=== PATIENT | female | born 1935 | race Caucasian/White ===

== ENCOUNTER 2017-12-12 08:56 | Inpatient (IN) | payer MEDICARE, BC, SELFPAY ==
[2017-12-12] VITALS (14 sets, daily range): BP systolic 130–200; BP diastolic 82–92; PULSE 75–98; RESP 12–18; TEMP 36.5–37; O2SAT 91–98; BMI 27.3; BMI 26.6
--- NOTE | 2017-12-12 09:06 | NURSING ---
NO LW OR POA
--- NOTE | 2017-12-12 09:14 | CT_ITS ---
STUDY: CT BRAIN WITHOUT CONTRAST REASON FOR EXAM: Female, 82 years old. Left-sided numbness RADIATION DOSAGE (If Supplied By Facility): CTDIvol = ( 44.99 ) mGy, DLP = ( 728.62 ) mGycm TECHNIQUE: Transaxial CT imaging of the brain was performed without administration of intravenous contrast material. Individualized dose optimization techniques were used for this CT. COMPARISON: 10/02/2009 FINDINGS: Normal soft tissue structures. Normal calvarium. There is mild cerebral atrophy with widening of the extra-axial spaces and ventricular dilatation. There are areas of decreased attenuation within the white matter tracts of the supratentorial brain, consistent with microvascular disease changes. Normal basal ganglia and thalami. Normal brainstem. There is mild cerebellar atrophy. There is no intracranial hemorrhage. At the posterior aspect of the right frontal lobe, there is a subtle area of rosen/white matter differentiation loss which may represent an area of acute ischemia. Normal visualized paranasal sinuses. CT/Brain/Head without Contrast IMPRESSION: Possible subtle area of acute ischemia in the posterior right frontal lobe. Otherwise, chronic conclusions changes of the brain. If there is high clinical suspicion for acute stroke, recommend MRI of the brain Electronically Signed: Phil Eason DO at 10:41 EDT Tel , Service support ,
--- NOTE | 2017-12-12 09:14 | EKG12_ITS ---
Test Reason : Blood Pressure : / mmHG Vent. Rate : 079 BPM Atrial Rate : 079 BPM P-R Int : 198 ms QRS Dur : 080 ms QT Int : 390 ms P-R-T Axes : 048 -14 044 degrees QTc Int : 447 ms Normal sinus rhythm Poor R wave progression Confirmed by ANA CHRISTENSEN, DARLYN ([id number]), associate entertainment editor DEYVI LYNCH ([id number]) on 12/14/2017 1:06:10 PM Referred By: PRERNA Confirmed By:DARLYN PEREZ MD
[2017-12-12] MEDS: Labetalol 100 MG/20 ML Vial 10 MG IV (09:30)
[2017-12-12 09:41] LABS: Absolute Lymphocyte Count 3.09 X10^3/ul (0.83-4.51); Basophil# 0.02 X10^3/uL; Basophil% 0.3 % (0-1); Eosinophils% 1.5 % (0-5); Hemoglobin 13.8 g/dl (12.0-15.0); Lymphocyte # 3.09 X10^3/ul (4.0); Lymphocyte % 45.4 % (19-41); Mean Corp Hgb Conc 32.1 g/gl (32-36); Mean Corpuscular Hgb 27.9 pg (27.0-32.0); Mean Corpuscular Volume 86.9 fL (81-99); Mean Platelet Vol. 11.2 fl (6.2-12.0); Monocyte# 0.57 X10^3/uL; Monocyte% 8.4 % (0-10); Neutrophil # 3.01 X10^3/uL (2.7-7.7); Neutrophil % 44.3 % (47-70); POSITIVE COUNT NO; POSITIVE DIFFERENTIAL NO; POSITIVE MORPHOLOGY NO; Platelet Count 209 K/mm3 (150-450); RBC Distribution Width CV 14.4 % (11.6-14.6); RBC Distribution Width SD 45.1 fl (35.1-43.9); Red Blood Count 4.95 M/mm3 (4.2-5.4); White Blood Count 6.8 K/mm3 (4.4-11.0)
[2017-12-12 09:50] LABS: Partial Thromboplast Time 29.3 Seconds (24.1-36.2)
[2017-12-12 09:55] LABS: Anion Gap 10 (5-15); BUN 16 mg/dL (7-18); Calcium,Total 9.9 mg/dL (8.5-10.1); Chloride 107 mmol/L (98-107); Creatinine, Serum 1.07 mg/dL (0.55-1.02); EST Glomerular Filtration Rate 52 mL/min (>60); Est Glom Filt Rate - Afr Amer 63 mL/min (>60); Estimated Creatinine Clearance 32.06 ml/min; Glucose 116 mg/dL (74-106); Potassium 3.7 mmol/L (3.5-5.1); Sodium Level 144 mmol/L (136-145)
--- NOTE | 2017-12-12 10:21 | ED.VISSUMM ---
- ER Visit Summary Date of Service: 12/12/17 Chief Complaint: Paresthesia History of Present Illness: The patient is a 82 F who presents with paresthesia left side. Onset 0700. Patient reports symptoms are better. She believes she had problem getting words out. did not noted any problem with fluency or dysarthria. She does complain of bifrontal headache. She denied any double vision, blurred vision or loss of vision. She denied any ringing in ears. She does have history of hearing problems. There is no history of M?ni?re's disease. She denies any neck pain. She denies chest pain, orthopnea or PND. She denies dyspnea, cough or dyspnea on exertion. She denies abdominal pain, nausea, vomiting or diarrhea. She denies dysuria, frequency, urgency or hematuria. She denies any myalgias arthralgias or back pain. She denies any problems with bleeding diastases or bruising easily. She denies any allergic type symptoms. She has not a good informant. There is no history of TIA or CVA. There is a history hypertension, decreased hearing fibromyalgia. Physical Examination: Initial blood pressure is 185/110. NIH is 1 for altered sensation on the left. HEENT exam is remarkable for prior cataract surgery. Trachea midline. No carotid bruit. Heart is regular without murmur, gallop or rub. S1 and S2 are normal. Lungs are clear to auscultation with good movement of air bilaterally. Abdomen soft nontender with no palpable cell mass or abdominal bruit. Distal pulses upper and lower extremity and symmetric. Patient is alert and oriented ?3. Motor is 5 over 5. Sensory is remarkable for altered sensation left side. DTRs are symmetric with no clonus or Babinski sign. Cranial 2 through 12 are intact. Cerebellar testing is normal. Test Results: CBC is remarkable for lymphocytosis. Patient metabolic panel reveals slight elevation in creatinine 1.07 and glucose 117. Coags normal. CT of the head without contrast per my review reveals no intracranial bleed. There is no mass-effect or shift. There is mild atrophy. There is no obvious stroke. Awaiting official radiology read. Radiologist report was read and there is apparent subtle ischemic stroke posterior right frontal lobe. Emergency Department Course and Treatment: With complaint of headache, altered sensation left side elevated blood pressure this may represent hypertensive urgency emergency versus TIA. Stroke order set was initiated. She was treated with 10 mg of labetalol. A second dose of labetalol was ordered however that was informed by nursing staff prior to administration her most recent blood pressure is 153/84. The second dose of labetalol was canceled. Treatment Plan: Evaluation for stroke versus hypertensive urgency/emergency Disposition: Patient to be admitted PCU Impression: 1. Acute right frontal lobe ischemic stroke 2. Hypertensive urgency/emergency 3. History of mitral valve heart disease This note was generated with [employer] dictation software. It may contain incorrect words, spelling, and punctuation that were not noted in review of the chart prior to signing ED Disposition - Plan for ED Patient: Chief Complaint: Neuro S/Sx Referrals: Ana Palmer MD [Primary Care Provider] -
--- NOTE | 2017-12-12 10:24 | ED.RN ---
PER VERBAL ORDER OF DR. GRAFF, NIH SCALE RE-EVALUATED EVERY HOUR.
[2017-12-12 10:35] LABS: Bedside Glucose 118 mg/dL (70-110)
--- NOTE | 2017-12-12 10:52 | NURSING ---
HOSPITALIST FOR DR GRAFF
--- NOTE | 2017-12-12 10:57 | NURSING ---
DR MCLAUGHLIN IN ER
--- NOTE | 2017-12-12 11:18 | PCM.HP.STD ---
Problem List (1) Acute ischemic stroke Status: Acute (2) Fibromyalgia Status: Chronic (3) Hypothyroidism Status: Chronic (4) Hypertension Status: Chronic (5) Mitral valve prolapse Status: Chronic History of Present Illness Date of Admission: 12/12/17 Chief Complaint: Tingling, headache. The patient is a 82 year old F with past medical history as mentioned above presented to the emergency room because of tingling and headache. The patient was not able to provide a precise history but she stated that this morning around 7 AM, she did not feel right and started having numbness and tingling on the left side of her body and also on her face. She mentioned that the tingling was on the whole face not on the one side. She complains of frontal headache, throbbing headache, 6 out of 10 in severity, not radiating and without aggravating or relieving factors. She denied blurred vision or slurred speech. She denied focal arm or leg weakness. She denied chest pain, shortness of breath, palpitation, dizziness or lightheadedness. She mentioned that 2 days ago, she was pushing a heavy cart at [facility] and she hurt her left hip and she has been having left hip pain since then. 2 days ago, she had left lower quadrant abdominal pain and she went to urgent care and was started on antibiotics for presumed diverticulitis. She states that she is still having this left lower quadrant abdominal pain which is dull aching pain, mild, not radiating and no associated symptoms. She denied fever or chills. She denied nausea or vomiting. She denies constipation or diarrhea. She has history of hypertension and it has been usually under control with Norvasc and metoprolol. She had a history of hypothyroidism and she has been on replacement with levothyroxine. She has a history of fibromyalgia and she has been on Flexeril, Neurontin and Percocet as needed for pain. In the emergency department, her initial blood pressure was highly elevated and she received 1 dose of IV labetalol. Blood pressure came down to around 150 systolic. Her initial NIH score was 1. Her routine blood work was unremarkable. Pro time and INR were normal. EKG revealed normal sinus rhythm without evidence of acute ischemic changes or cardiac arrhythmias. CT scan brain revealed possible septal area of acute ischemia in the posterior right frontal lobe. She is being admitted for hypertensive emergency with acute right frontal stroke as well as left hip pain, left lower quadrant abdominal pain with presumed diagnosis of diverticulitis as outpatient. Past Medical History Past Medical History (Chronic Problems): Chronic Problems Fibromyalgia (Chronic) Hypothyroidism (Chronic) Hypertension (Chronic) Mitral valve prolapse (Chronic) Allergies pentazocine lactate [From Talwin] Adverse Reaction (Verified 12/12/17 09:05) FELT VERY DISCONNECTED Home Medications: Ambulatory Orders Medication Instructions Recorded Ca/D3/Mag/Zinc/Turner/Jhony/Mgbor 1 each PO DAILY 05/27/15 [Caltrate 600+D3+Min Chew Tab] Cyclobenzaprine [Flexeril] 5 mg PO TID PRN PRN 05/27/15 Diazepam [Valium] 5 mg PO PRN PRN 05/27/15 Ergocalciferol [Vitamin D] 50,000 unit PO Q7D 05/27/15 Famotidine [Pepcid] 40 mg PO DAILY 05/27/15 Gabapentin [Neurontin] 100 mg PO DAILY 05/27/15 Levothyroxine [Synthroid] 25 mcg PO DAILY 05/27/15 Magnesium 250 mg PO DAILY 05/27/15 Methylphenidate HCl [Ritalin] 10 mg PO DAILY 05/27/15 Metoprolol(XL)Succ [Toprol Xl 50 mg PO DAILY 05/27/15 (Beta Aidee)] Multivit/Iron/FA/K/Herb No.244 1 each PO DAILY 05/27/15 [Alive Women's Energy Mv Tablet] Oxycodone HCl/Acetaminophen 2 tablet PO Q6H PRN PRN 05/27/15 [Percocet 5/325] Plant Stanol Tita [Cholest Off 900 mg PO DAILY 05/27/15 Plus] Pnv95/Iron Fum/Folic Acid 1 each PO DAILY 05/27/15 [ Caplet] Vitamin E 400 unit PO DAILY 05/27/15 Amlodipine [Norvasc] 5 mg PO DAILY #30 tablet 04/18/16 Surgical History: cholecystectomy, - - Partial colectomy. 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 Dyspnea, Syncope Respiratory: Denies: Cough, Pleuritic Pain, Shortness of Breath, Sputum production, Wheezing Gastrointestinal: Reports: Abdominal Pain. Denies: Constipation, Diarrhea, Hematochezia, Nausea, Melena, Vomiting Genitourinary: Denies: Dysuria, Frequency, Hematuria Musculoskeletal: Reports: Joint Pain - Left hip pain.. Denies: Arm Pain, Back Pain, Foot Pain Skin: Denies: Dryness, Rash Neurological: Reports: Balance problems, Headaches, Numbness, Tingling. Denies: Double vision, Change in Speech, Slurred speech, Confusion, Incoordination Psychiatric: Denies: Anxiety, Depression Endocrine: Denies: Change in Body Habitus, Polydipsia VTE Information - Inpt Only VTE Present on Admission: No VTE Mechan Device Prophylaxis: None VTE Pharm Prophylaxis ordered?: Yes Patient Problems: Active and Suspected Problems Acute ischemic stroke (Acute) - Physical Exam General: Alert, Oriented x3, Cooperative, No apparent distress HEENT: Atraumatic, PERRLA, EOMI, Normocephalic Oral: Moist Mucosa, No Gingival or Mucosal Lesions/ Ulcerations Neck: Supple, No JVD, Negative Carotid Bruits, Trachea Midline, Thyroid Normal Size and Texture Lungs: Clear to auscultation, No rhonchi, No wheeze, No rales, Diminished Cardiovascular: Regular rate, Regular Rhythm, Normal S1, Normal S2, No murmurs, PMI Normal Abdomen: Bowel Sounds Present, Soft, Non Tender, Non-Distended, No Hepato-splenomegaly Extremities: No clubbing, No cyanosis, No edema Skin: No rashes, No breakdown Lymphatic: No Cervical, Supraclavicular, or Inguinal Adenopathy Neurological: Cranial nerves II-XII grossly intact, Motor Exam 5/5 strength throughout Psych/Mental Status: Normal Affect, Appropriate, Alert and oriented to time, place, person, mood and affect Vital Signs Temp Pulse Resp BP Pulse Ox 98.6 F 85 17 130/82 H 95 12/12/17 08:57 12/12/17 11:01 07/22/18 11:01 12/12/17 11:01 12/12/17 11:01 Oxygen Delivery Method Room Air Weight: 149 lb 14.629 oz Body Mass Index (BMI) 27.3 Finger Stick Blood Glucose 118 Laboratory Tests Past 24 Hrs 12/12/17 12/12/17 12/12/17 09:13 09:13 09:13 WBC 6.8 RBC 4.95 Hgb 13.8 Hct 43.0 MCV 86.9 MCH 27.9 MCHC 32.1 RDW 14.4 RDW Differential 45.1 H Plt Count 209 MPV 11.2 Immature Gran % (Auto) 0.100 Neut % (Auto) 44.3 L Lymph % (Auto) 45.4 H [place] % (Auto) 8.4 Eos % (Auto) 1.5 Baso % (Auto) 0.3 Absolute Neuts (auto) 3.0 Absolute Lymphs (auto) 3.09 Total Counted Not Reportable PT 13.0 INR 1.0 APTT 29.3 Sodium 144 Potassium 3.7 Chloride 107 Carbon Dioxide 27.0 Anion Gap 10 BUN 16 Creatinine 1.07 H Estim Creat Clear Calc 32.06 Est GFR (MDRD) Af Amer 63 Est GFR (MDRD) Non-Af 52 L BUN/Creatinine Ratio 15.0 Glucose 116 H Calcium 9.9 POC Glucose 12/12/17 10:30 POC Glucose 118 H Clinical Impression(s) from Imaging Studies Brain CT 12/12/17 09:14 IMPRESSION: Possible subtle area of acute ischemia in the posterior right frontal lobe. Otherwise, chronic conclusions changes of the brain. If there is high clinical suspicion for acute stroke, recommend MRI of the brain Electronically Signed: Phil Eason DO at 10:41 EDT Tel , Service support , Assessment/Plan All Active Problems Acute ischemic stroke (Acute) This is an 82 years old female patient presented to the emergency department because of paresthesias, headache and she was found to have possible acute ischemic infarct of the posterior right frontal lobe and she is being admitted for evaluation. #1 paresthesia/headache/possible acute ischemic stroke of the right frontal lobe: CT scan brain reviewed, revealed subtle area of acute ischemia in the posterior right frontal lobe. She has no focal deficit on physical exam. Blood pressure improved after IV labetalol. EKG revealed normal sinus rhythm, no acute ischemic changes or cardiac arrhythmias. Plan: Admit to PCU, cardiac monitoring, NIH stroke scale, start aspirin and Lipitor, MRI brain, MRA of the neck, 2D echocardiogram, neurology consult, PT OT evaluation and treatment. #2 hypertensive emergency: Initial blood pressure upon arrival to ER was 200/92. She does have end organ damage which is the acute stroke. She received 1 dose of IV labetalol and blood pressure came down to 150 systolic. Plan to continue home medications including Norvasc and metoprolol, and goal blood pressure is around 160/90. #3 left hip pain: Likely because of muscle strain. Patient mentioned that she was pushing a heavy cart when she started having this pain. Plan: X-ray left hip, Tylenol as needed for pain, OxyIR as needed for pain. #4 left lower quadrant abdominal pain/presumed diagnosis of diverticulitis: She went to urgent care a few days ago, was started on 2 antibiotics for presumed diverticulitis. She mentioned the pain is slightly getting better. Abdominal examination is benign. She denied any associated symptoms such as nausea, vomiting, constipation or diarrhea. Plan to hold off any more antibiotics and if she continued to have this abdominal pain, or bruit CT scan abdomen. #5 hypertension: Blood pressure is elevated, plan as above. Continue Norvasc and metoprolol. #6 hypothyroidism: Continue levothyroxine. #7 fibromyalgia: Continue Flexeril, Neurontin, OxyIR as needed for pain #8 mitral valve prolapse: will do an echocardiogram. #9 DVT prophylaxis: Subcu Lovenox. This note was generated with [employer] dictation software. It may contain incorrect words, spelling, and punctuation that were not noted in checking the note before signing. Code Visit Inpatient E&M: 64127 Init Hosp L3
--- NOTE | 2017-12-12 11:23 | NURSING ---
114 ACUTE STROKE, HYPERTENSIVE EMERGENCY, ABD PAIN, LEFT HIP PAIN ASHELFAH
--- NOTE | 2017-12-12 11:32 | HP.PCM_ITS ---
Problem List (1) Acute ischemic stroke Status: Acute (2) Fibromyalgia Status: Chronic (3) Hypothyroidism Status: Chronic (4) Hypertension Status: Chronic (5) Mitral valve prolapse Status: Chronic History of Present Illness Date of Admission: 12/12/17 Chief Complaint: Tingling, headache. The patient is a 82 year old F with past medical history as mentioned above presented to the emergency room because of tingling and headache. The patient was not able to provide a precise history but she stated that this morning around 7 AM, she did not feel right and started having numbness and tingling on the left side of her body and also on her face. She mentioned that the tingling was on the whole face not on the one side. She complains of frontal headache, throbbing headache, 6 out of 10 in severity, not radiating and without aggravating or relieving factors. She denied blurred vision or slurred speech. She denied focal arm or leg weakness. She denied chest pain, shortness of breath, palpitation, dizziness or lightheadedness. She mentioned that 2 days ago, she was pushing a heavy cart at [facility] and she hurt her left hip and she has been having left hip pain since then. 2 days ago, she had left lower quadrant abdominal pain and she went to urgent care and was started on antibiotics for presumed diverticulitis. She states that she is still having this left lower quadrant abdominal pain which is dull aching pain, mild, not radiating and no associated symptoms. She denied fever or chills. She denied nausea or vomiting. She denies constipation or diarrhea. She has history of hypertension and it has been usually under control with Norvasc and metoprolol. She had a history of hypothyroidism and she has been on replacement with levothyroxine. She has a history of fibromyalgia and she has been on Flexeril, Neurontin and Percocet as needed for pain. In the emergency department, her initial blood pressure was highly elevated and she received 1 dose of IV labetalol. Blood pressure came down to around 150 systolic. Her initial NIH score was 1. Her routine blood work was unremarkable. Pro time and INR were normal. EKG revealed normal sinus rhythm without evidence of acute ischemic changes or cardiac arrhythmias. CT scan brain revealed possible septal area of acute ischemia in the posterior right frontal lobe. She is being admitted for hypertensive emergency with acute right frontal stroke as well as left hip pain , left lower quadrant abdominal pain with presumed diagnosis of diverticulitis as outpatient. Past Medical History Past Medical History (Chronic Problems): Chronic Problems Fibromyalgia (Chronic) Hypothyroidism (Chronic) Hypertension (Chronic) Mitral valve prolapse (Chronic) Allergies pentazocine lactate [From Talwin] Adverse Reaction (Verified 12/12/17 09:05) FELT VERY DISCONNECTED Home Medications: Ambulatory Orders Medication Instructions Recorded Ca/D3/Mag/Zinc/Turner/Jhony/Mgbor 1 each PO DAILY 05/27/15 [Caltrate 600+D3+Min Chew Tab] Cyclobenzaprine [Flexeril] 5 mg PO TID PRN PRN 05/27/15 Diazepam [Valium] 5 mg PO PRN PRN 05/27/15 Ergocalciferol [Vitamin D] 50,000 unit PO Q7D 05/27/15 Famotidine [Pepcid] 40 mg PO DAILY 05/27/15 Gabapentin [Neurontin] 100 mg PO DAILY 05/27/15 Levothyroxine [Synthroid] 25 mcg PO DAILY 05/27/15 Magnesium 250 mg PO DAILY 05/27/15 Methylphenidate HCl [Ritalin] 10 mg PO DAILY 05/27/15 Metoprolol(XL)Succ [Toprol Xl 50 mg PO DAILY 05/27/15 (Beta Aidee)] Multivit/Iron/FA/K/Herb No.244 1 each PO DAILY 05/27/15 [Alive Women's Energy Mv Tablet] Oxycodone HCl/Acetaminophen 2 tablet PO Q6H PRN PRN 05/27/15 [Percocet 5/325] Plant Stanol Tita [Cholest Off 900 mg PO DAILY 05/27/15 Plus] Pnv95/Iron Fum/Folic Acid 1 each PO DAILY 05/27/15 [ Caplet] Vitamin E 400 unit PO DAILY 05/27/15 Amlodipine [Norvasc] 5 mg PO DAILY #30 tablet 04/18/16 Surgical History: cholecystectomy, - - Partial colectomy. 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 Dyspnea, Syncope Respiratory: Denies: Cough, Pleuritic Pain, Shortness of Breath, Sputum production, Wheezing Gastrointestinal: Reports: Abdominal Pain. Denies: Constipation, Diarrhea, Hematochezia, Nausea, Melena, Vomiting Genitourinary: Denies: Dysuria, Frequency, Hematuria Musculoskeletal: Reports: Joint Pain - Left hip pain.. Denies: Arm Pain, Back Pain, Foot Pain Skin: Denies: Dryness, Rash Neurological: Reports: Balance problems, Headaches, Numbness, Tingling. Denies : Double vision, Change in Speech, Slurred speech, Confusion, Incoordination Psychiatric: Denies: Anxiety, Depression Endocrine: Denies: Change in Body Habitus, Polydipsia VTE Information - Inpt Only VTE Present on Admission: No VTE Mechan Device Prophylaxis: None VTE Pharm Prophylaxis ordered?: Yes Patient Problems: Active and Suspected Problems Acute ischemic stroke (Acute) - Physical Exam General: Alert, Oriented x3, Cooperative, No apparent distress HEENT: Atraumatic, PERRLA, EOMI, Normocephalic Oral: Moist Mucosa, No Gingival or Mucosal Lesions/ Ulcerations Neck: Supple, No JVD, Negative Carotid Bruits, Trachea Midline, Thyroid Normal Size and Texture Lungs: Clear to auscultation, No rhonchi, No wheeze, No rales, Diminished Cardiovascular: Regular rate, Regular Rhythm, Normal S1, Normal S2, No murmurs, PMI Normal Abdomen: Bowel Sounds Present, Soft, Non Tender, Non-Distended, No Hepato- splenomegaly Extremities: No clubbing, No cyanosis, No edema Skin: No rashes, No breakdown Lymphatic: No Cervical, Supraclavicular, or Inguinal Adenopathy Neurological: Cranial nerves II-XII grossly intact, Motor Exam 5/5 strength throughout Psych/Mental Status: Normal Affect, Appropriate, Alert and oriented to time, place, person, mood and affect Vital Signs Temp Pulse Resp BP Pulse Ox 98.6 F 85 17 130/82 H 95 12/12/17 08:57 12/12/17 11:01 07/22/18 11:01 12/12/17 11:01 12/12/17 11:01 Oxygen Delivery Method Room Air Weight: 149 lb 14.629 oz Body Mass Index (BMI) 27.3 Finger Stick Blood Glucose 118 Laboratory Tests Past 24 Hrs 12/12/17 12/12/17 12/12/17 09:13 09:13 09:13 WBC 6.8 RBC 4.95 Hgb 13.8 Hct 43.0 MCV 86.9 MCH 27.9 MCHC 32.1 RDW 14.4 RDW Differential 45.1 H Plt Count 209 MPV 11.2 Immature Gran % (Auto) 0.100 Neut % (Auto) 44.3 L Lymph % (Auto) 45.4 H Hardin % (Auto) 8.4 Eos % (Auto) 1.5 Baso % (Auto) 0.3 Absolute Neuts (auto) 3.0 Absolute Lymphs (auto) 3.09 Total Counted Not Reportable PT 13.0 INR 1.0 APTT 29.3 Sodium 144 Potassium 3.7 Chloride 107 Carbon Dioxide 27.0 Anion Gap 10 BUN 16 Creatinine 1.07 H Estim Creat Clear Calc 32.06 Est GFR (MDRD) Af Amer 63 Est GFR (MDRD) Non-Af 52 L BUN/Creatinine Ratio 15.0 Glucose 116 H Calcium 9.9 POC Glucose 12/12/17 10:30 POC Glucose 118 H Clinical Impression(s) from Imaging Studies Brain CT 12/12/17 09:14 IMPRESSION: Possible subtle area of acute ischemia in the posterior right frontal lobe. Otherwise, chronic conclusions changes of the brain. If there is high clinical suspicion for acute stroke, recommend MRI of the brain Electronically Signed: Phil Eason DO at 10:41 EDT Tel , Service support , Assessment/Plan All Active Problems Acute ischemic stroke (Acute) This is an 82 years old female patient presented to the emergency department because of paresthesias, headache and she was found to have possible acute ischemic infarct of the posterior right frontal lobe and she is being admitted for evaluation. #1 paresthesia/headache/possible acute ischemic stroke of the right frontal lobe : CT scan brain reviewed, revealed subtle area of acute ischemia in the posterior right frontal lobe. She has no focal deficit on physical exam. Blood pressure improved after IV labetalol. EKG revealed normal sinus rhythm, no acute ischemic changes or cardiac arrhythmias. Plan: Admit to PCU, cardiac monitoring, NIH stroke scale, start aspirin and Lipitor, MRI brain, MRA of the neck, 2D echocardiogram, neurology consult, PT OT evaluation and treatment. #2 hypertensive emergency: Initial blood pressure upon arrival to ER was 200/ 92. She does have end organ damage which is the acute stroke. She received 1 dose of IV labetalol and blood pressure came down to 150 systolic. Plan to continue home medications including Norvasc and metoprolol, and goal blood pressure is around 160/90. #3 left hip pain: Likely because of muscle strain. Patient mentioned that she was pushing a heavy cart when she started having this pain. Plan: X-ray left hip, Tylenol as needed for pain, OxyIR as needed for pain. #4 left lower quadrant abdominal pain/presumed diagnosis of diverticulitis: She went to urgent care a few days ago, was started on 2 antibiotics for presumed diverticulitis. She mentioned the pain is slightly getting better. Abdominal examination is benign. She denied any associated symptoms such as nausea, vomiting, constipation or diarrhea. Plan to hold off any more antibiotics and if she continued to have this abdominal pain, or bruit CT scan abdomen. #5 hypertension: Blood pressure is elevated, plan as above. Continue Norvasc and metoprolol. #6 hypothyroidism: Continue levothyroxine. #7 fibromyalgia: Continue Flexeril, Neurontin, OxyIR as needed for pain #8 mitral valve prolapse: will do an echocardiogram. #9 DVT prophylaxis: Subcu Lovenox. This note was generated with [employer] dictation software. It may contain incorrect words, spelling, and punctuation that were not noted in checking the note before signing. Code Visit Inpatient E&M: 68858 Init Hosp L3
--- NOTE | 2017-12-12 11:49 | NURSING ---
Bonilla notified patient may transfer to PCU.
--- NOTE | 2017-12-12 12:30 | ECHOD_ITS ---
Reason For Study: TIA/CVA Procedure This was a 2D Doppler, Color Flow transthoracic echocardiogram. The exam was of fair technical quality due to diminished acoustic windows. The study was technically difficult. Exam performed portable in patient room. Left Ventricle Normal LV size. Left ventricular systolic function is normal. The estimated ejection fraction is 65 %. Diastolic function: considered indeterminate. No regional wall motion abnormalities noted. Right Ventricle Normal RV size. Normal systolic function. Atria Normal left atrium. Normal right atrium. No doppler evidence for ASD. Bubble contrast study negative for right to left interatrial shunt. Mitral Valve There is mild mitral annular calcification. Mild diffuse mitral valve thickening. Mild mitral valve prolapse. Trivial mitral valve insufficiency. Tricuspid Valve Normal tricuspid valve. Trivial tricuspid valve insufficiency. Right ventricular systolic pressure estimated to be 24 mmHg. Aortic Valve Trisinus/trileaflet aortic valve. Mild diffuse aortic valve thickening. Mild (1+) aortic valve insufficiency. Pulmonic Valve The pulmonic valve is not well visualized. Mild (1+) pulmonic valve insufficiency. Great Vessels Normal sized aortic root. Pericardium/Pleural No pericardial effusion. Medication Performed a rapid injection of agitated mix of 9 cc saline and 1cc air to assess for atrial septal defect. MMode/2D Measurements & Calculations LVIDd: 4.2 cm IVSd: 1.1 cm Ao root diam: 3.5 cm LVIDs: 2.8 cm LVPWd: 1.1 cm LA dimension: 2.7 cm RVDd: 2.6 cm FS: 32.3 % LAV(MOD-bp): 45.0 ml LA A4 area: 14.4 cm2 RA A4 area: 10.6 cm2 LAV(MOD-bp) Indexed: 26.8 ml/m2 LAV(MOD-sp2): 49.9 ml LAV(MOD-sp4): 36.6 ml Doppler Measurements & Calculations MV E max steve: 63.5 cm/sec Lat Peak E' Steve: 5.9 cm/sec Med Peak E' Steve: 4.6 cm/sec MV A max steve: 108.5 cm/sec E/E' lat: 10.8 E/E' med: 13.7 MV E/A: 0.58 Ao V2 max: 120.6 cm/sec AI max steve: 506.2 cm/sec LV V1 max: 96.7 cm/sec Ao max P.8 mmHg AI max P.5 mmHg LV V1 max P.8 mmHg AI dec slope: 324.0 cm/sec2 AI P1/2t: 457.6 msec PA V2 max: 73.4 cm/sec TR max steve: 229.9 cm/sec TR max P.3 mmHg Interpretation Summary The study was technically difficult. Left ventricular systolic function is normal. The estimated ejection fraction is 65 %. There is mild mitral annular calcification. Mild diffuse mitral valve thickening. Mild mitral valve prolapse. Trivial mitral valve insufficiency. Trivial tricuspid valve insufficiency. Mild diffuse aortic valve thickening. Mild (1+) aortic valve insufficiency. Mild (1+) pulmonic valve insufficiency. Right ventricular systolic pressure estimated to be 24 mmHg. Diastolic function: considered indeterminate. Ordering Physician: Chandrakant Akhtar Referring Physician: Ana Palmer Performed By: Anita Malhotra RDCS, RVT
--- NOTE | 2017-12-12 12:30 | RAD_ITS ---
STUDY: X-RAY - LEFT HIP REASON FOR EXAM: Female, 82 years old. Pain from pushing a cart TECHNIQUE: Radiological exam, hip, unilateral, with pelvis when performed; 2 or 3 views. COMPARISON: None. FINDINGS: The bones appear somewhat osteopenic. Normal acetabulum. Normal hip joint. RAD/Hip Min 2 Views (Portable) IMPRESSION: Osteopenia, otherwise, Normal x-ray examination left hip. Electronically Signed: Shannen Perez MD at 17:08 EDT Tel , Service support ,
[2017-12-12] MEDS: Acetaminophen 325 MG Tablet 650 MG PO ×2 (13:18→22:25)
[2017-12-12] MEDS: oxyCODONE 5 MG Tablet PO (13:18)
[2017-12-12] MEDS: 0.9% Normal Saline 1,000 ML 75 ML IV (13:22)
[2017-12-12] MEDS: HYDROcodone Bitartrate/Apap 5/325 Tablet PO (16:59)
[2017-12-12] MEDS: diazePAM 5 MG Tablet 10 MG PO (22:25)
[2017-12-12] MEDS: Ciprofloxacin 500 MG Tablet PO (22:25)
[2017-12-12] MEDS: metroNIDAZOLE 500 MG Tablet PO (22:25)
[2017-12-13] VITALS (16 sets, daily range): BP systolic 133–175; BP diastolic 78–95; PULSE 73–94; RESP 16–18; TEMP 36.7–37.4; O2SAT 93–95; BMI 26.6
[2017-12-13] MEDS: Oxymetazoline 0.05% 1 SPRAY SPRAY.BTL 2 SPRAY NASAL (00:20)
[2017-12-13] MEDS: HYDROcodone Bitartrate/Apap 5/325 Tablet PO ×2 (00:27→15:55)
[2017-12-13 00:51] LABS: Bacteria 0 SEEN /hpf (None Seen); Mucous, Urine 0 SEEN /hpf (<or=2+); Red Blood Cells-Urine 0 SEEN /hpf (0-5); Squamous Epithelial Cells - UA 0 SEEN /hpf (5-10); White Blood Cells 0 SEEN /hpf (0-5)
[2017-12-13 01:27] LABS: Color, Urine Yellow (Yellow); Glucose, Dipstick Normal (Normal); Ketone-Dipstick Negative (Negative); Leukocyte Esterase-Dipstick Negative /ul (Negative); Nitrite-Dipstick Negative (Negative); Occult Blood-Urine Negative /ul (Negative); Protein-Dipstick Negative (Negative); Urine Bilirubin Dipstick Negative (Negative); Urine Clarity Clear (Clear); Urine Urobilinogen Normal (Normal)
[2017-12-13] MEDS: Ondansetron 4 MG/2 ML Vial IV ×2 (04:04→23:40)
[2017-12-13] MEDS: 0.9% NaCl Peripheral Flush Adult/Peds IV ×4 (04:04→21:49)
--- NOTE | 2017-12-13 04:11 | EKG12_ITS ---
Test Reason : AM EKG Blood Pressure : / mmHG Vent. Rate : 086 BPM Atrial Rate : 086 BPM P-R Int : 222 ms QRS Dur : 078 ms QT Int : 376 ms P-R-T Axes : 055 -11 031 degrees QTc Int : 449 ms Sinus rhythm with 1st degree A-V block with occasional Premature ventricular complexes Confirmed by ANA CHRISTENSEN, DARLYN ([id number]), magazine editor DEYVI LYNCH ([id number]) on 12/14/2017 2:19:23 PM Referred By: ARNOLDO Confirmed By:DARLYN PEREZ MD
[2017-12-13] MEDS: Levothyroxine 25 MCG TABLET PO (05:00)
[2017-12-13] MEDS: metroNIDAZOLE 500 MG Tablet PO (05:00)
[2017-12-13 05:37] LABS: Cholesterol 214 mg/dL (200); High Density Lipoprotein 46 mg/dL; Triglycerides 211 mg/dL; Very Low Density Lipoprotein 42 mg/dL (5-40)
[2017-12-13] MEDS: Morphine 2 MG/ML Syringe IV ×3 (07:58→21:49)
[2017-12-13] MEDS: Aspirin 81 MG TAB.CHEW PO (07:59)
[2017-12-13] MEDS: Magnesium Oxide 400 MG Tablet PO (07:59)
[2017-12-13] MEDS: Gabapentin 100 MG Capsule PO (08:00)
--- NOTE | 2017-12-13 08:01 | CT_ITS ---
STUDY: CT ABDOMEN AND PELVIS WITHOUT CONTRAST REASON FOR EXAM: Female, 82 years old. LLQ PAIN-HYPERTENSIVE URGENCY. RADIATION DOSAGE (If Supplied By Facility): CTDIvol = ( 8.7 ) mGy, DLP = ( 434.7 ) mGycm TECHNIQUE: Transaxial images were obtained from the dome of the diaphragm to the symphysis pubis without oral contrast, and without intravenous contrast. Sagittal and coronal images were reconstructed. Individualized dose optimization techniques were used for this CT. COMPARISON: None. FINDINGS: The visualized lung bases are unremarkable. The visualized portions of the heart are within normal limits. Normal liver. There are surgical clips in the gallbladder fossa consistent with a prior cholecystectomy. Normal spleen. Normal pancreas. There is a 2 cm left adrenal nodule. Normal right kidney. Normal left kidney. Normal visualized stomach. Normal small intestine. There are surgical sutures at the sigmoid There is non-visualization of the appendix. There is diffuse atherosclerotic calcification of the abdominal aorta, without a demonstrated aneurysm. Normal inferior vena cava. Normal retroperitoneum. Normal urinary bladder. There is a calcified leiomyoma. Normal abdominal wall. There are diffuse degenerative changes of the visualized lumbar spine. CT/Abdomen/Pelvis without Cont IMPRESSION: No evidence of acute intra-abdominal or intrapelvic abnormality. Sigmoid surgical changes. Uterine Leiomyoma. Electronically Signed: Akanksha Anderson MD at 8:59 EDT Tel , Service support ,
--- NOTE | 2017-12-13 08:10 | PN_ITS ---
Patient Problems: Active and Suspected Problems Acute ischemic stroke (Acute) Subjective: Chief complaint: Follow-up after admission for acute ischemic stroke, hypertensive emergency and left lower quadrant abdominal pain. Patient seen and examined. No acute events overnight. This morning, she complained of persistent abdominal pain, it is on the left lower quadrant, goes across the lower part of her abdomen, sharp pain, 7 out of 10 in severity, associated with nausea and she started having some loose stool. Denies fever chills. Today, she denied numbness or tingling, denied blurred vision or slurred speech. Denied focal arm or leg weakness. Her vital signs are stable. - Physical Exam General: Alert, Oriented x3, Cooperative, - - She is in moderate pain. HEENT: Atraumatic, PERRLA, EOMI, Normocephalic Oral: Moist Mucosa, No Gingival or Mucosal Lesions/ Ulcerations Neck: Supple, No JVD, Negative Carotid Bruits, Trachea Midline, Thyroid Normal Size and Texture Lungs: Clear to auscultation, Normal air movement, No rhonchi, No wheeze, No rales Cardiovascular: Regular rate, Regular Rhythm, Normal S1, Normal S2, No murmurs, PMI Normal Abdomen: Bowel Sounds Present, Soft, Non-Distended, No Hepato-splenomegaly, Obese, Tender - Lower abdominal tenderness, no guarding or rigidity. Extremities: No clubbing, No cyanosis, No edema Skin: No rashes, No breakdown Lymphatic: No Cervical, Supraclavicular, or Inguinal Adenopathy Neurological: Cranial nerves II-XII grossly intact, Motor Exam 5/5 strength throughout Psych/Mental Status: Normal Affect, Appropriate, Alert and oriented to time, place, person, mood and affect Vital Signs Temp Pulse Resp BP Pulse Ox 98.0 F 87 18 162/93 H 93 12/13/17 07:52 12/13/17 07:52 12/13/17 07:52 12/13/17 07:52 12/13/17 07:52 Oxygen Delivery Method Room Air Weight: 147 lb 11.355 oz Body Mass Index (BMI) 26.6 Intake and Output for Last 24 Hours 12/11/17 12/12/17 12/13/17 23:59 23:59 23:59 Intake Total 936 / 936 1752 / 1752 Balance 936 / 936 1752 / 1752 Laboratory Tests Past 24 Hrs 12/12/17 12/13/17 12/13/17 20:40 04:32 04:32 Troponin I < 0.015 Triglycerides 211 H Cholesterol 214 H LDL Cholesterol 126 VLDL Cholesterol 42 H HDL Cholesterol 46 Urine Color Yellow Urine Clarity Clear Urine pH 7.0 Ur Specific [place] 1.010 Urine Protein Negative Urine Glucose (UA) Normal Urine Ketones Negative Urine Occult Blood Negative Urine Nitrite Negative Urine Bilirubin Negative Urine Urobilinogen Normal Ur Leukocyte Esterase Negative Urine RBC 0 SEEN Urine WBC 0 SEEN Ur Squamous Epith Cells 0 SEEN Urine Bacteria 0 SEEN Urine Mucus 0 SEEN Medical Necessity - Tobacco Use Smoking Status: Former smoker Assessment/Plan All Active Problems Acute ischemic stroke (Acute) This is an 82 years old female patient presented to the emergency department because of paresthesias, headache and she was found to have possible acute ischemic infarct of the posterior right frontal lobe and she is being admitted for evaluation. #1 paresthesia/headache/possible acute ischemic stroke of the right frontal lobe : Today, patient she has normal symptoms and no focal deficit on physical exam. Her vital signs are stable. She is on aspirin, statins. Lipid profile reviewed. EKG revealed normal sinus rhythm, no acute ischemic changes or cardiac arrhythmias. Plan for MRI brain, MRA of the neck today as well as 2D echocardiogram, neurology consulted. #2 hypertensive emergency: Blood pressure under better control. She is on metoprolol only. #3 left hip pain: Likely because of muscle strain. X-ray of the left hip showed no acute fractures. Plan for pain control with Tylenol and OxyIR. #4 left lower quadrant abdominal pain/presumed diagnosis of diverticulitis: Patient continued to complain of left lower quadrant abdominal pain and today, it went across her lower abdomen, started having nausea and loose stool. Plan: IV fluids, CT scan abdomen and pelvis without contrast, IV morphine as needed for pain. #5 hypertension: Blood pressure under better control, continue metoprolol. #6 hypothyroidism: Continue levothyroxine. #7 fibromyalgia: Continue Flexeril, Neurontin, OxyIR as needed for pain #8 mitral valve prolapse: will do an echocardiogram. #9 DVT prophylaxis: Subcu Lovenox. This note was generated with [employer] dictation software. It may contain incorrect words, spelling, and punctuation that were not noted in checking the note before signing. Code Visit Inpatient E&M: 64900 Subs Hosp L3
--- NOTE | 2017-12-13 08:37 | MRI_ITS ---
STUDY: MRA OF THE HEAD WITHOUT CONTRAST REASON FOR EXAM: Female, 82 years old. cva -- tingling left side, dickerson. TECHNIQUE: 3-D [id number] (TOF) imaging was performed with MIPs. The study was performed unenhanced. COMPARISON: None. FINDINGS: Normal bilateral petrous carotid arteries. Normal right cavernous carotid artery with a normal supraclinoid bifurcation. Normal left cavernous carotid artery with a normal supraclinoid bifurcation. Normal right A1 segments of the anterior cerebral artery. Normal left A1 segments of the anterior cerebral artery. Normal intact anterior communicating artery (ACOM). Normal bilateral A2 segments of the anterior cerebral arteries. Normal right M1 and M2 segments of the middle cerebral arteries, with a normal M1 bifurcation. Normal left M1 and M2 segments of the middle cerebral arteries, with a normal M1 bifurcation. There is a persistent origin of the right posterior cerebral artery with absence of the P1 segment of the right posterior cerebral artery. There is non-visualization of the left posterior communicating artery (PCOM). There is a small atretic left vertebral artery with a dominant right vertebral artery. Normal basilar artery with a normal basilar bifurcation. The visualized bilateral superior cerebellar (SCA) arteries are normal. Normal bilateral P1, P2 and visualized P3 segments of the posterior cerebral arteries. There is no demonstrated aneurysm of the [place]. There is no major vessel occlusion or hemodynamically significant stenosis. There is no demonstrated abnormality of the visualized brain. MRI/MRA Head ONLY without Contrast IMPRESSION: Unremarkable MRA of the head Electronically Signed: Akanksha Anderson MD at 11:35 EDT Tel , Service support ,
--- NOTE | 2017-12-13 08:37 | MRI_ITS ---
STUDY: MRI BRAIN WITHOUT CONTRAST REASON FOR EXAM: Female, 82 years old. cva -- left side tingling, dickerson x several days. TECHNIQUE: Standardized multiplanar fat and water weighted pulse sequences were obtained. COMPARISON: None. FINDINGS: There is mild cerebral atrophy with widening of the extra-axial spaces and ventricular dilatation. There are multiple white matter hyperintensities, distributed throughout the deep white matter tracts of the cerebral hemispheres, consistent with moderate chronic white matter ischemic changes. Normal bilateral basal ganglia. Normal thalami. There is no extra-axial fluid accumulation. Normal flow voids within the major intracranial circulation suggesting patency by spin echo criteria. Normal sella turcica, pituitary gland, infundibular stalk, optic chiasm and hypothalamus. Normal tectal plate and pineal gland. There are chronic white matter ischemic changes of the josefa. The midbrain and medulla are otherwise normal. Normal cerebellum. Normal basal cisterns. Right mastoid fluid is noted. MRI/Brain without Contrast IMPRESSION: No acute intracranial abnormality. No acute intracranial abnormality Electronically Signed: Akanksha Anderson MD at 10:52 EDT Tel , Service support ,
--- NOTE | 2017-12-13 09:09 | MRI_ITS ---
STUDY: MRA NECK WITH AND WITHOUT CONTRAST REASON FOR EXAM: Female, 82 years old. cva left side tingling, dickerson x several days TECHNIQUE: 3-D [id number] (TOF) imaging was performed in an 1.5 T MRI scanner. 7 ml of Gadavist was administered for the contrast enhanced images. COMPARISON: None. FINDINGS: RIGHT CAROTID ARTERIES: Normal right common carotid artery (CCA). Normal right common carotid bulb. Normal origin of the right internal carotid (ICA) artery without a hemodynamically significant stenosis. Normal visualized cervical portion of the right internal carotid artery. Normal origin of the right external carotid artery (ECA). LEFT CAROTID ARTERIES: Normal left common carotid artery (CCA). Normal left common carotid bulb. Normal origin of the left internal carotid (ICA) artery without a hemodynamically significant stenosis. Normal visualized cervical portion of the left internal carotid artery. Normal origin of the left external carotid artery (ECA). VERTEBRAL ARTERIES: There is antegrade flow within the bilateral vertebral arteries with a small left vertebral artery, and a dominant right vertebral artery. MRI/MRA Neck WITH and W/O Contrast IMPRESSION: Normal bilateral cervical carotid and vertebral arteries. Electronically Signed: Akanksha Anderson MD at 12:43 EDT Tel , Service support ,
[2017-12-13] MEDS: 0.9% Normal Saline 1,000 ML 100 ML IV ×2 (10:46→20:35)
[2017-12-13] MEDS: Enoxaparin 30 MG/0.3 ML Syringe SC (10:50)
[2017-12-13] MEDS: Metoprolol(XL)Succ 50 MG Tablet PO (10:50)
[2017-12-13] MEDS: Atorvastatin Calcium 80 MG Tablet PO (10:51)
[2017-12-13] MEDS: Famotidine 20 MG Tablet 40 MG PO (10:51)
--- NOTE | 2017-12-13 14:40 | CASEMGMT ---
Face to Face with patient for initial transition planning/care coordination assessment. JENNA JENNINGS introduced self and role at [facility], pt voices understanding and consents to assessment at this time. Pt is lying in bed in no distress at this time. Pt is A/O x4 at this time and answers all questions appropriately at this time. Care providers, pharmacy, and demographics verified. See attached link. Pt states no further concerns/needs at this time. Advised pt to ask for CM if any further questions/concerns/needs arise, voices understanding. CM to follow for any further discharge planning/needs. PLAN: [place] JENNA JENNINGS
--- NOTE | 2017-12-13 16:03 | NURSING ---
PT CALLED OUT AND SAID SHE HAS BEEN WATCHING THE CLOCK FOR HER PAIN MEDICATION. THIS RN EXPLAINED TO PT AND FAMILY THE IMPORTANCE OF TRYING TO GET BACK TO HER HOME REGIMEN OF HER NORCO. THIS RN EXPLAINED THAT SHE WILL NOT BE ABLE TO GO HOME ON THE IV MORPHINE SO SHE WILL NEED TO TRY TO USE THE MORPHINE TO SEE THAT IT IS WORKING. RN STATED THAT SHE COULD STILL USE THE MORPHINE IF NEEDED FOR BREAK THROUGH PAIN BUT THAT SHE SHOULD SEE HOW THE NORCO TREATS THE PAIN TOO. PT WAS AGREEABLE WITH THIS PLAN.
[2017-12-13] MEDS: diazePAM 5 MG Tablet 10 MG PO (21:49)
[2017-12-13] MEDS: Fluticasone 0.05% 1 SPRAY NASAL.SRY NASAL (21:50)
[2017-12-14] VITALS (12 sets, daily range): BP systolic 138–172; BP diastolic 85–93; PULSE 76–91; RESP 12–18; TEMP 36.8–37.2; O2SAT 91–96; BMI 26.6
[2017-12-14] MEDS: 0.9% Normal Saline 1,000 ML 100 ML IV (05:43)
[2017-12-14] MEDS: proMETHazine 25 MG/ML Syringe 12.5 MG IV (05:43)
[2017-12-14 06:18] LABS: Absolute Lymphocyte Count 2.04 X10^3/ul (0.83-4.51); Absolute Neutrophil Count 4.2 X10^3/uL (2.0-7.7); Basophil# 0.03 X10^3/uL; Basophil% 0.4 % (0-1); Eosinophil# 0.03 X10^3/uL; Eosinophils% 0.4 % (0-5); Hematocrit 39.4 % (37-47); Lymphocyte # 2.04 X10^3/ul (4.0); Mean Corpuscular Hgb 28.3 pg (27.0-32.0); Mean Corpuscular Volume 85.8 fL (81-99); Mean Platelet Vol. 11.4 fl (6.2-12.0); Monocyte# 0.51 X10^3/uL; Monocyte% 7.5 % (0-10); Neutrophil # 4.17 X10^3/uL (2.7-7.7); Neutrophil % 61.6 % (47-70); Platelet Count 200 K/mm3 (150-450); RBC Distribution Width SD 43.3 fl (35.1-43.9); Red Blood Count 4.59 M/mm3 (4.2-5.4); White Blood Count 6.8 K/mm3 (4.4-11.0)
[2017-12-14 06:22] LABS: POSITIVE COUNT NO; POSITIVE DIFFERENTIAL NO; POSITIVE MORPHOLOGY NO
[2017-12-14 06:37] LABS: Anion Gap 5 (5-15); BUN 7 mg/dL (7-18); BUN/Creat Ratio 9.2 RATIO (10-20); Chloride 108 mmol/L (98-107); Creatinine, Serum 0.76 mg/dL (0.55-1.02); EST Glomerular Filtration Rate 77 mL/min (>60); Est Glom Filt Rate - Afr Amer 93 mL/min (>60); Glucose 118 mg/dL (74-106); Potassium 3.6 mmol/L (3.5-5.1); Sodium Level 139 mmol/L (136-145)
--- NOTE | 2017-12-14 08:01 | PCM.PROGNOTE ---
Patient Problems: Active and Suspected Problems Acute ischemic stroke (Acute) Subjective: Chief complaint: Follow-up after admission for probable acute stroke, hypertensive emergency and abdominal pain. MRI brain revealed no evidence of acute stroke. Patient seen and examined. No acute events overnight. This morning, she complained of vague lower abdominal pain and persistent nausea. She has no more numbness or tingling. Denied focal arm or leg weakness. Her vital signs are stable. - Physical Exam General: Alert, Oriented x3, Cooperative, - HEENT: Atraumatic, PERRLA, EOMI, Normocephalic Oral: Moist Mucosa, No Gingival or Mucosal Lesions/ Ulcerations Neck: Supple, No JVD, Negative Carotid Bruits, Trachea Midline, Thyroid Normal Size and Texture Lungs: Clear to auscultation, No rhonchi, No wheeze, No rales, Diminished Cardiovascular: Regular rate, Regular Rhythm, Normal S1, Normal S2, PMI Normal Abdomen: Bowel Sounds Present, Soft, Non Tender, Non-Distended, No Hepato-splenomegaly Extremities: No clubbing, No cyanosis, No edema Skin: No rashes, No breakdown Lymphatic: No Cervical, Supraclavicular, or Inguinal Adenopathy Neurological: Cranial nerves II-XII grossly intact, Motor Exam 5/5 strength throughout Psych/Mental Status: Normal Affect, Appropriate, Alert and oriented to time, place, person, mood and affect Vital Signs Temp Pulse Resp BP Pulse Ox 98.3 F 76 18 162/93 H 91 12/14/17 03:45 12/14/17 06:57 12/14/17 03:45 12/14/17 03:45 12/14/17 07:59 Oxygen Delivery Method Room Air Weight: 147 lb 11.355 oz Body Mass Index (BMI) 26.6 Intake and Output for Last 24 Hours 12/12/17 12/13/17 12/14/17 23:59 23:59 23:59 Intake Total 936 / 936 4147 / 4147 746 / 746 Balance 936 / 936 4147 / 4147 746 / 746 Laboratory Tests Past 24 Hrs 12/14/17 12/14/17 05:30 05:30 WBC 6.8 RBC 4.59 Hgb 13.0 Hct 39.4 MCV 85.8 MCH 28.3 MCHC 33.0 RDW 14.0 RDW Differential 43.3 Plt Count 200 MPV 11.4 Immature Gran % (Auto) 0.100 Neut % (Auto) 61.6 Lymph % (Auto) 30.0 [place] % (Auto) 7.5 Eos % (Auto) 0.4 Baso % (Auto) 0.4 Absolute Neuts (auto) 4.2 Absolute Lymphs (auto) 2.04 Total Counted Not Reportable Sodium 139 Potassium 3.6 Chloride 108 H Carbon Dioxide 26.0 Anion Gap 5 BUN 7 Creatinine 0.76 Estim Creat Clear Calc 34.30 Est GFR (MDRD) Af Amer 93 Est GFR (MDRD) Non-Af 77 BUN/Creatinine Ratio 9.2 L Glucose 118 H Calcium 9.0 Clinical Impression(s) from Imaging Studies Brain CT 12/12/17 09:14 IMPRESSION: Possible subtle area of acute ischemia in the posterior right frontal lobe. Otherwise, chronic conclusions changes of the brain. If there is high clinical suspicion for acute stroke, recommend MRI of the brain Electronically Signed: Phil Eason DO at 10:41 EDT Tel , Service support , Hip X-Ray 12/12/17 12:30 IMPRESSION: Osteopenia, otherwise, Normal x-ray examination left hip. Electronically Signed: Shannen Perez MD at 17:08 EDT Tel , Service support , Abdomen/Pelvis CT 12/13/17 08:01 IMPRESSION: No evidence of acute intra-abdominal or intrapelvic abnormality. Sigmoid surgical changes. Uterine Leiomyoma. Electronically Signed: Akanksha Anderson MD at 8:59 EDT Tel , Service support , Brain MRI 12/13/17 08:37 IMPRESSION: No acute intracranial abnormality. No acute intracranial abnormality Electronically Signed: Akanksha Anderson MD at 10:52 EDT Tel , Service support , Head MRA 12/13/17 08:37 IMPRESSION: Unremarkable MRA of the head Electronically Signed: Akanksha Anderson MD at 11:35 EDT Tel , Service support , Neck MRA 12/13/17 09:09 IMPRESSION: Normal bilateral cervical carotid and vertebral arteries. Electronically Signed: Akanksha Anderson MD at 12:43 EDT Tel , Service support , Medical Necessity - Tobacco Use Smoking Status: Former smoker Assessment/Plan All Active Problems Acute ischemic stroke (Acute) This is an 82 years old female patient presented to the emergency department because of paresthesias, headache and she was found to have possible acute ischemic infarct of the posterior right frontal lobe and she is being admitted for evaluation. #1 paresthesia/headache/possible acute ischemic stroke of the right frontal lobe: MRI performed and revealed no evidence of acute stroke. MRA of the head and neck showed no evidence of hemodynamic significant vascular disease or stenosis. 2D echocardiogram revealed ejection fraction 65%, other minor findings reviewed. She is on aspirin and statins. Blood pressure slightly elevated likely because of the abdominal pain and nausea, other vital signs are stable. Repeat CBC and BMP today were unremarkable. #2 hypertensive emergency: Blood pressure under better control. She is on metoprolol only. #3 left hip pain: Likely because of muscle strain. X-ray of the left hip showed no acute fractures. Plan for pain control with Tylenol and OxyIR. #4 left lower quadrant abdominal pain/persistent nausea: CT scan abdomen and pelvis without contrast revealed no evidence of acute intra-abdominal pathology, no diverticulitis. She still symptomatic with abdominal pain and nausea but slightly improved. Plan: We will check her LFT and lipase. #5 hypertension: Blood pressure under better control, continue metoprolol. #6 hypothyroidism: Continue levothyroxine. #7 fibromyalgia: Continue Flexeril, Neurontin, OxyIR as needed for pain #8 mitral valve prolapse: Echocardiogram reviewed as above, revealed mitral valve prolapse which is stable.. #9 DVT prophylaxis: Subcu Lovenox. This note was generated with [employer] software. It may contain incorrect words, spelling, and punctuation that were not noted in checking the note before signing.
--- NOTE | 2017-12-14 08:06 | PN_ITS ---
Patient Problems: Active and Suspected Problems Acute ischemic stroke (Acute) Subjective: Chief complaint: Follow-up after admission for probable acute stroke, hypertensive emergency and abdominal pain. MRI brain revealed no evidence of acute stroke. Patient seen and examined. No acute events overnight. This morning, she complained of vague lower abdominal pain and persistent nausea. She has no more numbness or tingling. Denied focal arm or leg weakness. Her vital signs are stable. - Physical Exam General: Alert, Oriented x3, Cooperative, - HEENT: Atraumatic, PERRLA, EOMI, Normocephalic Oral: Moist Mucosa, No Gingival or Mucosal Lesions/ Ulcerations Neck: Supple, No JVD, Negative Carotid Bruits, Trachea Midline, Thyroid Normal Size and Texture Lungs: Clear to auscultation, No rhonchi, No wheeze, No rales, Diminished Cardiovascular: Regular rate, Regular Rhythm, Normal S1, Normal S2, PMI Normal Abdomen: Bowel Sounds Present, Soft, Non Tender, Non-Distended, No Hepato- splenomegaly Extremities: No clubbing, No cyanosis, No edema Skin: No rashes, No breakdown Lymphatic: No Cervical, Supraclavicular, or Inguinal Adenopathy Neurological: Cranial nerves II-XII grossly intact, Motor Exam 5/5 strength throughout Psych/Mental Status: Normal Affect, Appropriate, Alert and oriented to time, place, person, mood and affect Vital Signs Temp Pulse Resp BP Pulse Ox 98.3 F 76 18 162/93 H 91 12/14/17 03:45 12/14/17 06:57 12/14/17 03:45 12/14/17 03:45 12/14/17 07:59 Oxygen Delivery Method Room Air Weight: 147 lb 11.355 oz Body Mass Index (BMI) 26.6 Intake and Output for Last 24 Hours 12/12/17 12/13/17 12/14/17 23:59 23:59 23:59 Intake Total 936 / 936 4147 / 4147 746 / 746 Balance 936 / 936 4147 / 4147 746 / 746 Laboratory Tests Past 24 Hrs 12/14/17 12/14/17 05:30 05:30 WBC 6.8 RBC 4.59 Hgb 13.0 Hct 39.4 MCV 85.8 MCH 28.3 MCHC 33.0 RDW 14.0 RDW Differential 43.3 Plt Count 200 MPV 11.4 Immature Gran % (Auto) 0.100 Neut % (Auto) 61.6 Lymph % (Auto) 30.0 [place] % (Auto) 7.5 Eos % (Auto) 0.4 Baso % (Auto) 0.4 Absolute Neuts (auto) 4.2 Absolute Lymphs (auto) 2.04 Total Counted Not Reportable Sodium 139 Potassium 3.6 Chloride 108 H Carbon Dioxide 26.0 Anion Gap 5 BUN 7 Creatinine 0.76 Estim Creat Clear Calc 34.30 Est GFR (MDRD) Af Amer 93 Est GFR (MDRD) Non-Af 77 BUN/Creatinine Ratio 9.2 L Glucose 118 H Calcium 9.0 Clinical Impression(s) from Imaging Studies Brain CT 12/12/17 09:14 IMPRESSION: Possible subtle area of acute ischemia in the posterior right frontal lobe. Otherwise, chronic conclusions changes of the brain. If there is high clinical suspicion for acute stroke, recommend MRI of the brain Electronically Signed: Phil Eason DO at 10:41 EDT Tel , Service support , Hip X-Ray 12/12/17 12:30 IMPRESSION: Osteopenia, otherwise, Normal x-ray examination left hip. Electronically Signed: Shannen Perez MD at 17:08 EDT Tel , Service support , Abdomen/Pelvis CT 12/13/17 08:01 IMPRESSION: No evidence of acute intra-abdominal or intrapelvic abnormality. Sigmoid surgical changes. Uterine Leiomyoma. Electronically Signed: Akanksha Anderson MD at 8:59 EDT Tel , Service support , Brain MRI 12/13/17 08:37 IMPRESSION: No acute intracranial abnormality. No acute intracranial abnormality Electronically Signed: Akanksha Anderson MD at 10:52 EDT Tel , Service support , Head MRA 12/13/17 08:37 IMPRESSION: Unremarkable MRA of the head Electronically Signed: Akanksha Anderson MD at 11:35 EDT Tel , Service support , Neck MRA 12/13/17 09:09 IMPRESSION: Normal bilateral cervical carotid and vertebral arteries. Electronically Signed: Akanksha Anderson MD at 12:43 EDT Tel , Service support , Medical Necessity - Tobacco Use Smoking Status: Former smoker Assessment/Plan All Active Problems Acute ischemic stroke (Acute) This is an 82 years old female patient presented to the emergency department because of paresthesias, headache and she was found to have possible acute ischemic infarct of the posterior right frontal lobe and she is being admitted for evaluation. #1 paresthesia/headache/possible acute ischemic stroke of the right frontal lobe : MRI performed and revealed no evidence of acute stroke. MRA of the head and neck showed no evidence of hemodynamic significant vascular disease or stenosis. 2D echocardiogram revealed ejection fraction 65%, other minor findings reviewed. She is on aspirin and statins. Blood pressure slightly elevated likely because of the abdominal pain and nausea, other vital signs are stable. Repeat CBC and BMP today were unremarkable. #2 hypertensive emergency: Blood pressure under better control. She is on metoprolol only. #3 left hip pain: Likely because of muscle strain. X-ray of the left hip showed no acute fractures. Plan for pain control with Tylenol and OxyIR. #4 left lower quadrant abdominal pain/persistent nausea: CT scan abdomen and pelvis without contrast revealed no evidence of acute intra-abdominal pathology , no diverticulitis. She still symptomatic with abdominal pain and nausea but slightly improved. Plan: We will check her LFT and lipase. #5 hypertension: Blood pressure under better control, continue metoprolol. #6 hypothyroidism: Continue levothyroxine. #7 fibromyalgia: Continue Flexeril, Neurontin, OxyIR as needed for pain #8 mitral valve prolapse: Echocardiogram reviewed as above, revealed mitral valve prolapse which is stable.. #9 DVT prophylaxis: Subcu Lovenox. This note was generated with [employer] software. It may contain incorrect words, spelling, and punctuation that were not noted in checking the note before signing.
[2017-12-14 08:25] LABS: AST(SGOT) 22 U/L (15-37); Alanine Aminotransfer ALT/SGPT 22 U/L (13-56); Albumin, Serum 3.7 g/dL (3.2-5.0); Alkaline Phosphatase 73 U/L (45-117); Bilirubin, Direct 0.12 mg/dL (0.00-0.30); Globulin 3.6 g/dL (2.2-4.2); Lipase 122 U/L (73-393); Protein, Total 7.3 g/dL (6.4-8.2)
[2017-12-14] MEDS: Enoxaparin 30 MG/0.3 ML Syringe SC (10:03)
[2017-12-14] MEDS: Famotidine 20 MG Tablet 40 MG PO (10:04)
[2017-12-14] MEDS: Magnesium Oxide 400 MG Tablet PO (10:04)
[2017-12-14] MEDS: Atorvastatin Calcium 80 MG Tablet PO (10:04)
[2017-12-14] MEDS: Aspirin 81 MG TAB.CHEW PO (10:04)
[2017-12-14] MEDS: Metoprolol(XL)Succ 50 MG Tablet PO (10:04)
[2017-12-14] MEDS: Gabapentin 100 MG Capsule PO (10:04)
[2017-12-14] MEDS: HYDROcodone Bitartrate/Apap 5/325 Tablet PO ×2 (15:44→22:03)
[2017-12-14] MEDS: Fluticasone 0.05% 1 SPRAY NASAL.SRY NASAL (21:59)
[2017-12-14] MEDS: diazePAM 5 MG Tablet 10 MG PO (23:35)
[2017-12-15 03:01] VITALS: PULSE 81
[2017-12-15 03:45] VITALS: BP 156/89; PULSE 82; RESP 16; TEMP 37.2; O2SAT 94
[2017-12-15] MEDS: HYDROcodone Bitartrate/Apap 5/325 Tablet PO (04:04)
[2017-12-15] MEDS: Acetaminophen 325 MG Tablet 650 MG PO (06:09)
[2017-12-15] MEDS: Levothyroxine 25 MCG TABLET PO (06:10)
[2017-12-15 06:44] VITALS: PULSE 76
[2017-12-15 07:30] VITALS: O2SAT 93
--- NOTE | 2017-12-15 08:03 | DCINST_ITS ---
- Discharge Diagnoses Current Active Problems: Current Active and Chronic Problems Acute ischemic stroke (Acute) Fibromyalgia (Chronic) Hypothyroidism (Chronic) Hypertension (Chronic) Mitral valve prolapse (Chronic) You will use the following diet at home:: Cardiac Your food should be the consistency of: Regular Discharge Activity: Return to Normal Activity, May not drive while taking narcotic pain medications. Weight Bearing Status: Weight bearing as tolerated Call your doctor if you observe: Fever of 101 or Higher, Shortness of breath, Dizziness, Fainting spells, Chest pain, Increased palpitations (irregular heartbeat), Uncontrolled pain Allergies/Adverse Reactions: Allergies pentazocine lactate [From [employer]] Adverse Reaction (Verified 12/12/17 09:05) FELT VERY DISCONNECTED Medications to take at Discharge Cyclobenzaprine [Flexeril] 10 mg PO QHS PRN PRN 05/27/15 Diazepam [Valium] 10 mg PO QHS PRN 05/27/15 Ergocalciferol [Vitamin D] 50,000 unit PO Q7D 05/27/15 Levothyroxine [Synthroid] 25 mcg PO DAILY 05/27/15 Magnesium 250 mg PO DAILY 05/27/15 Methylphenidate HCl [Ritalin] 10 mg PO DAILY 05/27/15 Metoprolol(XL)Succ [Toprol Xl (Beta Aidee)] 50 mg PO DAILY 05/27/15 Oxycodone HCl/Acetaminophen [Percocet 5-325] 1 tablet PO 5X/DAY 05/27/15 Plant Stanol Tita [Cholest Off Plus] 900 mg PO DAILY 05/27/15 Pnv95/Iron Fum/Folic Acid [ Caplet] 1 each PO DAILY 05/27/15 Fluticasone 0.05% [Flonase Nasal [place]] 1 spray NASAL DAILY 12/12/17 Tretinoin/Emollient Base [Tretinoin 0.05% Emollient Crm] 40 gm TP QHS 12/12/17 Ondansetron HCl [Zofran] 8 mg PO Q8H PRN PRN #20 tab 12/15/17 The following prescriptions were given: Ondansetron HCl [Zofran] 8 mg PO Q8H PRN PRN #20 tab PRN Reason: Nausea/Vomiting Primary Care Physician: Ana Palmer MD [Primary Care Provider] - Please follow up with your Primary Care Physician in: 2 weeks. Test Results: Test results from this visit will be discussed in further detail at your follow- up appointment, if applicable.
[2017-12-15 08:09] VITALS: PULSE 70
[2017-12-15] MEDS: Famotidine 20 MG Tablet 40 MG PO (08:09)
[2017-12-15] MEDS: Aspirin 81 MG TAB.CHEW PO (08:09)
[2017-12-15] MEDS: Magnesium Oxide 400 MG Tablet PO (08:09)
[2017-12-15] MEDS: Metoprolol(XL)Succ 50 MG Tablet PO (08:09)
[2017-12-15] MEDS: Atorvastatin Calcium 80 MG Tablet PO (08:09)
[2017-12-15] MEDS: Enoxaparin 30 MG/0.3 ML Syringe SC (08:11)
[2017-12-15] MEDS: Gabapentin 100 MG Capsule PO (08:11)
[2017-12-15 09:30] VITALS: BP 154/84; PULSE 84; RESP 18; TEMP 37.3; O2SAT 93
--- NOTE | 2017-12-15 13:11 | PCM.DC.SUM ---
Discharge Date and Diagnosis Date of Admission: 12/12/17 Date of Discharge: 12/15/17 - Primary Discharge Diagnosis #1 paresthesias/headache, acute stroke ruled out. #2 hypertensive urgency. #3 left hip pain/strain. #4 left lower quadrant abdominal pain/probable muscle strain or spasm. - Secondary Discharge Diagnosis Chronic Problems Fibromyalgia (Chronic) Hypothyroidism (Chronic) Hypertension (Chronic) Mitral valve prolapse (Chronic) Hospital Course and Treatment Imaging Results: Clinical Impression(s) from Imaging Studies Brain CT 12/12/17 09:14 IMPRESSION: Possible subtle area of acute ischemia in the posterior right frontal lobe. Otherwise, chronic conclusions changes of the brain. If there is high clinical suspicion for acute stroke, recommend MRI of the brain Electronically Signed: Phil Eason DO at 10:41 EDT Tel , Service support , Hip X-Ray 12/12/17 12:30 IMPRESSION: Osteopenia, otherwise, Normal x-ray examination left hip. Electronically Signed: Shannen Perez MD at 17:08 EDT Tel , Service support , Abdomen/Pelvis CT 12/13/17 08:01 IMPRESSION: No evidence of acute intra-abdominal or intrapelvic abnormality. Sigmoid surgical changes. Uterine Leiomyoma. Electronically Signed: Akanksha Anderson MD at 8:59 EDT Tel , Service support , Brain MRI 12/13/17 08:37 IMPRESSION: No acute intracranial abnormality. No acute intracranial abnormality Electronically Signed: Akanksha Anderson MD at 10:52 EDT Tel , Service support , Head MRA 12/13/17 08:37 IMPRESSION: Unremarkable MRA of the head Electronically Signed: Akanksha Anderson MD at 11:35 EDT Tel , Service support , Neck MRA 12/13/17 09:09 IMPRESSION: Normal bilateral cervical carotid and vertebral arteries. Electronically Signed: Akanksha Anderson MD at 12:43 EDT Tel , Service support , Dr. Corrales, neurology. Procedures: 2-D Echocardiogram, EKG Summary of Care Provided: Patient seen and examined on the day of discharge and appeared to be stable to be discharged home. She feels better but still complaining of mild left hip pain as well as left lower quadrant pain. She has no more headache or paresthesia. Her vital signs are stable. - Physical Exam General: Alert, Oriented x3, Cooperative, No apparent distress. HEENT: Atraumatic, PERRLA, EOMI. Neck: Supple, No JVD, Negative Carotid Bruits, Trachea Midline, Thyroid Normal. Lungs: Clear to auscultation, Normal air movement, No rhonchi, No wheeze, No rales. Cardiovascular: Regular rate, Regular Rhythm, Normal S1, Normal S2, PMI Normal. Abdomen: Bowel Sounds Present, Soft, Non Tender, Non-Distended, No Hepato-splenomegaly. Extremities: No clubbing, No cyanosis, No edema Skin: No rashes, No breakdown Neurological: Neuro grossly intact Vital Signs are stable. Hospital course: The patient is a 82 year old F initially admitted for anesthesia and headache with concern of acute stroke. Initial CT scan brain without contrast revealed possible septal area of acute ischemia in the right frontal lobe. Upon arrival to ER, her blood pressure was 200/92 which is consistent with hypertensive emergency based on elevated blood pressure more than 180 systolic and evidence of endorgan damage which is the possible acute stroke on the CAT scan. Secondary postadmission, MRI brain done and revealed no evidence of acute infarction or hemorrhage. MRA of the head and neck showed no evidence of hemodynamically significant vascular disease or stenosis. 2D echocardiogram showed ejection fraction of 65%. She was treated with aspirin and statins. Neurology consulted and stated that no evidence of acute stroke. Acute stroke ruled out. Her diagnosis of hypertensive emergency changed to hypertensive urgency because no evidence of end organ damage. Patient complains also of left hip pain and left lower quadrant pain after she was pushing a heavy cart at [facility]. X-ray of the left hip revealed no acute fractures or dislocations. Few days before this admission, patient was started on ciprofloxacin and Flagyl for presumed diverticulitis. Patient continued to complain of left lower quadrant abdominal pain with nausea for which CT scan abdomen and pelvis without contrast performed and revealed no evidence of acute intra-abdominal pathology, no diverticulitis. Her left lower quadrant abdominal pain attributed to possible muscle strain or spasm. His blood pressure improved. She remained afebrile throughout admission. Routine blood work was unremarkable. Patient has been taking Percocet for long time for chronic pain and fibromyalgia. Some of her symptoms could be due to Percocet withdrawal because she did not receive any Pepcid this admission as it is not available in our pharmacy. Patient discharged home in a stable medical condition, discharged on Zofran as needed for nausea and vomiting, continued on her chronic home medication without any changes including Percocet, recommended to keep close monitoring of her blood pressure and follow-up with PCP in 2 week. Discharge Activity: Return to Normal Activity, May not drive while taking narcotic pain medications. Weight Bearing Status: Weight bearing as tolerated Call your doctor if you observe: Fever of 101 or Higher, Shortness of breath, Dizziness, Fainting spells, Chest pain, Increased palpitations (irregular heartbeat), Uncontrolled pain Home Medications: Medications to take at Discharge Cyclobenzaprine [Flexeril] 10 mg PO QHS PRN PRN 05/27/15 Diazepam [Valium] 10 mg PO QHS PRN 05/27/15 Ergocalciferol [Vitamin D] 50,000 unit PO Q7D 05/27/15 Levothyroxine [Synthroid] 25 mcg PO DAILY 05/27/15 Magnesium 250 mg PO DAILY 05/27/15 Methylphenidate HCl [Ritalin] 10 mg PO DAILY 05/27/15 Metoprolol(XL)Succ [Toprol Xl (Beta Aidee)] 50 mg PO DAILY 05/27/15 Oxycodone HCl/Acetaminophen [Percocet 5-325] 1 tablet PO 5X/DAY 05/27/15 Plant Stanol Tita [Cholest Off Plus] 900 mg PO DAILY 05/27/15 Pnv95/Iron Fum/Folic Acid [ Caplet] 1 each PO DAILY 05/27/15 Fluticasone 0.05% [Flonase Nasal [place]] 1 spray NASAL DAILY 12/12/17 Tretinoin/Emollient Base [Tretinoin 0.05% Emollient Crm] 40 gm TP QHS 12/12/17 Ondansetron HCl [Zofran] 8 mg PO Q8H PRN PRN #20 tab 12/15/17 Following Prescrptions Were Given to Patient: Ondansetron HCl [Zofran] 8 mg PO Q8H PRN PRN #20 tab PRN Reason: Nausea/Vomiting Primary Care Physician: Ana Palmer MD [Primary Care Provider] - Please follow up with your Primary Care Physician in: 2 weeks. Disposition: Home Minutes spent on discharge:: 32 Patient Condition:: Stable Medical Necessity - Tobacco Use Smoking Status: Former smoker Meaningful Use Info Meaningful Use Diagnoses (Choose all that apply): None applicable Code Visit Inpatient E&M: 55313 Disch Hosp
--- NOTE | 2017-12-15 13:18 | DS.PCM_ITS ---
Discharge Date and Diagnosis Date of Admission: 12/12/17 Date of Discharge: 12/15/17 - Primary Discharge Diagnosis #1 paresthesias/headache, acute stroke ruled out. #2 hypertensive urgency. #3 left hip pain/strain. #4 left lower quadrant abdominal pain/probable muscle strain or spasm. - Secondary Discharge Diagnosis Chronic Problems Fibromyalgia (Chronic) Hypothyroidism (Chronic) Hypertension (Chronic) Mitral valve prolapse (Chronic) Hospital Course and Treatment Imaging Results: Clinical Impression(s) from Imaging Studies Brain CT 12/12/17 09:14 IMPRESSION: Possible subtle area of acute ischemia in the posterior right frontal lobe. Otherwise, chronic conclusions changes of the brain. If there is high clinical suspicion for acute stroke, recommend MRI of the brain Electronically Signed: Phil Eason DO at 10:41 EDT Tel , Service support , Hip X-Ray 12/12/17 12:30 IMPRESSION: Osteopenia, otherwise, Normal x-ray examination left hip. Electronically Signed: Shannen Perez MD at 17:08 EDT Tel , Service support , Abdomen/Pelvis CT 12/13/17 08:01 IMPRESSION: No evidence of acute intra-abdominal or intrapelvic abnormality. Sigmoid surgical changes. Uterine Leiomyoma. Electronically Signed: Akanksha Anderson MD at 8:59 EDT Tel , Service support , Brain MRI 12/13/17 08:37 IMPRESSION: No acute intracranial abnormality. No acute intracranial abnormality Electronically Signed: Akanksha Anderson MD at 10:52 EDT Tel , Service support , Head MRA 12/13/17 08:37 IMPRESSION: Unremarkable MRA of the head Electronically Signed: Akanksha Anderson MD at 11:35 EDT Tel , Service support , Neck MRA 12/13/17 09:09 IMPRESSION: Normal bilateral cervical carotid and vertebral arteries. Electronically Signed: Akanksha Anderson MD at 12:43 EDT Tel , Service support , Dr. Corrales, neurology. Procedures: 2-D Echocardiogram, EKG Summary of Care Provided: Patient seen and examined on the day of discharge and appeared to be stable to be discharged home. She feels better but still complaining of mild left hip pain as well as left lower quadrant pain. She has no more headache or paresthesia. Her vital signs are stable. - Physical Exam General: Alert, Oriented x3, Cooperative, No apparent distress. HEENT: Atraumatic, PERRLA, EOMI. Neck: Supple, No JVD, Negative Carotid Bruits, Trachea Midline, Thyroid Normal. Lungs: Clear to auscultation, Normal air movement, No rhonchi, No wheeze, No rales. Cardiovascular: Regular rate, Regular Rhythm, Normal S1, Normal S2, PMI Normal. Abdomen: Bowel Sounds Present, Soft, Non Tender, Non-Distended, No Hepato- splenomegaly. Extremities: No clubbing, No cyanosis, No edema Skin: No rashes, No breakdown Neurological: Neuro grossly intact Vital Signs are stable. Hospital course: The patient is a 82 year old F initially admitted for anesthesia and headache with concern of acute stroke. Initial CT scan brain without contrast revealed possible septal area of acute ischemia in the right frontal lobe. Upon arrival to ER, her blood pressure was 200/92 which is consistent with hypertensive emergency based on elevated blood pressure more than 180 systolic and evidence of endorgan damage which is the possible acute stroke on the CAT scan. Secondary postadmission, MRI brain done and revealed no evidence of acute infarction or hemorrhage. MRA of the head and neck showed no evidence of hemodynamically significant vascular disease or stenosis. 2D echocardiogram showed ejection fraction of 65%. She was treated with aspirin and statins. Neurology consulted and stated that no evidence of acute stroke. Acute stroke ruled out. Her diagnosis of hypertensive emergency changed to hypertensive urgency because no evidence of end organ damage. Patient complains also of left hip pain and left lower quadrant pain after she was pushing a heavy cart at [facility]. X-ray of the left hip revealed no acute fractures or dislocations. Few days before this admission, patient was started on ciprofloxacin and Flagyl for presumed diverticulitis. Patient continued to complain of left lower quadrant abdominal pain with nausea for which CT scan abdomen and pelvis without contrast performed and revealed no evidence of acute intra-abdominal pathology, no diverticulitis. Her left lower quadrant abdominal pain attributed to possible muscle strain or spasm. His blood pressure improved. She remained afebrile throughout admission. Routine blood work was unremarkable. Patient has been taking Percocet for long time for chronic pain and fibromyalgia. Some of her symptoms could be due to Percocet withdrawal because she did not receive any Pepcid this admission as it is not available in our pharmacy. Patient discharged home in a stable medical condition, discharged on Zofran as needed for nausea and vomiting, continued on her chronic home medication without any changes including Percocet, recommended to keep close monitoring of her blood pressure and follow-up with PCP in 2 week. Discharge Activity: Return to Normal Activity, May not drive while taking narcotic pain medications. Weight Bearing Status: Weight bearing as tolerated Call your doctor if you observe: Fever of 101 or Higher, Shortness of breath, Dizziness, Fainting spells, Chest pain, Increased palpitations (irregular heartbeat), Uncontrolled pain Home Medications: Medications to take at Discharge Cyclobenzaprine [Flexeril] 10 mg PO QHS PRN PRN 05/27/15 Diazepam [Valium] 10 mg PO QHS PRN 05/27/15 Ergocalciferol [Vitamin D] 50,000 unit PO Q7D 05/27/15 Levothyroxine [Synthroid] 25 mcg PO DAILY 05/27/15 Magnesium 250 mg PO DAILY 05/27/15 Methylphenidate HCl [Ritalin] 10 mg PO DAILY 05/27/15 Metoprolol(XL)Succ [Toprol Xl (Beta Aidee)] 50 mg PO DAILY 05/27/15 Oxycodone HCl/Acetaminophen [Percocet 5-325] 1 tablet PO 5X/DAY 05/27/15 Plant Stanol Tita [Cholest Off Plus] 900 mg PO DAILY 05/27/15 Pnv95/Iron Fum/Folic Acid [ Caplet] 1 each PO DAILY 05/27/15 Fluticasone 0.05% [Flonase Nasal [place]] 1 spray NASAL DAILY 12/12/17 Tretinoin/Emollient Base [Tretinoin 0.05% Emollient Crm] 40 gm TP QHS 12/12/17 Ondansetron HCl [Zofran] 8 mg PO Q8H PRN PRN #20 tab 12/15/17 Following Prescrptions Were Given to Patient: Ondansetron HCl [Zofran] 8 mg PO Q8H PRN PRN #20 tab PRN Reason: Nausea/Vomiting Primary Care Physician: Ana Palmer MD [Primary Care Provider] - Please follow up with your Primary Care Physician in: 2 weeks. Disposition: Home Minutes spent on discharge:: 32 Patient Condition:: Stable Medical Necessity - Tobacco Use Smoking Status: Former smoker Meaningful Use Info Meaningful Use Diagnoses (Choose all that apply): None applicable Code Visit Inpatient E&M: 59390 Disch Hosp
== END 2017-12-15 10:09 | disposition home health service (06) | DRG 305 ==
LOC: ED 10:49 → PCU 11:34
PROVIDERS: Internal Medicine; Admitting Provider Hospitalist; Emergency Provider Emergency Medicine; Family Provider Internal Medicine; PCP Internal Medicine; Visit Provider Hospitalist
DX: I16.0 Hypertensive urgency (principal); R20.2 Paresthesia of skin; R51 Headache; S76.012A Strain of muscle, fascia and tendon of left hip, initial encounter; S39.011A Strain of muscle, fascia and tendon of abdomen, initial encounter; X50.0XXA Overexertion from strenuous movement or load, initial encounter; Y93.89 Activity, other specified; Y92.512 Supermarket, store or market as the place of occurrence of the external cause; M62.838 Other muscle spasm; I10 Essential (primary) hypertension; I34.1 Nonrheumatic mitral (valve) prolapse; E03.9 Hypothyroidism, unspecified; M79.7 Fibromyalgia; Z79.891 Long term (current) use of opiate analgesic; Z79.899 Other long term (current) drug therapy; Z87.891 Personal history of nicotine dependence
CPT/HCPCS: 36415; 70450; 70544; 70549; 70551; 73502; 74176; 80048; 80061; 80076; 81001; 82962; 83690; 84484; 85025; 85610; 85730; 93005; 93306; 97116; 97162; 97166; 97530; 97802; 99283; A9585; J7030; A4216; J2405

== ENCOUNTER 2017-12-20 06:45 | Emergency (ER) | payer MEDICARE, BC, SELFPAY ==
[2017-12-20 06:46] VITALS: BP 194/99; PULSE 82; RESP 18; TEMP 36.7; O2SAT 96; BMI 27.5
--- NOTE | 2017-12-20 07:01 | NURSING ---
NO LW OR POA
--- NOTE | 2017-12-20 07:08 | CT_ITS ---
STUDY: CT ABDOMEN AND PELVIS WITH CONTRAST REASON FOR EXAM: Female, 82 years old. Abdominal pain. Melena. RADIATION DOSAGE (If Supplied By Facility): CTDIvol = ( 16.13 ) mGy, DLP = ( 873.79 ) mGycm TECHNIQUE: Transaxial images were obtained from the dome of the diaphragm to the symphysis pubis with oral contrast. 100mL ml of Isovue 300 contrast was administered. Sagittal and coronal images were reconstructed. Individualized dose optimization techniques were used for this CT. COMPARISON: Comparison is made with prior examination dated December 13, 2017. FINDINGS: Stable mild degree of increased markings at the lung bases suggestive of atelectasis and/or scarring. Coronary artery calcification. There is a 1.8 cm x 1.3 cm slightly ill-defined hypodense nodule in the inferior medial portion of the right lobe of the liver. Correlation with ultrasound is recommended to assess if the mass is solid or cystic. There are surgical clips in the gallbladder fossa consistent with a prior cholecystectomy. Stable mild degree of intrahepatic biliary ductal dilatation most likely secondary to prior cholecystectomy. Normal spleen. Normal pancreas. There is a small, circumscribed, smooth, low attenuation left adrenal mass, consistent with an adrenal adenoma. This measures 1.8 cm. Normal right adrenal gland. 1 cm cyst in the mid posterior aspect of the right kidney. 1.7 cm cyst in the lower pole of the right kidney. Normal left kidney. There is a small hiatal hernia. Normal small intestine. There are multiple colonic diverticula consistent with diverticulosis. The appendix is visualized and appears normal. There is scattered atherosclerotic calcification of the abdominal aorta, without a demonstrated aneurysm. Normal inferior vena cava. Normal retroperitoneum. Normal urinary bladder. Enlarged calcified fibroid uterus. Normal abdominal wall. There are diffuse degenerative changes of the visualized lumbar spine. CT/Abdomen/Pelvis WITH Contrast IMPRESSION: 1.8 cm x 1.3 cm hypoechoic dense nodule in the inferior aspect of the right lobe of the liver as described. Correlation with ultrasound is recommended. Status post cholecystectomy with mild dilatation of the intrahepatic biliary ducts. 1.8 cm hypodense nodule in the left adrenal gland suggestive of adenoma. Electronically Signed: Jared Mercedes MD at 9:27 EDT Tel [phone], Service support ,
[2017-12-20 07:36] LABS: Absolute Lymphocyte Count 1.87 X10^3/ul (0.83-4.51); Absolute Neutrophil Count 3.9 X10^3/uL (2.0-7.7); Basophil# 0.02 X10^3/uL; Basophil% 0.3 % (0-1); Eosinophil# 0.07 X10^3/uL; Eosinophils% 1.1 % (0-5); Hematocrit 40.2 % (37-47); Lymphocyte # 1.87 X10^3/ul (4.0); Lymphocyte % 29.2 % (19-41); Mean Corp Hgb Conc 32.3 g/gl (32-36); Mean Corpuscular Hgb 27.7 pg (27.0-32.0); Mean Corpuscular Volume 85.7 fL (81-99); Mean Platelet Vol. 11.2 fl (6.2-12.0); Monocyte# 0.53 X10^3/uL; Monocyte% 8.3 % (0-10); Neutrophil # 3.91 X10^3/uL (2.7-7.7); Neutrophil % 61.1 % (47-70); Platelet Count 197 K/mm3 (150-450); RBC Distribution Width SD 43.5 fl (35.1-43.9); Red Blood Count 4.69 M/mm3 (4.2-5.4); White Blood Count 6.4 K/mm3 (4.4-11.0)
[2017-12-20 07:38] LABS: POSITIVE COUNT NO; POSITIVE DIFFERENTIAL NO; POSITIVE MORPHOLOGY NO
[2017-12-20 07:44] LABS: Anion Gap 9 (5-15); BUN 13 mg/dL (7-18); BUN/Creat Ratio 17.1 RATIO (10-20); Calcium,Total 9.6 mg/dL (8.5-10.1); Chloride 107 mmol/L (98-107); Creatinine, Serum 0.76 mg/dL (0.55-1.02); EST Glomerular Filtration Rate 77 mL/min (>60); Est Glom Filt Rate - Afr Amer 93 mL/min (>60); Glucose 111 mg/dL (74-106); Potassium 3.6 mmol/L (3.5-5.1); Sodium Level 145 mmol/L (136-145)
[2017-12-20 07:46] LABS: Bacteria 0 SEEN /hpf (None Seen); Mucous, Urine 0 SEEN /hpf (<or=2+); Red Blood Cells-Urine 0 SEEN /hpf (0-5); Squamous Epithelial Cells - UA 0 SEEN /hpf (5-10); White Blood Cells 0 SEEN /hpf (0-5)
[2017-12-20] MEDS: 0.9% Normal Saline 1,000 ML 125 ML IV (07:53)
[2017-12-20 07:57] LABS: Lactic Acid 1.2 mmol/L (0.4-2.0)
[2017-12-20 08:02] LABS: Color, Urine Straw (Yellow); Glucose, Dipstick Normal (Normal); Ketone-Dipstick Negative (Negative); Leukocyte Esterase-Dipstick Negative /ul (Negative); Nitrite-Dipstick Negative (Negative); Occult Blood-Urine Negative /ul (Negative); Protein-Dipstick Negative (Negative); Specific Gravity, Urine 1.005 (1.002-1.030); Urine Bilirubin Dipstick Negative (Negative); Urine Clarity Clear (Clear); Urine Urobilinogen Normal (Normal)
--- NOTE | 2017-12-20 09:50 | ED.VISSUMM ---
- ER Visit Summary Date of Service: 12/20/17 Chief Complaint: [Abdominal pain] History of Present Illness: The patient is a 82 F [presents the emergency department complaint of abdominal pain for over a week now. Patient describes some nausea but no vomiting. Patient also states she has not had a good bowel movement in over 5 days. Patient denies any fevers at home. Patient denies urinary symptoms. Patient describes a fullness to the left side of the abdomen and the discomfort being in the left lower quadrant. Patient does have history of prior polyp of the colon that had to be resected.] Physical Examination: [HEENT-PERRLA, EOMI. Cranial nerves II through XII grossly intact. TMs clear. Mucous membranes moist. No adenopathy. Cardiovascular-regular rate and rhythm without murmur or ectopy Lungs-clear to auscultation, chest wall stable without crepitus or subcu emphysema Abdomen-normoactive bowel sounds, soft. Patient does have tenderness over the left lower quadrant with some mild guarding. There is no rebound, rigidity, or perineal signs. No masses palpated. Extremities-intact ?4, normal range of motion, normal pulses, atraumatic] Test Results: [CBC with differential obtained showed a white blood cell count of 6.4, hemoglobin 13, hematocrit 40, platelets 197. Chemistries unremarkable. Urinalysis was normal. Lactate was 1.2. CT scan of the abdomen pelvis showed a right lobe of liver hypoechoic dense nodule measuring 1.8 cm x 1.3 cm for which it was recommended that patient have a ultrasound to evaluate further. Patient also noted to have a left adrenal adenoma. Nothing else significant on CT.] Emergency Department Course and Treatment: [Patient did not want anything for pain or nausea in the emergency department. Patient was made aware of the nodule on the liver and recommended outpatient follow-up of this with ultrasound. Patient has seen Dr. Dandre Perez in the past and she is advised to follow-up with him as she may require further testing such as possibly colonoscopy to evaluate further etiology of her pain.] Treatment Plan: [Patient given a bottle of magnesium citrate for home and advised to follow-up with Dr. Perez] Disposition: [] Discharge to home in stable condition. Patient advised to return if fever, vomiting, worsening pain, or condition should worsen in any way. Impression: [Abdominal pain Constipation] This note was generated with Dragon dictation software. It may contain incorrect words, spelling, and punctuation that were not noted in review of the chart prior to signing ED Disposition - Plan for ED Patient: Chief Complaint: Abd Pain Referrals: Ana Palmer MD [Primary Care Provider] -
--- NOTE | 2017-12-20 09:53 | ED.DEP ---
ED Disposition - Plan for ED Patient: Chief Complaint: Abd Pain Instructions: ED Abdominal Pain Unkn Cause, ED Constipation Referrals: Ana Palmer MD [Primary Care Provider] - Dandre Perez MD [STAFF PHYSICIAN] - 3-5 Days
[2017-12-20] MEDS: Magnesium Citrate 300 ML PO (10:15)
[2017-12-20 10:17] VITALS: BP 162/104; PULSE 80; RESP 17; O2SAT 94
== END 2017-12-20 10:23 | disposition home or self-care (01) ==
PROVIDERS: Emergency Provider Emergency Medicine; Family Provider Internal Medicine; PCP Internal Medicine
DX: K59.00 Constipation, unspecified (principal); K76.89 Other specified diseases of liver; R10.32 Left lower quadrant pain; I10 Essential (primary) hypertension; E78.00 Pure hypercholesterolemia, unspecified; Z90.49 Acquired absence of other specified parts of digestive tract; Z79.899 Other long term (current) drug therapy
CPT/HCPCS: 74177; 80048; 81001; 83605; 85025; 96360; 96361; 99283; J7030; Q9967; A4216

== ENCOUNTER 2017-12-25 13:55 | Emergency (ER) | payer MEDICARE, BC, SELFPAY ==
[2017-12-25 13:56] VITALS: BP 156/86; PULSE 71; RESP 16; TEMP 37; O2SAT 95; BMI 26.6
--- NOTE | 2017-12-25 13:56 | CT_ITS ---
STUDY: CT ABDOMEN AND PELVIS WITH CONTRAST REASON FOR EXAM: Female, 82 years old. LLQ PAIN. Polyp removed from colon and cholecystectomy previously RADIATION DOSAGE (If Supplied By Facility): CTDIvol = ( 19.50 ) mGy, DLP = ( 817.35 ) mGycm TECHNIQUE: Transaxial images were obtained from the dome of the diaphragm to the symphysis pubis with oral contrast. 100ml ml of Isovue 300 contrast was administered. Sagittal and coronal images were reconstructed. Individualized dose optimization techniques were used for this CT. COMPARISON: None December 20, 2017. FINDINGS: There are atherosclerotic calcifications of visualized coronary arteries. The visualized portions of the heart are within normal limits. There is intrahepatic ductal dilation. There is non-visualization of the gallbladder, which may be secondary to either contraction or a prior cholecystectomy. Normal spleen. Normal pancreas. 18 mm stable poorly defined nodule of the inferior right lobe of the liver. Stable left adrenal gland nodule. Stable hypodensity of the right kidney. Normal left kidney. Focal wall thickening of the antrum of stomach. This can suggest a gastritis. Normal small intestine. Normal colon. There is non-visualization of the appendix. There are calcifications of the abdominal aorta and vascular structures. This is consistent for atherosclerotic disease. There is no abdominal aortic aneurysm. Normal inferior vena cava. Subcentimeter mesenteric lymph nodes. Normal urinary bladder. The uterus is lobulated in contour. There are multiple partially calcified masses in the uterus. This is consistent for a fibroid/ myomatous uterus. Degenerative findings of the hips. Loss of intervertebral disc height at L5-S1. Vacuum disc phenomenon at L5-S1. Normal abdominal wall. There are degenerative changes of the osseous structures. CT/Abdomen/Pelvis WITH Contrast IMPRESSION: 18 mm stable poorly defined nodule of the inferior right lobe of the liver. The etiology is indeterminate.. Gastritis. Stable left adrenal gland nodule. Stable right renal cyst Other findings as above. Electronically Signed: Guy Campbell MD at 19:07 EDT , Service support ,
--- NOTE | 2017-12-25 14:12 | ED.DCSUM_ITS ---
- ER Visit Summary Date of Service: 12/25/17 Chief Complaint: [] Left side abdominal pain for over a week worse after she drank MiraLAX this afternoon History of Present Illness: The patient is a 82 F [] has had left-sided abdominal pain on and off for a week she was seen in the emergency department recently had negative workup negative CT, she followed up today with her surgeon , after she left the office she drank MiraLAX as instructed and she had intensification of left side abdominal pain and she was sent to the hospital by Dr. Perez for evaluation she has had no vomiting no fever no cough normal urinary habits, she does report having hard stools on Wednesday or she is passing gas History of having part of her left colon resected because it was folded over the wrong way by Dr. Perez she is not really had issues other than occasional abdominal cramps, prior colonoscopy was unremarkable Physical Examination: [] She is resting comforting the bed she started to feel better now she has indication of pain to the left lower quadrant that is improved her vital signs are within normal range head neck chest unremarkable the abdomen is soft there is a vague pain to the left lower abdomen no rebound guarding organomegaly, rectal exam shows brown stool thin no fecal impaction, no areas of obvious discomfort no bleeding, upper lower extremities neurologic exam unremarkable Test Results: [] Emergency Department Course and Treatment: [] dr Perez did call and he has asked for comprehensive labs CT with IV or oral contrast with her to wait for the IV contrast to make it distally : IV fluids screening labs, pain management and will discuss the case with Dr. Perez once the studies are available The lab studies that are available currently are unremarkable including a white count, the patient's CT abdomen is pending as we are delaying the normal timing to make sure the contrast gets to the left lower quadrant per Dr. Perez's instructions, at this time her care is transferred to the afternoon physicians who will contact Dr. Perez when all of her test results and CAT scan reports are back to review and determine appropriate plan and disposition Treatment Plan: [] Disposition: [] Pending discussion with Dr. Perez when results are available Impression: [] This note was generated with Formabilioation software. It may contain incorrect words, spelling, and punctuation that were not noted in review of the chart prior to signing ED Disposition - Plan for ED Patient: Chief Complaint: Abd Pain Referrals: Ana Palmer MD [Primary Care Provider] -
[2017-12-25] MEDS: 0.9% Normal Saline 1,000 ML 125 ML IV (14:32)
[2017-12-25] MEDS: morphine 8 MG/ML Syringe IV (14:33)
[2017-12-25] MEDS: Ondansetron 4 MG/2 ML Vial IV ×2 (14:33→19:19)
[2017-12-25 14:53] LABS: Absolute Lymphocyte Count 2.27 X10^3/ul (0.83-4.51); Absolute Neutrophil Count 3.2 X10^3/uL (2.0-7.7); Basophil# 0.04 X10^3/uL; Basophil% 0.6 % (0-1); Eosinophil# 0.09 X10^3/uL; Eosinophils% 1.5 % (0-5); Hematocrit 39.1 % (37-47); Hemoglobin 13.2 g/dl (12.0-15.0); Lymphocyte # 2.27 X10^3/ul (4.0); Lymphocyte % 36.8 % (19-41); Mean Corp Hgb Conc 33.8 g/gl (32-36); Mean Corpuscular Hgb 28.6 pg (27.0-32.0); Mean Corpuscular Volume 84.8 fL (81-99); Mean Platelet Vol. 11.4 fl (6.2-12.0); Monocyte% 9.7 % (0-10); Neutrophil # 3.16 X10^3/uL (2.7-7.7); Neutrophil % 51.2 % (47-70); Platelet Count 217 K/mm3 (150-450); RBC Distribution Width CV 13.6 % (11.6-14.6); RBC Distribution Width SD 41.7 fl (35.1-43.9); Red Blood Count 4.61 M/mm3 (4.2-5.4); White Blood Count 6.2 K/mm3 (4.4-11.0)
[2017-12-25 14:55] LABS: POSITIVE COUNT NO; POSITIVE DIFFERENTIAL NO; POSITIVE MORPHOLOGY NO
[2017-12-25 15:12] LABS: AST(SGOT) 17 U/L (15-37); Alanine Aminotransfer ALT/SGPT 18 U/L (13-56); Albumin, Serum 3.9 g/dL (3.2-5.0); Alkaline Phosphatase 72 U/L (45-117); Anion Gap 6 (5-15); BUN 14 mg/dL (7-18); BUN/Creat Ratio 17.5 RATIO (10-20); Bilirubin, Direct 0.19 mg/dL (0.00-0.30); Calcium,Total 9.3 mg/dL (8.5-10.1); Chloride 107 mmol/L (98-107); EST Glomerular Filtration Rate 73 mL/min (>60); Est Glom Filt Rate - Afr Amer 88 mL/min (>60); Estimated Creatinine Clearance 42.88 ml/min; Glucose 100 mg/dL (74-106); Lipase 139 U/L (73-393); Potassium 3.8 mmol/L (3.5-5.1); Protein, Total 7.9 g/dL (6.4-8.2); Sodium Level 140 mmol/L (136-145)
[2017-12-25 15:45] LABS: Bacteria 0 SEEN /hpf (None Seen); Mucous, Urine 0 SEEN /hpf (<or=2+); Red Blood Cells-Urine 0 SEEN /hpf (0-5); Squamous Epithelial Cells - UA 0 SEEN /hpf (5-10); White Blood Cells 0 SEEN /hpf (0-5)
[2017-12-25 16:07] VITALS: PULSE 76; RESP 18; O2SAT 97
[2017-12-25 16:13] LABS: Color, Urine Yellow (Yellow); Glucose, Dipstick Normal (Normal); Ketone-Dipstick Negative (Negative); Leukocyte Esterase-Dipstick Negative /ul (Negative); Nitrite-Dipstick Negative (Negative); Occult Blood-Urine Negative /ul (Negative); Protein-Dipstick Negative (Negative); Urine Bilirubin Dipstick Negative (Negative); Urine Clarity Clear (Clear); Urine Urobilinogen Normal (Normal)
[2017-12-25 18:28] VITALS: PULSE 77; RESP 18; O2SAT 94
[2017-12-25] MEDS: Morphine 4 MG/ML Syringe IV (19:19)
[2017-12-25 19:20] VITALS: BP 153/79; PULSE 69; RESP 14; O2SAT 95
--- NOTE | 2017-12-25 19:23 | ED.DEP ---
ED Disposition - Plan for ED Patient: Disposition: Home or Assisted Living Chief Complaint: Abd Pain Instructions: ED Abdominal Pain Unkn Cause Referrals: Dandre Perez MD [STAFF PHYSICIAN] - 1-2 Days if not improving
[2017-12-25 20:06] VITALS: BP 150/79; PULSE 71; RESP 15; O2SAT 93
--- NOTE | 2017-12-25 20:06 | ED.RN ---
this rn educated pt and pt on discharge instructions. pt to take her already prescribed medication, as prescribed, at home. pt to return to ed for any new or worsening sx. pt to call jg on wednesday and set up follow up appt. pt and verbalize understanding and deny any further questions. pt dresses self and is assisted by wheelchair t o family vehicle. iv d/c and covered with 2x2 gauze dressing and paper tape, minimal bleeding noted.
== END 2017-12-25 20:11 | disposition home or self-care (01) ==
PROVIDERS: Emergency Provider Emergency Medicine; Family Provider Internal Medicine; PCP Internal Medicine
DX: R10.32 Left lower quadrant pain (principal)
CPT/HCPCS: 74177; 80053; 81001; 82248; 83690; 85025; 96361; 96374; 96375; 96376; 99284; J7040; J2405

== ENCOUNTER → 2017-12-27 13:43 | Outpatient (CLI) | payer MEDICARE, BC, SELFPAY ==
--- NOTE | 2017-12-27 13:47 | RAD_ITS ---
STUDY: X-RAY - THORACIC SPINE REASON FOR EXAM: Female, 82 years old. RLQ RADIATING AROUND BACK INTO HIP PAIN X 2 WKS, NKI TECHNIQUE: 2 view(s) of the thoracic spine were obtained. COMPARISON: None. FINDINGS: Normal kyphosis of the thoracic spine. There is multi-level endplate spondylosis. There is multi-level degenerative disc disease with multilevel disc space narrowing. The soft tissue structures are unremarkable. RAD/Thoracic Spine 3 Views IMPRESSION: No demonstrated fractures. Multilevel degenerative changes. Electronically Signed: Akanksha Anderson MD at 9:30 EDT Tel , Service support ,
--- NOTE | 2017-12-27 13:47 | RAD_ITS ---
STUDY: X-RAY - LUMBAR SPINE REASON FOR EXAM: Female, 82 years old. RLQ RADIATING AROUND BACK INTO HIP PAIN X 2 WKS, NKI TECHNIQUE: 3 view(s) of the lumbar spine were obtained. COMPARISON: None FINDINGS: Normal lumbar lordosis. There is multilevel endplate spondylosis of the lumbar vertebrae. There is multi-level degenerative disc disease with multi-level disc space narrowing. The soft tissue structures are unremarkable. RAD/Lumbar Spine 2 or 3 Views IMPRESSION: Degenerative changes of the spine. Electronically Signed: Akanksha Anderson MD at 10:19 EDT Tel , Service support ,
== END ==
PROVIDERS: Family Provider Internal Medicine; PCP Internal Medicine; Visit Provider Surgery
DX: M47.895 Other spondylosis, thoracolumbar region (principal); M51.35 Other intervertebral disc degeneration, thoracolumbar region; M48.05 Spinal stenosis, thoracolumbar region; R10.9 Unspecified abdominal pain
CPT/HCPCS: 72072; 72100

== ENCOUNTER 2017-12-30 05:50 | Day surgery (SDC) | payer MEDICARE, BC, SELFPAY ==
[2017-12-30] VITALS (7 sets, daily range): BP systolic 107–156; BP diastolic 67–86; PULSE 75–96; RESP 16–18; TEMP 36.6–36.8; O2SAT 93–98; BMI 25.7
--- NOTE | 2017-12-30 07:00 | COLBX_PTH ---
PATIENT: MOSES CRAIN LOC: EN U#:[id number] AGE/SX: 82/F ROOM: RE12/30/[address]: Dr. Dandre Perez MD : [id number] BED: DIS: 12/30/2017 SPEC #: [id number] RECD: 12/30/17 14:51 STATUS: PRADEEP PATO #: [id number] DON: 12/30/17 07:[address]: Dandre Perez DEPT: SURGICAL PATHOLOGY RECD BY: Rick Slade ENTERED: 12/31/17 11:44 SP TYPE: COLON BX OTHR DR: Dr. Ana Palmer MD Tissues: A - Cecum, NOS B - COLON BIOPSY Procedures: Surgery Specimen Level IV HEADER OPERATION: Colonoscopy (MAC) PRE-OP DIAGNOSIS: Abdominal pain TISSUE SUBMITTED: A ? Biopsy polyp cecum, B ? Random colon biopsy MICROSCOPIC DIAGNOSIS A. Polyp cecum, biopsy: Tubular adenoma. B. Colon, random biopsy: Fragments of colonic mucosa, no pathologic diagnosis. LUTHER:saskia 01/03/18 MICROSCOPIC DESCRIPTION Slides are reviewed. GROSS DESCRIPTION A - Received in fixative is one container labeled with the patient's name and designated polyp cecum. The specimen consists of one irregular fragment of light pope soft tissue that measures 0.3 x 0.3 x 0.1 cm. The specimen is totally submitted in one cassette. B - Received in fixative is one container labeled with the patient's name and designated random colon biopsy. The specimen consists of multiple irregular fragments of light pope soft tissue that in aggregate measure 1.5 x 0.5 x 0.1 cm. The specimen is totally submitted in one cassette. / LUTHER:saskia 12/31/17 TC:1 CPT: 37552 x2
--- NOTE | 2017-12-30 07:30 | PCM.OPRPT ---
Problem List (1) Left lower quadrant abdominal pain of unknown etiology Status: Acute Report of Operation Date of Procedure: 12/30/17 Pre-Operative Diagnosis: R10.3 to left lower quadrant abdominal pain Post-Operative Diagnosis: Same Surgery/Procedure Performed:: 12345 colonoscopy with biopsy of cecal polyp and random colon biopsies Type of Anesthesia:: MAC Anesthesiologist: Gordo Menard Description of Procedure: Patient was brought into the endoscopy suite placed in the left lateral decubitus position. She was given graded anesthesia. The scope was inserted into the rectum and directed through the anastomosis, descending colon, transverse colon, ascending colon, to the cecum without difficulty. She was given 1 amp of glucagon. Operative findings: 1. Cecum: Small polyp was identified and was ablated with biopsy forceps completely she was noted to have a normal ileocecal valve. 2. Ascending colon: Normal appearance no mass lesions. 3. Transverse colon: Normal appearance no mass lesions. 4. Descending colon: Normal appearance no mass lesions. 5. Anastomosis normal appearance widely patent no signs of lesions. #6 rectum: Normal appearance no mass lesions retroflexion did show a few internal hemorrhoids the scope was withdrawn and digital rectal exam was performed showing no masses within the anus. I cannot palpate any abnormalities within the pelvis through the rectal exam either. I did do random colon biopsies throughout the colon the mucosa all look normal here there is no signs of any inflammation or abnormalities. Her etiology of her discomfort in her abdomen still remains a mystery. I am going to start her on some Bentyl to see if this is helpful. - Admit VTE Documentation VTE Present on Admission: No VTE Mechan Device Prophylaxis: None VTE Pharm Prophylaxis ordered?: No Reason prophylaxis not ordered:: Treatment Not Indicated
== END 2017-12-30 08:46 | disposition home or self-care (01) ==
LOC: EN 05:50 → AC 05:51
PROVIDERS: Family Provider Internal Medicine; PCP Internal Medicine; Visit Provider Surgery
PROC: 0DJD8ZZ Inspection of Lower Intestinal Tract, Via Natural or Artificial Opening Endoscopic (ICD-10-PCS; CPT 45378; principal; 2017-12-30 06:55)
DX: D12.0 Benign neoplasm of cecum (principal); K64.8 Other hemorrhoids; K58.1 Irritable bowel syndrome with constipation; R10.32 Left lower quadrant pain; R20.0 Anesthesia of skin; R20.2 Paresthesia of skin; I34.1 Nonrheumatic mitral (valve) prolapse; I10 Essential (primary) hypertension; E78.00 Pure hypercholesterolemia, unspecified; F41.9 Anxiety disorder, unspecified; M79.7 Fibromyalgia; M19.90 Unspecified osteoarthritis, unspecified site; E03.9 Hypothyroidism, unspecified; Z90.49 Acquired absence of other specified parts of digestive tract; Z86.73 Personal history of transient ischemic attack (TIA), and cerebral infarction without residual deficits; Z79.899 Other long term (current) drug therapy
CPT/HCPCS: 45380; 88305; J7120; J1610

== ENCOUNTER → 2018-01-19 12:43 | Outpatient (CLI) | payer MEDICARE, BC, SELFPAY ==
--- NOTE | 2018-01-19 12:45 | US_ITS ---
STUDY: ULTRASOUND OF THE FEMALE PELVIS - COMPLETE REASON FOR EXAM: Female, 82 years old. Left pelvic pain. LMP: Postmenopausal. TECHNIQUE: Transabdominal and Transvaginal TECHNICAL QUALITY: Adequate. COMPARISON: CT abdomen and pelvis December 25, 2017. FINDINGS: The uterus is anteverted and is in a midline position. The uterus measures 6.9 x 4.6 x 3.0 cm. The endometrium measures 2.3 mm in thickness, and is hyperechoic. There is no demonstrated endometrial mass. There are heterogeneous, partially calcified myometrial masses consistent with fibroids, one of the largest measuring 2.4 x 2.3 x 2.3 cm along the left margin of the posterior body of the uterus. A moderately defined hyperechoic 6 x 4 x 6 mm structure that may also be a fibroid seen in the subendometrial posterior left body of the uterus. I.U.D. - The patient does not have an I.U.D. The right ovary is non-visualized. is no visualized right adnexal mass or complex lesion. There is normal arterial and normal venous vascularity. The left ovary is visualized. The left ovary measures 1.4 x 1.2 x 0.8 cm. There is no left ovarian cyst or ovarian mass. There is no visualized left adnexal mass or complex lesion. There is normal arterial and normal venous vascularity. There is no fluid in the cul-de-sac. The pre void volume of the bladder was 314 ml. Polycystic ovary disease: No. US/Transvaginal Non- IMPRESSION: 1. Fibroid uterus, as described. 2. Endometrial thickness is normal. 3. Age-appropriate left ovarian atrophy. The right ovary is not identified. Electronically Signed: Brian Justin MD at 19:11 EDT , Service support ,
--- NOTE | 2018-01-19 12:45 | US_ITS ---
STUDY: ULTRASOUND OF THE FEMALE PELVIS - COMPLETE REASON FOR EXAM: Female, 82 years old. Left pelvic pain. LMP: Postmenopausal. TECHNIQUE: Transabdominal and Transvaginal TECHNICAL QUALITY: Adequate. COMPARISON: CT abdomen and pelvis December 25, 2017. FINDINGS: The uterus is anteverted and is in a midline position. The uterus measures 6.9 x 4.6 x 3.0 cm. The endometrium measures 2.3 mm in thickness, and is hyperechoic. There is no demonstrated endometrial mass. There are heterogeneous, partially calcified myometrial masses consistent with fibroids, one of the largest measuring 2.4 x 2.3 x 2.3 cm along the left margin of the posterior body of the uterus. A moderately defined hyperechoic 6 x 4 x 6 mm structure that may also be a fibroid seen in the subendometrial posterior left body of the uterus. I.U.D. - The patient does not have an I.U.D. The right ovary is non-visualized. is no visualized right adnexal mass or complex lesion. There is normal arterial and normal venous vascularity. The left ovary is visualized. The left ovary measures 1.4 x 1.2 x 0.8 cm. There is no left ovarian cyst or ovarian mass. There is no visualized left adnexal mass or complex lesion. There is normal arterial and normal venous vascularity. There is no fluid in the cul-de-sac. The pre void volume of the bladder was 314 ml. Polycystic ovary disease: No. US/Pelvic (Non ) IMPRESSION: 1. Fibroid uterus, as described. 2. Endometrial thickness is normal. 3. Age-appropriate left ovarian atrophy. The right ovary is not identified. Electronically Signed: Brian Justin MD at 19:11 EDT , Service support ,
== END ==
PROVIDERS: Family Provider Internal Medicine; PCP Internal Medicine; Visit Provider Nurse Practitioner Women's Health
DX: D25.9 Leiomyoma of uterus, unspecified (principal); R10.2 Pelvic and perineal pain
CPT/HCPCS: 76830; 76856

== ENCOUNTER 2022-04-09 12:00 | Emergency (ER) | payer MEDICARE, BC, SELFPAY ==
[2022-04-09 12:01] VITALS: BP 140/75; PULSE 80; RESP 18; TEMP 36.7; O2SAT 96; BMI 26.2
--- NOTE | 2022-04-09 12:34 | EDS_ITS ---
HPI HPI - GI History of Present Illness Chief Complaint: Nausea/Vomiting/Diarrhea Narrative Narrative: 86-year-old female presenting with nausea, vomiting, diarrhea. This started last evening. Last evening she started Macrobid for a UTI. This was prescribed by her primary care physician. They did not test her urine. She states that she told him that she had had symptoms of UTI and was started on this. Patient states after taking the medication about 8:00 she has had nausea, vomiting, diarrhea over the course of the evening. No fever or chills. Nobody else is sick in the household. He does describe diffuse abdominal pain. No black or bloody stools. [facility] Medical History Abdominal pain Acute ischemic stroke Anxiety Arthritis Constipation Deafness in left ear Fatigue Fibromyalgia Hemorrhoids Hypertension Hypothyroidism Mitral valve prolapse Nausea Sleep apnea Home Medications cyclobenzaprine 10 mg tablet 10 mg PO QHS PRN PRN Spasms 05/27/15 [History Last Taken Unknown] diazepam 5 mg tablet 10 mg PO QHS PRN Anxiety 05/27/15 [History Last Taken Unknown] ergocalciferol (vitamin D2) 1,250 mcg (50,000 unit) capsule 50,000 unit PO Q7D 05/27/15 [History Last Taken Unknown] levothyroxine 25 mcg tablet 25 mcg PO DAILY thyroid 05/27/15 [History Last Taken 12/30/17 0530] magnesium 250 mg tablet 250 mg PO DAILY supplement 05/27/15 [History Last Taken Unknown] methylphenidate HCl 10 mg tablet 10 mg PO DAILY PRN Anxiety 05/27/15 [History Last Taken Unknown] metoprolol succinate 50 mg tablet,extended release 24 hr 50 mg PO DAILY BP 05/27/15 [History Last Taken 12/30/17 0530] oxycodone-acetaminophen 5 mg-325 mg tablet 1 tab PO 5X/DAY pain 05/27/15 [Histor y Last Taken 06/03/15 06:00] plant stanol mary 450 mg capsule 900 mg PO DAILY cholesterol 05/27/15 [History Last Taken Unknown] fluticasone propionate 50 mcg/actuation nasal spray,suspension 1 spray NASAL DAILY PRN Nasal Congestion 12/12/17 [History Last Taken Unknown] wptkhfhbmgen-nqmdmcfm-dzby fumarate 7.5 mg-folic acid 400 mcg tablet 1 ea PO DAILY 12/28/17 [History Last Taken Unknown] dicyclomine 10 mg capsule 10 mg PO TIDAC #40 caps 12/30/17 [Rx Last Taken Unknown] cephalexin 500 mg capsule 500 mg PO Q12 #14 caps 04/09/22 [Rx Last Taken Unknown] ondansetron 4 mg disintegrating tablet 4 mg PO Q8H PRN nausea and vomiting #14 tabs 04/09/22 [Rx Last Taken Unknown] Allergy/AdvReac Type Severity Reaction Status Date / Time pregabalin [From Lyrica] Allergy Unknown Unknown Verified 04/09/22 12:01 neomycin Allergy HEARING Verified 04/09/22 12:01 LOSS pentazocine lactate AdvReac FELT VERY Verified 04/09/22 12:01 [From Diane] DISCONNECTED Family History Mother No problems noted. Surgical History Cataract extraction status of right eye H/O colonoscopy History of lumpectomy of both breasts History of partial colectomy Hx of cholecystectomy Hx of vein stripping left toe surgery S/P tympanoplasty Social History Smoking Status: Never smoker second hand exposure: No alcohol intake: never substance use type: does not use caffeine: No what type of physical activity do you participate in: none frequency: does not exercise seatbelt use: always do you feel safe at home: Yes additional social history: - Moi ROS ROS ED Constitutional Constitutional ED: Denies chills or fever(s) ENT ENT ED: Denies sore throat Cardiovascular Cardiovascular: Denies chest pain or palpitations Respiratory/Chest Respiratory/Chest: Denies cough or dyspnea Gastrointestinal Gastrointestinal: Reports abdominal pain, nausea and vomiting Genitourinary Genitourinary ED: Reports dysuria and urinary frequency Musculoskeletal Musculoskeletal: Denies arthralgias or back pain Integumentary Denies abscess Neurologic Neurologic: Denies headache(s) or paresthesias Psychiatric Psychiatric: Denies anxiety or depression EXAM Physical Exam Const Vital Signs: 04/09/22 12:01 04/09/22 15:16 Temperature 98.1 F Temperature Source Temporal Pulse Rate 80 85 Respiratory Rate 18 16 Blood Pressure 140/75 H 127/70 H Blood Pressure Mean 96 89 Pulse Ox 96 94 Oxygen Delivery Method Room Air Room Air Positive well nourished General Appearance ED: NAD HEENT Reports moist mucous membranes normocephalic and atraumatic Eyes PERRL and EOMs intact bilaterally Neck no lymphadenopathy Resp normal respiratory effort and clear to auscultation bilaterally Auscultation: Negative for rales, rhonchi or wheezes Cardio regular rate and regular rhythm GI GI Narrative: Diffuse Palpation: soft and tender other Back/Spine no CVA tenderness Neuro CN's II-XII intact bilaterally Sensorium / Orientation: alert, oriented to person, oriented to place and oriented to time Motor Exam: strength 5/5 throughout Psych mental status grossly normal Skin no wounds MDM MDM MDM Narrative Medical decision making narrative: Patient presented with nausea, vomiting, diarrhea. She is also had urinary symptoms. Patient given IV fluids, Zofran, morphine. On reevaluation she is feeling very much improved. Her CBC and CMP are unremarkable. CT of the abdomen pelvis does not show any acute abdominal process. Urinalysis consistent with infection. She will be treated with Keflex with first dose in the ER. She is given a prescription for Zofran as well. 1. Nausea/vomiting 2. Diarrhea 3. UTI Lab Data Labs: Laboratory Results - last 24 hr 04/09/22 04/09/22 04/09/22 12:45 12:45 13:00 WBC 10.7 RBC 4.98 Hgb 14.1 Hct 43.1 MCV 86.5 MCH 28.3 MCHC 32.7 RDW Std Deviation 42.6 RDW Coeff of Milagros 13.5 Plt Count 207 MPV 11.0 Immature Gran % (Auto) 0.400 Neut % (Auto) 82.0 H Lymph % (Auto) 9.9 L [place] % (Auto) 7.2 Eos % (Auto) 0.4 Baso % (Auto) 0.1 Absolute Neuts (auto) 8.7 H Absolute Lymphs (auto) 1.05 Nucleated RBC % 0 Sodium 139 Potassium 3.3 L Chloride 108 H Carbon Dioxide 24.0 Anion Gap 7 BUN 24 H Creatinine 0.82 Estim Creat Clear Calc 38.95 Est GFR (MDRD) Af Amer 85 Est GFR (MDRD) Non-Af 71 BUN/Creatinine Ratio 29.4 H Glucose 140 H Calcium 10.2 H Total Bilirubin 1.30 H AST 19 ALT 28 Alkaline Phosphatase 95 Total Protein 8.0 Albumin 4.2 Globulin 3.8 Albumin/Globulin Ratio 1.1 Lipase 84 Urine Color Yellow Urine Clarity Sl. Cloudy Urine pH 7.0 Ur Specific [place] 1.015 Urine Protein 30 H Urine Glucose (UA) Normal Urine Ketones 50 H Urine Occult Blood 10 H Urine Nitrite Positive H Urine Bilirubin 3 H Urine Urobilinogen Normal Ur Leukocyte Esterase 500 H Urine RBC 5-10 SEEN Urine WBC 25-50 SEEN Ur Squamous Epith Cells 0-5 SEEN Urine Bacteria 3+ Urine Mucus 0 SEEN Radiography Diagnostic Testing: Clinical Impression(s) from Imaging Studies Abdomen/Pelvis CT 04/09/22 13:55 IMPRESSION: Status post cholecystectomy. Stable intrahepatic ductal dilatation. Fluid is seen within the left hemicolon. Electronically Signed: Jared Mercedes MD at 14:32 EST Reading Location ID and State: [facility] / [place] , Service support , Discharge Plan Triage Chief Complaint: Nausea/Vomiting/Diarrhea ED Provider: Leo Younger Dx/Rx/DC Orders Instructions: ED Cystitis Female Adult, ED Vomiting and Diarrhea ... Prescriptions: New cephalexin 500 mg capsule 500 mg PO Q12 Qty: 14 0RF ondansetron 4 mg tablet,disintegrating 4 mg PO Q8H PRN (Reason: nausea and vomiting) Qty: 14 0RF No Action cyclobenzaprine 10 MG tablet 10 mg PO QHS PRN PRN (Reason: Spasms) methylphenidate HCl 10 MG tablet 10 mg PO DAILY PRN (Reason: Anxiety) levothyroxine 25 MCG tablet 25 mcg PO DAILY oxycodone-acetaminophen 1 TABLET tablet 1 tab PO 5X/DAY diazepam 5 MG tablet 10 mg PO QHS PRN (Reason: Anxiety) metoprolol succinate 50 MG tablet 50 mg PO DAILY magnesium 250 MG tablet 250 mg PO DAILY ergocalciferol (vitamin D2) 50,000 UNIT capsule 50,000 unit PO Q7D Label Comments: TAKES EVERY WEDNESDAY plant stanol mary 450 MG capsule 900 mg PO DAILY fluticasone propionate 1 SPRAY spray,suspension 1 spray NASAL DAILY PRN (Reason: Nasal Congestion) idrqvfbo-atk-abiw fum-folic ac 1 EACH tablet 1 ea PO DAILY dicyclomine 10 MG capsule 10 mg PO TIDAC Qty: 40 2RF Primary Care Provider: Ana Palmer Referrals: Ana Palmer MD [Primary Care Provider] - Disposition Disposition: Home, Self Care
[2022-04-09 12:50] LABS: Absolute Lymphocyte Count 1.05 X10^3/uL (0.83-4.51); Absolute Neutrophil Count 8.7 X10^3/uL (2.0-7.7); Basophil# 0.01 X10^3/uL; Basophil% 0.1 % (0-1); Eosinophil# 0.04 X10^3/uL; Eosinophils% 0.4 % (0-5); Hematocrit 43.1 % (37-47); Hemoglobin 14.1 g/dL (12.0-15.0); Lymphocyte # 1.05 X10^3/ul (0.83-4.51); Lymphocyte % 9.9 % (19-41); Mean Corp Hgb Conc 32.7 g/dL (32-36); Mean Corpuscular Hgb 28.3 pg (27.0-32.0); Mean Corpuscular Volume 86.5 fL (81-99); Monocyte# 0.77 X10^3/uL; Monocyte% 7.2 % (0-10); NRBC Flagged by Analyzer 0 % (0-5); Neutrophil # 8.74 X10^3/uL (2.7-7.7); Platelet Count 207 K/mm3 (150-450); RBC Distribution Width CV 13.5 % (11.6-14.6); RBC Distribution Width SD 42.6 fl (35.1-43.9); Red Blood Count 4.98 M/mm3 (4.2-5.4); White Blood Count 10.7 K/mm3 (4.4-11.0)
[2022-04-09] MEDS: Ondansetron 4 MG/2 ML Vial IV (12:52)
[2022-04-09] MEDS: 0.9% Normal Saline 1,000 ML 1000 ML IV (12:52)
[2022-04-09] MEDS: Morphine 4 MG/ML Syringe IV (12:52)
[2022-04-09 13:05] LABS: Mucous, Urine 0 SEEN /hpf (<or=2+)
[2022-04-09 13:08] LABS: ALB/GLOB Ratio 1.1 RATIO (0.9-2.4); AST(SGOT) 19 U/L (15-37); Alanine Aminotransfer ALT/SGPT 28 U/L (13-56); Albumin, Serum 4.2 g/dL (3.2-5.0); Alkaline Phosphatase 95 U/L (45-117); Anion Gap 7 (5-15); BUN 24 mg/dL (7-18); BUN/Creat Ratio 29.4 RATIO (10-20); Calcium,Total 10.2 mg/dL (8.5-10.1); Chloride 108 mmol/L (98-107); Creatinine, Serum 0.82 mg/dL (0.55-1.02); EST Glomerular Filtration Rate 71 mL/min (>60); Est Glom Filt Rate - Afr Amer 85 mL/min (>60); Estimated Creatinine Clearance 38.95 ml/min; Globulin 3.8 g/dL (2.2-4.2); Glucose 140 mg/dL (74-106); Lipase 84 U/L (73-393); Potassium 3.3 mmol/L (3.5-5.1); Sodium Level 139 mmol/L (136-145)
[2022-04-09 13:16] LABS: Color, Urine Yellow (Yellow); Glucose, Dipstick Normal (Normal); Ketone-Dipstick 50 mg/dl (Negative); Leukocyte Esterase-Dipstick 500 /ul (Negative); Nitrite-Dipstick Positive (Negative); Occult Blood-Urine 10 /ul (Negative); Protein-Dipstick 30 mg/dl (Negative); Specific Gravity, Urine 1.015 (1.002-1.030); Urine Bilirubin Dipstick 3 mg/dL (Negative); Urine Clarity Sl. Cloudy (Clear); Urine Urobilinogen Normal (Normal)
[2022-04-09 13:22] LABS: Bacteria 3+ /hpf (None Seen); Red Blood Cells-Urine 5-10 SEEN /hpf (0-5); Squamous Epithelial Cells - UA 0-5 SEEN /hpf (5-10); White Blood Cells 25-50 SEEN /hpf (0-5)
--- NOTE | 2022-04-09 13:55 | CT_ITS ---
STUDY: CT ABDOMEN AND PELVIS WITH CONTRAST REASON FOR EXAM: Female, 86 years old. Abdominal pain RADIATION DOSAGE (If Supplied By Facility): CTDIvol = ( 9.68 ) mGy, DLP = ( 398.28 ) mGycm TECHNIQUE: Transaxial images were obtained from the dome of the diaphragm to the symphysis pubis without oral contrast. IV 100mL Isovue-300 was administered. Sagittal and coronal images were reconstructed. Individualized dose optimization techniques were used for this CT. COMPARISON: Comparison is made with prior study 12/25/2017. FINDINGS: Stable increased markings at the lung bases suggestive of scarring. Coronary artery calcification. There is decreased attenuation of the liver consistent with steatosis. Stable mild degree of intrahepatic biliary ductal dilatation. There are surgical clips in the gallbladder fossa consistent with a prior cholecystectomy. Normal spleen. Normal pancreas. Normal bilateral adrenal glands. Stable 2.3 cm cyst in the lower pole of the right kidney. Normal left kidney. Normal visualized stomach. Normal small intestine. Surgical anastomosis seen in the rectum. Fluid-filled left hemicolon. There is non-visualization of the appendix. There is scattered atherosclerotic calcification of the abdominal aorta, without a demonstrated aneurysm. Normal inferior vena cava. Normal retroperitoneum. Normal urinary bladder. Calcified uterine fibroids. Normal abdominal wall. There are mild degenerative changes of the visualized lumbar spine. CT/Abdomen/Pelvis W IV Cont ONLY IMPRESSION: Status post cholecystectomy. Stable intrahepatic ductal dilatation. Fluid is seen within the left hemicolon. Electronically Signed: Jared Mercedes MD at 14:32 EST ,
[2022-04-09 15:16] VITALS: BP 127/70; PULSE 85; RESP 16; O2SAT 94
[2022-04-09] MEDS: Cephalexin 250 MG Capsule 500 MG PO (15:26)
== END 2022-04-09 16:05 | disposition home or self-care (01) ==
PROVIDERS: Emergency Provider Student in an Organized Health Care Education/Training Program; PCP Internal Medicine; Visit Provider Student in an Organized Health Care Education/Training Program
DX: R11.2 Nausea with vomiting, unspecified (principal); R19.7 Diarrhea, unspecified; N39.0 Urinary tract infection, site not specified; G47.30 Sleep apnea, unspecified
CPT/HCPCS: 74177; 80053; 81001; 83690; 85025; 87086; 96361; 96374; 96375; 99284; J7030; Q9967; A4216; J2405

== ENCOUNTER 2022-05-23 21:54 | Emergency (ER) | payer MEDICARE, BC, SELFPAY ==
[2022-05-23 21:54] VITALS: BP 143/87; PULSE 91; RESP 16; TEMP 36.6; O2SAT 92; BMI 25.2
--- NOTE | 2022-05-23 22:24 | EX.ED.DYSGE1 ---
HPI History of Present Illness Chief Complaint: General Illness Informant: patient and spouse/S.O. Onset/Context/Timing Onset: Days (2-3) Context: Gradual Onset Timing: Continuous Quality: malaise, myalgias Location: all over Current Severity: Severe Maximum Severity: Severe Worsened by: nothing Relieved by: nothing Narrative Narrative: Patient started feeling poorly day before yesterday, states that due to doctors offices being closed she went to urgent care but does not know which 1, she states she tested positive for influenza. She states she has been having some urinary frequency as well and so they did a urinalysis but they were not pleased with the results. They prescribed her oseltamivir but no other prescription such as an antibiotic. She states that the urgent care provider told her that if she feels worse she should go directly to the emergency department. She states today she felt nauseated and her myalgias were worse which is why she presents here tonight. She has not vomited. Her p.o. intake of fluids has been less than normal but she has been drinking and urinating. She has had several soft but otherwise normal bowel movements without blood or melena or diarrhea. She denies any cough, shortness of breath, chest discomfort, syncope, lightheadedness, confusion. [facility] Medical History Abdominal pain Acute ischemic stroke Anxiety Arthritis Constipation Deafness in left ear Fatigue Fibromyalgia Hemorrhoids Hypertension Hypothyroidism Mitral valve prolapse Nausea Sleep apnea Home Medications cyclobenzaprine 10 mg tablet 10 mg PO QHS PRN PRN Spasms 05/27/15 [History Last Taken Unknown] diazepam 5 mg tablet 10 mg PO QHS PRN Anxiety 05/27/15 [History Last Taken Unknown] ergocalciferol (vitamin D2) 1,250 mcg (50,000 unit) capsule 50,000 unit PO Q7D 05/27/15 [History Last Taken Unknown] levothyroxine 25 mcg tablet 25 mcg PO DAILY thyroid 05/27/15 [History Last Taken 12/30/17 0530] magnesium 250 mg tablet 250 mg PO DAILY supplement 05/27/15 [History Last Taken Unknown] methylphenidate HCl 10 mg tablet 10 mg PO DAILY PRN Anxiety 05/27/15 [History Last Taken Unknown] metoprolol succinate 50 mg tablet,extended release 24 hr 50 mg PO DAILY BP 05/27/15 [History Last Taken 12/30/17 0530] oxycodone-acetaminophen 5 mg-325 mg tablet 1 tab PO 5X/DAY pain 05/27/15 [History Last Taken 06/03/15 06:00] plant stanol mary 450 mg capsule 900 mg PO DAILY cholesterol 05/27/15 [History Last Taken Unknown] fluticasone propionate 50 mcg/actuation nasal spray,suspension 1 spray NASAL DAILY PRN Nasal Congestion 12/12/17 [History Last Taken Unknown] fdkljqysfksk-khehognc-bbpy fumarate 7.5 mg-folic acid 400 mcg tablet 1 ea PO DAILY 12/28/17 [History Last Taken Unknown] dicyclomine 10 mg capsule 10 mg PO TIDAC #40 caps 12/30/17 [Rx Last Taken Unknown] cephalexin 500 mg capsule 500 mg PO Q12 #14 caps 04/09/22 [Rx Last Taken Unknown] ondansetron 4 mg disintegrating tablet 4 mg PO Q8H PRN nausea and vomiting #14 tabs 04/09/22 [Rx Last Taken Unknown] ondansetron 4 mg disintegrating tablet 8 mg PO Q8H PRN PRN Nausea #20 tabs 05/24/22 [Rx Last Taken Unknown] Allergy/AdvReac Type Severity Reaction Status Date / Time pregabalin [From Lyrica] Allergy Unknown Unknown Verified 05/23/22 22:06 neomycin Allergy HEARING Verified 05/23/22 22:06 LOSS pentazocine lactate AdvReac FELT VERY Verified 05/23/22 22:06 [From Diane] DISCONNECTED Family History Mother No problems noted. Surgical History Cataract extraction status of right eye H/O colonoscopy History of lumpectomy of both breasts History of partial colectomy Hx of cholecystectomy Hx of vein stripping left toe surgery S/P tympanoplasty Social History Smoking Status: Never smoker second hand exposure: No alcohol intake: never substance use type: does not use caffeine: No what type of physical activity do you participate in: none frequency: does not exercise seatbelt use: always do you feel safe at home: Yes additional social history: - Moi ROS ROS ED Constitutional Constitutional ED: Reports anorexia, body ache(s), fatigue, fever(s), headache(s) and malaise; Denies chills Eyes Eyes: Denies change in vision or diplopia ENT ENT ED: Reports other Details: sneezing ; Denies rhinorrhea or sore throat Cardiovascular Cardiovascular: Denies chest pain or palpitations Respiratory/Chest Respiratory/Chest: Denies cough or dyspnea Gastrointestinal Gastrointestinal: Reports nausea; Denies abdominal pain, diarrhea or vomiting Genitourinary Genitourinary ED: Reports urinary frequency; Denies dysuria or hematuria Musculoskeletal Musculoskeletal: Reports myalgias; Denies back pain or neck pain Integumentary Denies abscess or rash Neurologic Neurologic: Reports headache(s); Denies paresthesias or weakness Psychiatric Psychiatric: Denies depression or suicidal thoughts Endocrine Endocrinology: Denies polydipsia or polyphagia EXAM Physical Exam Const Vital Signs: 05/23/22 21:54 05/23/22 22:07 05/24/22 00:02 Temperature 97.9 F Temperature Source Temporal Pulse Rate 91 79 Respiratory Rate 16 18 Respiratory Effort Normal Non-Labored Respiratory Pattern Normal Blood Pressure 143/87 H Blood Pressure Mean 105 Pulse Ox 92 94 Oxygen Delivery Method Room Air Room Air 05/24/22 02:05 Temperature Temperature Source Pulse Rate 81 Respiratory Rate Respiratory Effort Respiratory Pattern Blood Pressure Blood Pressure Mean Pulse Ox 95 Oxygen Delivery Method Room Air Positive well nourished and well developed General Appearance ED: well developed and NAD HEENT Reports moist mucous membranes normocephalic and atraumatic Eyes PERRL and EOMs intact bilaterally Neck full ROM and supple Chest Wall inspection of chest normal and palpation of chest normal Resp normal respiratory effort and clear to auscultation bilaterally Cardio regular rate, regular rhythm and no murmurs Rate: Negative for tachycardic GI non-tender and non-distended Auscultation: normoactive bowel sounds Palpation: soft Back/Spine no CVA tenderness General Back: other FROM Extremity normal to inspection General Extremety ED: Negative for edema, pulses abnormal or tenderness General Extremity: Negative for edema or pulses abnormal Neuro oriented x3, CN's II-XII intact bilaterally and no sensory deficits noted Sensorium / Orientation: awake and alert Motor Exam: strength 5/5 throughout Skin no rashes or lesions noted and no wounds MDM MDM MDM Narrative Medical decision making narrative: Work-up shows mild hypokalemia, replace this orally and parenterally, however the patient had burning from the IV dose and refused to continue it so was discontinued. Her urinalysis from urgent care is not visible to me in our EMR at 1 AM when the patient is here. I had her urinate and give our own urinalysis, shows no signs of infection. I reassured her. She was able to get up to the bedside with little help from nursing although she was feeling very malaised. She states she had a bout of diarrhea here and feels poorly although she is conversive in full sentences and her vital signs are normal and she has not hypoxic. I offered admission, she states she does not feel better therefore she wants to stay. I discussed with she and that the natural course of admitting her for observation would be reevaluation, supportive care, possibly OT and PT evaluations, and if she was still too weak to go home safely, short-term rehab disposition would be an option, although she could also be discharged home. Sometimes insurance does not cover inpatient observations, which I discussed with them. seems to understand all this, and states he prefers to take her home, and states he feels he will be able to adequately care for her at home. They are on oseltamivir, no other prescriptions given from urgent care, I gave her some Zofran here which helped and she was able to drink some fluids and I am giving her prescription, she was very upset and thought that I just wanted money, I took some time to try to explain to her that that is not what we are after here, the understands and states that he will take her home. Lab Data Attestation: I reviewed the patient's lab results. Labs: Laboratory Results - last 24 hr 05/23/22 05/23/22 05/24/22 22:22 22:22 00:01 WBC 5.1 RBC 4.90 Hgb 13.7 Hct 42.1 MCV 85.9 MCH 28.0 MCHC 32.5 RDW Std Deviation 42.5 RDW Coeff of Milagros 13.6 Plt Count 175 MPV 11.1 Immature Gran % (Auto) 0.400 Neut % (Auto) 58.0 Lymph % (Auto) 27.1 [place] % (Auto) 14.1 H Eos % (Auto) 0.0 Baso % (Auto) 0.4 Absolute Neuts (auto) 2.9 Absolute Lymphs (auto) 1.37 Nucleated RBC % 0 Sodium 139 Potassium 3.2 L Chloride 110 H Carbon Dioxide 22.0 Anion Gap 7 BUN 12 Creatinine 0.66 Estim Creat Clear Calc 31.35 Est GFR (MDRD) Af Amer 109 Est GFR (MDRD) Non-Af 90 BUN/Creatinine Ratio 18.2 Glucose 127 H Calcium 9.3 Urine Color Yellow Urine Clarity Clear Urine pH 6.5 Ur Specific [place] 1.010 Urine Protein Negative Urine Glucose (UA) Normal Urine Ketones 50 H Urine Occult Blood Negative Urine Nitrite Negative Urine Bilirubin Negative Urine Urobilinogen Normal Ur Leukocyte Esterase Negative Urine RBC 0 SEEN Urine WBC 0 SEEN Ur Squamous Epith Cells 0 SEEN Urine Bacteria 0 SEEN Urine Mucus 0 SEEN Discharge Plan Triage Chief Complaint: General Illness ED Provider: Arturo Estrada Dx/Rx/DC Orders Clinical Impression: Influenza, Hypokalemia Instructions: ED Influenza (Adult) Prescriptions: New ondansetron [ondansetron] 4 MG tablet 8 mg PO Q8H PRN PRN (Reason: Nausea) Qty: 20 0RF No Action cyclobenzaprine 10 MG tablet 10 mg PO QHS PRN PRN (Reason: Spasms) methylphenidate HCl 10 MG tablet 10 mg PO DAILY PRN (Reason: Anxiety) levothyroxine 25 MCG tablet 25 mcg PO DAILY oxycodone-acetaminophen 1 TABLET tablet 1 tab PO 5X/DAY diazepam 5 MG tablet 10 mg PO QHS PRN (Reason: Anxiety) metoprolol succinate 50 MG tablet 50 mg PO DAILY magnesium 250 MG tablet 250 mg PO DAILY ergocalciferol (vitamin D2) 50,000 UNIT capsule 50,000 unit PO Q7D Label Comments: TAKES EVERY WEDNESDAY plant stanol mary 450 MG capsule 900 mg PO DAILY fluticasone propionate 1 SPRAY spray,suspension 1 spray NASAL DAILY PRN (Reason: Nasal Congestion) tqzqhwdr-uur-omev fum-folic ac 1 EACH tablet 1 ea PO DAILY dicyclomine 10 MG capsule 10 mg PO TIDAC Qty: 40 2RF cephalexin 500 mg capsule 500 mg PO Q12 Qty: 14 0RF ondansetron 4 mg tablet,disintegrating 4 mg PO Q8H PRN (Reason: nausea and vomiting) Qty: 14 0RF Primary Care Provider: Ana Palmer Referrals: Ana Palmer MD [Primary Care Provider] - 3-5 Days Activity Restrictions/Additional Instructions: Fevers with Tylenol. Encourage fluids to keep hydrated. Encourage walking even if just around the house. Return if new symptoms such as shortness of breath, chest pain, unable to keep anything down due to lots of vomiting. Use the included prescription for nausea medicine if needed. Disposition Disposition: Home, Self Care
[2022-05-23] MEDS: HYDROcodone Bitartrate/Apap 5/325 Tablet PO (22:56)
[2022-05-23] MEDS: Ondansetron 4 MG/2 ML Vial IV (22:57)
[2022-05-23 22:59] LABS: Absolute Lymphocyte Count 1.37 X10^3/uL (0.83-4.51); Absolute Neutrophil Count 2.9 X10^3/uL (2.0-7.7); Basophil# 0.02 X10^3/uL; Basophil% 0.4 % (0-1); Hematocrit 42.1 % (37-47); Hemoglobin 13.7 g/dL (12.0-15.0); Lymphocyte # 1.37 X10^3/ul (0.83-4.51); Lymphocyte % 27.1 % (19-41); Mean Corp Hgb Conc 32.5 g/dL (32-36); Mean Corpuscular Volume 85.9 fL (81-99); Mean Platelet Vol. 11.1 fl (6.2-12.0); Monocyte# 0.71 X10^3/uL; Monocyte% 14.1 % (0-10); NRBC Flagged by Analyzer 0 % (0-5); Neutrophil # 2.93 X10^3/uL (2.7-7.7); Platelet Count 175 K/mm3 (150-450); RBC Distribution Width CV 13.6 % (11.6-14.6); RBC Distribution Width SD 42.5 fl (35.1-43.9); White Blood Count 5.1 K/mm3 (4.4-11.0)
[2022-05-23 23:33] LABS: Anion Gap 7 (5-15); BUN 12 mg/dL (7-18); BUN/Creat Ratio 18.2 RATIO (10-20); Calcium,Total 9.3 mg/dL (8.5-10.1); Chloride 110 mmol/L (98-107); Creatinine, Serum 0.66 mg/dL (0.55-1.02); EST Glomerular Filtration Rate 90 mL/min (>60); Est Glom Filt Rate - Afr Amer 109 mL/min (>60); Estimated Creatinine Clearance 31.35 ml/min; Glucose 127 mg/dL (74-106); Potassium 3.2 mmol/L (3.5-5.1); Sodium Level 139 mmol/L (136-145)
[2022-05-24 00:02] VITALS: PULSE 79; RESP 18; O2SAT 94
[2022-05-24 00:11] LABS: Bacteria 0 SEEN /hpf (None Seen); Mucous, Urine 0 SEEN /hpf (<or=2+); Red Blood Cells-Urine 0 SEEN /hpf (0-5); Squamous Epithelial Cells - UA 0 SEEN /hpf (5-10); White Blood Cells 0 SEEN /hpf (0-5)
[2022-05-24 00:19] LABS: Color, Urine Yellow (Yellow); Glucose, Dipstick Normal (Normal); Ketone-Dipstick 50 mg/dl (Negative); Leukocyte Esterase-Dipstick Negative /ul (Negative); Nitrite-Dipstick Negative (Negative); Occult Blood-Urine Negative /ul (Negative); Protein-Dipstick Negative (Negative); Urine Bilirubin Dipstick Negative (Negative); Urine Clarity Clear (Clear); Urine Urobilinogen Normal (Normal); Urine pH 6.5 (5.0 - 8.0)
[2022-05-24] MEDS: Potassium Chloride 10mEq/100mL 10 MEQ/100 ML IV.SOLN. 100 MEQ IV BOLUS (00:57)
[2022-05-24] MEDS: Potassium Chloride Oral Tablet 20 MEQ PO (01:04)
[2022-05-24 01:39] VITALS: O2SAT 92
[2022-05-24 02:05] VITALS: PULSE 81; O2SAT 95
[2022-05-24 02:49] VITALS: PULSE 81; RESP 16; O2SAT 96
== END 2022-05-24 02:52 | disposition home or self-care (01) ==
PROVIDERS: Emergency Provider Emergency Medicine; PCP Internal Medicine; Visit Provider Emergency Medicine
DX: J11.1 Influenza due to unidentified influenza virus with other respiratory manifestations (principal); E87.6 Hypokalemia; G47.30 Sleep apnea, unspecified; Z86.73 Personal history of transient ischemic attack (TIA), and cerebral infarction without residual deficits
CPT/HCPCS: 80048; 81001; 85025; 96374; 99284; J7040; A4216; J2405

== ENCOUNTER 2023-01-01 11:16 | Emergency (ER) | payer MEDICARE, BC, SELFPAY ==
[2023-01-01 11:16] VITALS: BP 153/78; PULSE 70; RESP 16; TEMP 36.7; O2SAT 97; BMI 24.9
[2023-01-01 12:00] VITALS: BP 125/86; PULSE 73; RESP 21; O2SAT 93
--- NOTE | 2023-01-01 12:25 | EX.ED.DYSGE1 ---
HPI History of Present Illness Chief Complaint: Chest Pain Informant: patient and spouse/S.O. Narrative Narrative: Patient presents with chief complaint of, I just do not feel good. Patient states that she woke up several times last night. She was tired this morning. When she did wake up she went to urinate. She has had frequent urination over the last week or so. But no dysuria. No change in odor. She does not recall having a fever but she feels much better now that she has blankets on and does not feel cold or chilled anymore. She states when she woke up this morning she just did not feel well. She felt generally lightheaded and it did not matter if she was laying down or standing. No vertigo. No focal weakness. She did have some chest discomfort and some palpitations. She has had a history of this with mitral valve prolapse and PACs. Patient states that she has aching all over but that is chronic. She has fibromyalgia. She no she takes a medicine for blood pressure and oxycodone for pains. She states she is on other medicines but neither her nor her can name the medication or the indication or illness for which they are prescribed. I have reviewed the list that we have on our computer. Patient denies knowingly being around anyone who was ill recently. Her is feeling well. [facility] Medical History Abdominal pain Acute ischemic stroke Anxiety Arthritis Constipation Deafness in left ear Fatigue Fibromyalgia Hemorrhoids Hypertension Hypothyroidism Mitral valve prolapse Nausea Sleep apnea Home Medications cyclobenzaprine 10 mg tablet 10 mg PO QHS PRN PRN Spasms 05/27/15 [History Last Taken Unknown] diazepam 5 mg tablet 10 mg PO QHS PRN Anxiety 05/27/15 [History Last Taken Unknown] ergocalciferol (vitamin D2) 1,250 mcg (50,000 unit) capsule 50,000 unit PO Q7D 05/27/15 [History Last Taken Unknown] levothyroxine 25 mcg tablet 25 mcg PO DAILY thyroid 05/27/15 [History Last Taken 12/30/17 0530] magnesium 250 mg tablet 250 mg PO DAILY supplement 05/27/15 [History Last Taken Unknown] methylphenidate HCl 10 mg tablet 10 mg PO DAILY PRN Anxiety 05/27/15 [History Last Taken Unknown] metoprolol succinate 50 mg tablet,extended release 24 hr 50 mg PO DAILY BP 05/27/15 [History Last Taken 12/30/17 0530] oxycodone-acetaminophen 5 mg-325 mg tablet 1 tab PO 5X/DAY pain 05/27/15 [History Last Taken 06/03/15 06:00] plant stanol mary 450 mg capsule 900 mg PO DAILY cholesterol 05/27/15 [History Last Taken Unknown] fluticasone propionate 50 mcg/actuation nasal spray,suspension 1 spray NASAL DAILY PRN Nasal Congestion 12/12/17 [History Last Taken Unknown] nhwyyfstzkkl-xppgjuub-pfyd fumarate 7.5 mg-folic acid 400 mcg tablet 1 ea PO DAILY 12/28/17 [History Last Taken Unknown] dicyclomine 10 mg capsule 10 mg PO TIDAC #40 caps 12/30/17 [Rx Last Taken Unknown] cephalexin 500 mg capsule 500 mg PO Q12 #14 caps 04/09/22 [Rx Last Taken Unknown] ondansetron 4 mg disintegrating tablet 4 mg PO Q8H PRN nausea and vomiting #14 tabs 04/09/22 [Rx Last Taken Unknown] ondansetron 4 mg disintegrating tablet 8 mg (2 x 4 mg) PO Q8H PRN PRN Nausea #20 tabs 05/24/22 [Rx Last Taken Unknown] Allergy/AdvReac Type Severity Reaction Status Date / Time pregabalin [From Lyrica] Allergy Unknown Unknown Verified 01/01/23 11:20 neomycin Allergy HEARING Verified 01/01/23 11:20 LOSS bupropion [From Wellbutrin] AdvReac PT UNSURE Verified 01/01/23 11:20 OF REACTION ezetimibe [From Zetia] AdvReac Other Verified 01/01/23 11:20 nitrofurantoin AdvReac Diarrhea Verified 01/01/23 11:20 [From Macrobid] pentazocine lactate AdvReac FELT VERY Verified 01/01/23 11:20 [From Talwin] DISCONNECTED Family History Mother No problems noted. Surgical History Cataract extraction status of right eye H/O colonoscopy History of lumpectomy of both breasts History of partial colectomy Hx of cholecystectomy Hx of vein stripping left toe surgery S/P tympanoplasty Social History Smoking Status: Never smoker second hand exposure: No alcohol intake: never substance use type: does not use caffeine: No what type of physical activity do you participate in: none frequency: does not exercise seatbelt use: always do you feel safe at home: Yes additional social history: - Moi ROS ROS ED ROS Narrative A complete review of systems was performed and is negative except as documented in the history of present illness. Some specific details below. Constitutional: No recent fevers but she did feel chilled this morning and feels much better now on blankets. EYE: No discharge, visual complaints, or pain. She states she had some blurring of the vision last week but none since. This was not lateralizing. She had no other symptoms with it. ENT: No difficulty swallowing. No swelling. No pain. No reflux symptoms. CV: She had some palpitations and mild chest tightness. She has had this before. She has no history of coronary artery disease or stents. She has none of this now. Respiratory: No cough or trouble breathing. GI: No abdominal pain. No nausea vomiting diarrhea. No blood in stool. : She has had some frequency over the last week or so which is new. But she denies dysuria hematuria odor or change in color. Musculoskeletal: No recent trauma. No new pains but she has chronic aches all over from fibromyalgia. These are unchanged.. No swelling. Skin: No rash. Nondiaphoretic. Neuro: No focal weakness or numbness. She states she felt all over a week but this did not lateralize at all. Endocrine: She has had polyuria but no polydipsia. EXAM Physical Exam Narrative Exam Narrative: CONSTITUTIONAL: Patient is nontoxic in appearance. The patient looks comfortable. Work of breathing looks normal. HEENT: No notable trauma. Mucous membranes do still look moist. No sinus tenderness. No indication of pain with swallowing. No pallor. EYES: No conjunctival injection. No proptosis. Normal range of motion. No gross visual loss by confrontation. No injection. No discharge. NECK:No JVD. No stridor. CARDIOVASCULAR: Regular rate. Regular rhythm. No notable murmur. No JVD. On the monitor, she has a heart rate of about 75 and appears to be in a normal sinus rhythm. I do not see ectopy on the monitor although she has a history of PACs. RESPIRATORY: No respiratory distress. Breathing is unlabored. No wheezes. No rhonchi. No rales. No pain with a deep breath. No chest wall tenderness. GASTROINTESTINAL: Not distended. Bowel sounds are normal. No tenderness. No guarding. No rebound. No palpable mass. No bruit is heard. GENITOURINARY: No tenderness over the bladder. No CVA tenderness. MUSCULOSKELETAL: Atraumatic. No peripheral edema. No cord. No tenderness along the deep venous system. No asymmetry. No distended veins. NEUROLOGICAL: Patient is alert and appropriate. No focal deficit noted. SKIN: No noted rashes. No diaphoresis. PSYCHIATRIC: Patient is calm. Mood is appropriate. Const Vital Signs: 01/01/23 11:16 01/01/23 12:00 01/01/23 12:01 Temperature 98.1 F Temperature Source Temporal Pulse Rate 70 73 Respiratory Rate 16 21 H Respiratory Effort Normal Non-Labored Blood Pressure 153/78 H 125/86 H Blood Pressure Mean 103 99 Pulse Ox 97 93 Oxygen Delivery Method Room Air Room Air 01/01/23 13:07 01/01/23 14:15 01/01/23 15:01 Temperature Temperature Source Pulse Rate 74 74 73 Respiratory Rate 16 15 17 Respiratory Effort Blood Pressure 114/87 H 118/72 120/74 Blood Pressure Mean 96 87 89 Pulse Ox 95 94 93 Oxygen Delivery Method Room Air Room Air Room Air MDM MDM MDM Narrative Medical decision making narrative: Nursing staff went in to draw blood. Every time they started to draw blood the patient jumped and jerked. It is very difficult to get this. Patient did not want blood work or an IV done at this point. She was able to be convinced to at least attempt blood work. She does not want an IV. We will go with her plans. She still states she feels fine now. Patient CBC shows acute abnormalities. Patient's electrolytes look overall normal. No sign of acute kidney injury. Minimal elevation of glucose. Patient is alert performed and test are normal. No Patient's urinalysis shows no sign of infection. Patient's troponin is negative at 6. My independent interpretation the patient's chest x-ray shows a single AP view. Mild eventration of the right diaphragm but no sign of acute infiltrate or other abnormality. Final reading shows hyperinflation but lungs are clear. Patient is still feeling well. She states she wants to go home. She has PACs all the time. She does not feel as though she needs to stay in the hospital. Lab Data Labs: Laboratory Results - last 24 hr 01/01/23 01/01/23 13:45 14:11 WBC 6.2 RBC 4.95 Hgb 13.9 Hct 43.9 MCV 88.7 MCH 28.1 MCHC 31.7 L RDW Std Deviation 44.8 H RDW Coeff of Milagros 13.9 Plt Count MPV 12.1 H Immature Gran % (Auto) 0.300 Neut % (Auto) 62.9 Lymph % (Auto) 28.5 Atkinson % (Auto) 6.2 Eos % (Auto) 1.3 Baso % (Auto) 0.8 Absolute Neuts (auto) 3.9 Absolute Lymphs (auto) 1.76 Nucleated RBC % 0 Platelet Estimate ADEQUATE Sodium 141 Potassium 4.2 Chloride 111 H Carbon Dioxide 26.0 Anion Gap 4 L BUN 12 Creatinine 0.82 Estim Creat Clear Calc 38.23 Est GFR (MDRD) Af Amer 85 Est GFR (MDRD) Non-Af 71 BUN/Creatinine Ratio 14.7 Glucose 107 H Calcium 10.1 Total Bilirubin 0.90 AST 18 ALT 18 Alkaline Phosphatase 78 Troponin I High Sens 6 Total Protein 7.7 Albumin 3.8 Globulin 3.9 Albumin/Globulin Ratio 1.0 Urine Color Yellow Urine Clarity Clear Urine pH 8.0 Ur Specific [place] 1.010 Urine Protein Negative Urine Glucose (UA) Normal Urine Ketones Negative Urine Occult Blood Negative Urine Nitrite Negative Urine Bilirubin Negative Urine Urobilinogen Normal Ur Leukocyte Esterase 25 H Urine RBC 0 SEEN Urine WBC 0-5 SEEN Ur Squamous Epith Cells 0 SEEN Urine Bacteria 0 SEEN Urine Mucus 0 SEEN Radiography Diagnostic Testing: Clinical Impression(s) from Imaging Studies Chest X-Ray 01/01/23 13:15 IMPRESSION: Hyperinflation. The lungs are clear. Electronically Signed: Jared Mercedes MD at 13:27 EDT , Discharge Plan Triage Chief Complaint: Chest Pain ED Provider: Irwin Issa Dx/Rx/DC Orders Clinical Impression: Episode of generalized weakness, Polyuria, Atrial contractions, premature Instructions: ED About Arrhythmias Prescriptions: No Action cyclobenzaprine 10 MG tablet 10 mg PO QHS PRN PRN (Reason: Spasms) methylphenidate HCl 10 MG tablet 10 mg PO DAILY PRN (Reason: Anxiety) levothyroxine 25 MCG tablet 25 mcg PO DAILY oxycodone-acetaminophen 1 TABLET tablet 1 tab PO 5X/DAY diazepam 5 MG tablet 10 mg PO QHS PRN (Reason: Anxiety) metoprolol succinate 50 MG tablet 50 mg PO DAILY magnesium 250 MG tablet 250 mg PO DAILY ergocalciferol (vitamin D2) 50,000 UNIT capsule 50,000 unit PO Q7D Patient Comments: TAKES EVERY WEDNESDAY plant stanol mary 450 MG capsule 900 mg PO DAILY fluticasone propionate 1 SPRAY spray,suspension 1 spray NASAL DAILY PRN (Reason: Nasal Congestion) kkytpmun-ypk-jumx fum-folic ac 1 EACH tablet 1 ea PO DAILY dicyclomine 10 MG capsule 10 mg PO TIDAC Qty: 40 2RF cephalexin 500 mg capsule 500 mg PO Q12 Qty: 14 0RF ondansetron 4 mg tablet,disintegrating 4 mg PO Q8H PRN (Reason: nausea and vomiting) Qty: 14 0RF ondansetron [ondansetron] 4 MG tablet 8 mg PO Q8H PRN PRN (Reason: Nausea) Qty: 20 0RF Primary Care Provider: Ana Palmer Referrals: Ana Palmer MD [Primary Care Provider] - 3-5 Days if not improving Disposition Disposition: Home, Self Care
--- NOTE | 2023-01-01 12:27 | EKG12_ITS ---
Test Reason : CP Blood Pressure : / mmHG Vent. Rate : 071 BPM Atrial Rate : 071 BPM P-R Int : 184 ms QRS Dur : 068 ms QT Int : 384 ms P-R-T Axes : 038 -09 037 degrees QTc Int : 417 ms Normal sinus rhythm Normal ECG Confirmed by JUANA CHRISTENSEN, JEANNE ([id number]), industrial editor MAINE ESTEVEZ ([id number]) on 01/04/2023 8:40:35 AM Referred By: ES/PL Confirmed By:RONNIE ARIAS MD
[2023-01-01 13:07] VITALS: BP 114/87; PULSE 74; RESP 16; O2SAT 95
--- NOTE | 2023-01-01 13:15 | RAD_ITS ---
STUDY: X-RAY CHEST REASON FOR EXAM: Female, 87 years old. Chest pain TECHNIQUE: Single AP portable view of the chest. COMPARISON: Comparison is made with prior study dated April 18, 2016. FINDINGS: EKG electrodes are seen. Hyperinflation. The lungs are clear. There is no demonstrated pleural abnormality. Normal size heart. Normal mediastinum and loulou. Normal visualized pulmonary arteries. There is atherosclerotic tortuosity of the aortic arch and descending thoracic aorta. There are diffuse degenerative changes of the visualized thoracic spine. There is degenerative osteoarthritis of the bilateral shoulders. There is no demonstrated abnormality of the visualized soft tissue structures of the upper abdomen. RAD/Chest 1 View (Portable) IMPRESSION: Hyperinflation. The lungs are clear. Electronically Signed: Jared Mercedes MD at 13:27 EDT ,
[2023-01-01 14:01] LABS: Absolute Lymphocyte Count 1.76 X10^3/uL (0.83-4.51); Absolute Neutrophil Count 3.9 X10^3/uL (2.0-7.7); Basophil# 0.05 X10^3/uL; Basophil% 0.8 % (0-1); Eosinophil# 0.08 X10^3/uL; Eosinophils% 1.3 % (0-5); Hematocrit 43.9 % (37-47); Hemoglobin 13.9 g/dL (12.0-15.0); Lymphocyte # 1.76 X10^3/ul (0.83-4.51); Lymphocyte % 28.5 % (19-41); Mean Corp Hgb Conc 31.7 g/dL (32-36); Mean Corpuscular Hgb 28.1 pg (27.0-32.0); Mean Corpuscular Volume 88.7 fL (81-99); Mean Platelet Vol. 12.1 fl (6.2-12.0); Monocyte# 0.38 X10^3/uL; Monocyte% 6.2 % (0-10); NRBC Flagged by Analyzer 0 % (0-5); Neutrophil # 3.88 X10^3/uL (2.7-7.7); Neutrophil % 62.9 % (47-70); POSITIVE COUNT YES; RBC Distribution Width CV 13.9 % (11.6-14.6); RBC Distribution Width SD 44.8 fl (35.1-43.9); Red Blood Count 4.95 M/mm3 (4.2-5.4); White Blood Count 6.2 K/mm3 (4.4-11.0)
[2023-01-01 14:15] VITALS: BP 118/72; PULSE 74; RESP 15; O2SAT 94
[2023-01-01 14:15] LABS: Bacteria 0 SEEN /hpf (None Seen); Mucous, Urine 0 SEEN /hpf (<or=2+); Red Blood Cells-Urine 0 SEEN /hpf (0-5); Squamous Epithelial Cells - UA 0 SEEN /hpf (5-10)
[2023-01-01 14:17] LABS: Color, Urine Yellow (Yellow); Glucose, Dipstick Normal (Normal); Ketone-Dipstick Negative (Negative); Leukocyte Esterase-Dipstick 25 /ul (Negative); Nitrite-Dipstick Negative (Negative); Occult Blood-Urine Negative /ul (Negative); Protein-Dipstick Negative (Negative); Urine Bilirubin Dipstick Negative (Negative); Urine Clarity Clear (Clear); Urine Urobilinogen Normal (Normal)
[2023-01-01 14:21] LABS: AST(SGOT) 18 U/L (15-37); Alanine Aminotransfer ALT/SGPT 18 U/L (13-56); Albumin, Serum 3.8 g/dL (3.2-5.0); Alkaline Phosphatase 78 U/L (45-117); Anion Gap 4 (5-15); BUN 12 mg/dL (7-18); BUN/Creat Ratio 14.7 RATIO (10-20); Calcium,Total 10.1 mg/dL (8.5-10.1); Chloride 111 mmol/L (98-107); Creatinine, Serum 0.82 mg/dL (0.55-1.02); EST Glomerular Filtration Rate 71 mL/min (>60); Est Glom Filt Rate - Afr Amer 85 mL/min (>60); Estimated Creatinine Clearance 38.23 ml/min; Globulin 3.9 g/dL (2.2-4.2); Glucose 107 mg/dL (74-106); Potassium 4.2 mmol/L (3.5-5.1); Protein, Total 7.7 g/dL (6.4-8.2); Sodium Level 141 mmol/L (136-145); Troponin-I HS 6 pg/mL (3.0-54.0)
[2023-01-01 14:23] LABS: White Blood Cells 0-5 SEEN /hpf (0-5)
[2023-01-01 14:25] LABS: Differential Indicated SCAN CRITERIA MET
[2023-01-01 14:26] LABS: Platelet Estimate ADEQUATE (ADEQ)
[2023-01-01 15:01] VITALS: BP 120/74; PULSE 73; RESP 17; O2SAT 93
[2023-01-01 16:00] VITALS: BP 126/76; PULSE 73; PULSE 78; RESP 13; RESP 16; O2SAT 93; O2SAT 94
== END 2023-01-01 16:17 | disposition home or self-care (01) ==
PROVIDERS: Emergency Provider Emergency Medicine; PCP Internal Medicine; Visit Provider Emergency Medicine
DX: R53.1 Weakness (principal); R35.89 Other polyuria; I49.1 Atrial premature depolarization; G47.30 Sleep apnea, unspecified
CPT/HCPCS: 71045; 80053; 81001; 84484; 85025; 87086; 87088; 87428; 93005; 99283; J7040; A4216

== ENCOUNTER 2023-09-18 15:00 | Emergency (ER) | payer MEDICARE, BC, SELFPAY ==
[2023-09-18 15:01] VITALS: BP 148/72; PULSE 73; RESP 18; TEMP 36.4; O2SAT 95
--- NOTE | 2023-09-18 15:28 | EKG12_ITS ---
Test Reason : Blood Pressure : / mmHG Vent. Rate : 073 BPM Atrial Rate : 073 BPM P-R Int : 232 ms QRS Dur : 072 ms QT Int : 386 ms P-R-T Axes : 052 -20 050 degrees QTc Int : 425 ms Sinus rhythm with 1st degree A-V block Low voltage QRS Borderline ECG Confirmed by ZACK CHRISTENSEN, SRAVANTHI ([id number]), video editor MAINE ESTEVEZ ([id number]) on 09/20/2023 9:43:40 AM Referred By: Confirmed By:SRAVANTHI DIXON MD
--- NOTE | 2023-09-18 15:35 | EX.ED.DYSGE1 ---
HPI <NEFTALI Moreira - Last Filed: 09/18/23 17:39> History of Present Illness Chief Complaint: General Illness Narrative Narrative: Patient is an 88-year-old female with history of hypothyroidism hypertension MVP, fibromyalgia who presents to the emergency department for 3 to 4 days of worsening fatigue and weakness. Per the patient's family, the patient is also been having some hallucinations at nighttime, they are concerned that she might have an infection. Patient states she has some chest pressure intermittently over the last 3 to 4 days. She denies any nausea or vomiting. Patient denies any specific pain, whenever asked how she feels, she just says weak. PFS <NEFTALI Moreira - Last Filed: 09/18/23 17:39> COUNTS INCLUDE 234 BEDS AT THE [facility] Medical History Abdominal pain Acute ischemic stroke Anxiety Arthritis Constipation Deafness in left ear Fatigue Fibromyalgia Hemorrhoids Hypertension Hypothyroidism Mitral valve prolapse Nausea Sleep apnea Home Medications cyclobenzaprine 10 mg tablet 10 mg PO QHS PRN PRN Spasms 05/27/15 [History Last Taken Unknown] diazepam 5 mg tablet 10 mg PO QHS PRN Anxiety 05/27/15 [History Last Taken Unknown] ergocalciferol (vitamin D2) 1,250 mcg (50,000 unit) capsule 50,000 unit PO Q7D 05/27/15 [History Last Taken Unknown] levothyroxine 25 mcg tablet 25 mcg PO DAILY thyroid 05/27/15 [History Last Taken 12/30/17 0530] magnesium 250 mg tablet 250 mg PO DAILY supplement 05/27/15 [History Last Taken Unknown] methylphenidate HCl 10 mg tablet 10 mg PO DAILY PRN Anxiety 05/27/15 [History Last Taken Unknown] metoprolol succinate 50 mg tablet,extended release 24 hr 50 mg PO DAILY BP 05/27/15 [History Last Taken 12/30/17 0530] oxycodone-acetaminophen 5 mg-325 mg tablet 1 tab PO 5X/DAY pain 05/27/15 [History Last Taken 06/03/15 06:00] plant stanol mary 450 mg capsule 900 mg PO DAILY cholesterol 05/27/15 [History Last Taken Unknown] fluticasone propionate 50 mcg/actuation nasal spray,suspension 1 spray NASAL DAILY PRN Nasal Congestion 12/12/17 [History Last Taken Unknown] ujeodnnyuudw-ajxrrwrg-sqag fumarate 7.5 mg-folic acid 400 mcg tablet 1 ea PO DAILY 12/28/17 [History Last Taken Unknown] dicyclomine 10 mg capsule 10 mg PO TIDAC #40 caps 12/30/17 [Rx Last Taken Unknown] cephalexin 500 mg capsule 500 mg PO Q12 #14 caps 04/09/22 [Rx Last Taken Unknown] ondansetron 4 mg disintegrating tablet 4 mg PO Q8H PRN nausea and vomiting #14 tabs 04/09/22 [Rx Last Taken Unknown] ondansetron 4 mg disintegrating tablet 8 mg (2 x 4 mg) PO Q8H PRN PRN Nausea #20 tabs 05/24/22 [Rx Last Taken Unknown] haloperidol 0.5 mg tablet 0.5 mg PO QHS #10 tabs 09/18/23 [Rx Last Taken Unknown] Allergy/AdvReac Type Severity Reaction Status Date / Time pregabalin [From Lyrica] Allergy Unknown Unknown Verified 09/18/23 15:01 neomycin Allergy HEARING Verified 09/18/23 15:01 LOSS bupropion [From Wellbutrin] AdvReac PT UNSURE Verified 09/18/23 15:01 OF REACTION ezetimibe [From Zetia] AdvReac Other Verified 09/18/23 15:01 nitrofurantoin AdvReac Diarrhea Verified 09/18/23 15:01 [From Macrobid] pentazocine lactate AdvReac FELT VERY Verified 09/18/23 15:01 [From Talwin] DISCONNECTED Family History Mother No problems noted. Surgical History Cataract extraction status of right eye H/O colonoscopy History of lumpectomy of both breasts History of partial colectomy Hx of cholecystectomy Hx of vein stripping left toe surgery S/P tympanoplasty Social History Smoking Status: Never smoker second hand exposure: No alcohol intake: never substance use type: does not use caffeine: No what type of physical activity do you participate in: none frequency: does not exercise seatbelt use: always do you feel safe at home: Yes additional social history: - Moi ROS <KUSHAL MoreiraC - Last Filed: 09/18/23 17:39> ROS ED ROS Narrative Constitutional: Negative for fever, chills, weight loss. Positive for weakness Eyes: Negative for vision loss, vision change, double vision ENT: Negative for any sore throat, ear pain, congestion Cardiovascular: Negative for any chest pain, tightness, palpitations Respiratory: Negative for any cough, sputum production, hemoptysis, dyspnea, dyspnea on exertion, orthopnea Gastrointestinal: Negative for any abdominal pain, nausea, vomiting, diarrhea, constipation, blood in stool, blood in vomit : Negative for any urinary dysuria, retention, blood in urine. Positive for urinary frequency Muscle skeletal: Negative for any neck pain, back pain Neurological: Negative for any headache, syncope, dizziness. Positive for visual hallucinations Skin: Negative for any rashes, itching, abrasions, lacerations Psychiatric: Negative for any depression, anxiety, stress, suicidal ideation, homicidal ideation Hematologic: Negative for any excessive bruising, easy bleeding EXAM <NEFTALI Moreira - Last Filed: 09/18/23 17:39> Physical Exam Narrative Exam Narrative: Vital signs reviewed. Patient is alert and oriented x 4 on my examination. No visual or auditory hallucinations at this time. Patient is acting appropriate. HEET: Head normocephalic atraumatic, TMs clear bilaterally. Posterior pharynx is clear, dry mucous membranes. Nares clear bilaterally. Neck: Supple with no lymphadenopathy or tenderness. No signs of meningismus. Cardiac: Regular rate and rhythm no murmurs gallops or rubs, equal peripheral pulses bilaterally. Respiratory: Lungs clear to auscultation bilaterally. No chest tenderness. Abdomen: Soft, nontender, nondistended. No abdominal bruit or pulsatile masses. No hepatosplenomegaly Extremities: No peripheral edema, no signs of gross trauma or deformity. Active full range of motion of all extremities. Neuro: Cranial nerves II through XII intact, no focal neurological deficits. Skin: Clean dry and intact with no rash, purpura, petechiae, vesicles or pustules. Backs/flank: No CVA tenderness, no midline spinal tenderness, no deformity. Psych: Normal mood and affect. No SI, HI or acute psychosis. Const Vital Signs: 09/18/23 15:01 09/18/23 15:38 09/18/23 15:38 Temperature 97.6 F L 98.2 F Temperature Source Temporal Temporal Pulse Rate 73 73 Respiratory Rate 18 16 Respiratory Effort Normal Respiratory Pattern Normal Blood Pressure 148/72 H 146/87 H Blood Pressure Mean 97 106 Pulse Ox 95 92 Oxygen Delivery Method Room Air Room Air 09/18/23 15:42 09/18/23 16:04 09/18/23 17:00 Temperature 98.0 F 98.2 F Temperature Source Oral Oral Pulse Rate 69 74 Respiratory Rate 16 16 Respiratory Effort Normal Respiratory Pattern Normal Blood Pressure 139/77 H 144/77 H Blood Pressure Mean 97 99 Pulse Ox 98 93 Oxygen Delivery Method Room Air Room Air <Dr. Joel Villagran MD - Last Filed: 09/18/23 17:43> Physical Exam Const Vital Signs: 09/18/23 15:01 09/18/23 15:38 09/18/23 15:38 Temperature 97.6 F L 98.2 F Temperature Source Temporal Temporal Pulse Rate 73 73 Respiratory Rate 18 16 Respiratory Effort Normal Respiratory Pattern Normal Blood Pressure 148/72 H 146/87 H Blood Pressure Mean 97 106 Pulse Ox 95 92 Oxygen Delivery Method Room Air Room Air 09/18/23 15:42 09/18/23 16:04 09/18/23 17:00 Temperature 98.0 F 98.2 F Temperature Source Oral Oral Pulse Rate 69 74 Respiratory Rate 16 16 Respiratory Effort Normal Respiratory Pattern Normal Blood Pressure 139/77 H 144/77 H Blood Pressure Mean 97 99 Pulse Ox 98 93 Oxygen Delivery Method Room Air Room Air MDM <NEFTALI Moreira - Last Filed: 09/18/23 17:39> [facility] Lab Data Labs: Laboratory Results - last 24 hr 09/18/23 15:34 WBC 6.3 RBC 4.99 Hgb 14.5 Hct 43.2 MCV 86.6 MCH 29.1 MCHC 33.6 RDW Std Deviation 44.0 H RDW Coeff of Milagros 13.8 Plt Count 214 MPV 11.1 Immature Gran % (Auto) 0.200 Neut % (Auto) 55.6 Lymph % (Auto) 33.6 Finney % (Auto) 8.2 Eos % (Auto) 1.6 Baso % (Auto) 0.8 Absolute Neuts (auto) 3.5 Absolute Lymphs (auto) 2.13 Nucleated RBC % 0 Sodium 142 Potassium 4.3 Chloride 112 H Carbon Dioxide 24.0 Anion Gap 6 BUN 21 H Creatinine 0.90 Estim Creat Clear Calc 39.06 Est GFR (MDRD) Af Amer 76 Est GFR (MDRD) Non-Af 63 BUN/Creatinine Ratio 23.3 H Glucose 124 H Calcium 10.5 H Troponin I High Sens 4 Urine Color Straw Urine Clarity Clear Urine pH 7.0 Ur Specific Sheridan 1.005 Urine Protein Negative Urine Glucose (UA) Normal Urine Ketones Negative Urine Occult Blood Negative Urine Nitrite Negative Urine Bilirubin Negative Urine Urobilinogen Normal Ur Leukocyte Esterase Negative Urine RBC 0 SEEN Urine WBC 0 SEEN Ur Squamous Epith Cells 0 SEEN Urine Bacteria 0 SEEN Urine Mucus 0 SEEN Radiography Diagnostic Testing: Clinical Impression(s) from Imaging Studies Chest X-Ray 09/18/23 15:47 IMPRESSION: No radiographic evidence of acute cardiopulmonary disease. Electronically Signed: Jackson Chanel DO at 16:01 EDT , Treatment and Re-Evaluation :: Differential diagnosis includes however is not limited to: UTI, COVID-19, influenza, RSV, viral syndrome Patient is alert and orient x 4, patient's vital signs are stable, patient is no distress. Patient presents to the emergency department with complaints of altered mental status, concern for some sort of infection. Most of this is occurring at nighttime. Patient's laboratory values showed normal CBC, patient's chemistries were unremarkable, glucose 124, troponin was negative. EKG was unremarkable. Patient's chest x-ray showed no radiographic evidence of acute cardiopulmonary process. Patient's urinalysis was negative for any infection. COVID-19 influenza and RSV were negative. At this time, patient shows no signs of infection. There is no evidence at this time of an infectious encephalopathy. At this time, I spoke with the patient, patient's family. The patient be given Haldol 0.5 mg at nighttime when most of these symptoms are occurring. She will follow-up closely with her PCP. She was given strict return precaution, all questions answered stable for discharge. <Dr. Joel Villagran MD - Last Filed: 09/18/23 17:43> MDM MDM Narrative Medical decision making narrative: I have personally performed a face to face assessment of the patient and have reviewed the KHANH Note. I performed a substantive portion of the visit including all aspects of the following. My ojeda findings include: History is remarkable for intermittent visual hallucinations past 2 to 3 weeks. She is on no new medication. There is no history of alcohol use. She has no psychiatric disorder. She denies headache. She presently has no visual, ocular auditory symptoms. She denies trouble speech or swallowing. She denies cardiac respiratory symptoms. Denies GI symptoms. She denies urologic symptoms. She denies paresthesia, anesthesia medics. She denies problems with coordination or balance. Exam is unremarkable. She is a pleasant elderly woman. Blood pressure slightly elevated. Head atraumatic normocephalic. Ears normal. Nares patent. Mucosa is moist. Posterior pharynx is normal. Trachea is midline there is no carotid bruits. Lungs are clear auscultation. Heart is regular. Abdomen soft nontender. Examination extremities are unremarkable. Neuroexam is nonfocal. She is alert orient x 3. No dysmetria. Motor or sensory intact. There is no clonus Babinski sign. Cranials 2 through 12 are intact. Medical Decision Making differential diagnosis would be sundowning. This also could represent metabolic or infectious cause and reason for workup. Other additions or changes: [None] Lab Data Attestation: I reviewed the patient's lab results. Lab results narrative: CBC is normal. Basic metabolic panel reveals slight elevation of calcium which she has had in the past. Glucose is 124 with normal CO2 anion gap. Urinalysis is negative. Labs: Laboratory Results - last 24 hr 09/18/23 15:34 WBC 6.3 RBC 4.99 Hgb 14.5 Hct 43.2 MCV 86.6 MCH 29.1 MCHC 33.6 RDW Std Deviation 44.0 H RDW Coeff of Milagros 13.8 Plt Count 214 MPV 11.1 Immature Gran % (Auto) 0.200 Neut % (Auto) 55.6 Lymph % (Auto) 33.6 Finney % (Auto) 8.2 Eos % (Auto) 1.6 Baso % (Auto) 0.8 Absolute Neuts (auto) 3.5 Absolute Lymphs (auto) 2.13 Nucleated RBC % 0 Sodium 142 Potassium 4.3 Chloride 112 H Carbon Dioxide 24.0 Anion Gap 6 BUN 21 H Creatinine 0.90 Estim Creat Clear Calc 39.06 Est GFR (MDRD) Af Amer 76 Est GFR (MDRD) Non-Af 63 BUN/Creatinine Ratio 23.3 H Glucose 124 H Calcium 10.5 H Troponin I High Sens 4 Urine Color Straw Urine Clarity Clear Urine pH 7.0 Ur Specific Sheridan 1.005 Urine Protein Negative Urine Glucose (UA) Normal Urine Ketones Negative Urine Occult Blood Negative Urine Nitrite Negative Urine Bilirubin Negative Urine Urobilinogen Normal Ur Leukocyte Esterase Negative Urine RBC 0 SEEN Urine WBC 0 SEEN Ur Squamous Epith Cells 0 SEEN Urine Bacteria 0 SEEN Urine Mucus 0 SEEN Radiography Diagnostic Testing: Clinical Impression(s) from Imaging Studies Chest X-Ray 09/18/23 15:47 IMPRESSION: No radiographic evidence of acute cardiopulmonary disease. Electronically Signed: Jackson Chanel DO at 16:01 EDT , Discharge Plan Triage Chief Complaint: General Illness ED Midlevel Provider: Jericho Purdy ED Provider: Joel Villagran Dx/Rx/DC Orders Clinical Impression: Acute alteration in mental status, Confusion, Hallucinations, Hallucination, visual Instructions: What is Delirium?, ED ALOC Prescriptions: New haloperidol 0.5 mg tablet 0.5 mg PO QHS Qty: 10 0RF No Action cyclobenzaprine 10 MG tablet 10 mg PO QHS PRN PRN (Reason: Spasms) methylphenidate HCl 10 MG tablet 10 mg PO DAILY PRN (Reason: Anxiety) levothyroxine 25 MCG tablet 25 mcg PO DAILY oxycodone-acetaminophen 1 TABLET tablet 1 tab PO 5X/DAY diazepam 5 MG tablet 10 mg PO QHS PRN (Reason: Anxiety) metoprolol succinate 50 MG tablet 50 mg PO DAILY magnesium 250 MG tablet 250 mg PO DAILY ergocalciferol (vitamin D2) 50,000 UNIT capsule 50,000 unit PO Q7D Patient Comments: TAKES EVERY WEDNESDAY plant stanol mary 450 MG capsule 900 mg PO DAILY fluticasone propionate 1 SPRAY spray,suspension 1 spray NASAL DAILY PRN (Reason: Nasal Congestion) haeiqcpw-wmr-snwp fum-folic ac 1 EACH tablet 1 ea PO DAILY dicyclomine 10 MG capsule 10 mg PO TIDAC Qty: 40 2RF cephalexin 500 mg capsule 500 mg PO Q12 Qty: 14 0RF ondansetron 4 mg tablet,disintegrating 4 mg PO Q8H PRN (Reason: nausea and vomiting) Qty: 14 0RF ondansetron [ondansetron] 4 MG tablet 8 mg PO Q8H PRN PRN (Reason: Nausea) Qty: 20 0RF Primary Care Provider: Ana Palmer Referrals: Ana Palmer MD [Primary Care Provider] - Activity Restrictions/Additional Instructions: Try the Haldol at nighttime. Hopefully this reduces symptoms. If anything gets worse, please return. Please follow-up with your PCP Disposition Disposition: Home, Self Care
[2023-09-18] MEDS: 0.9% Normal Saline (1000mL) 1,000 ML 1000 ML IV (15:37)
[2023-09-18 15:38] VITALS: BP 146/87; PULSE 73; RESP 16; TEMP 36.8; O2SAT 92; BMI 26.9
[2023-09-18 15:39] LABS: Bacteria 0 SEEN /hpf (None Seen); Mucous, Urine 0 SEEN /hpf (<or=2+); Red Blood Cells-Urine 0 SEEN /hpf (0-5); Squamous Epithelial Cells - UA 0 SEEN /hpf (5-10); White Blood Cells 0 SEEN /hpf (0-5)
--- NOTE | 2023-09-18 15:47 | RAD_ITS ---
EXAM: XR CHEST, 1 VIEW CLINICAL INDICATION: cough TECHNIQUE: Frontal view of the chest. COMPARISON: 01/01/2023 FINDINGS: LUNGS AND PLEURAL SPACES: No significant abnormality. No consolidation or edema. No pneumothorax. No effusion. HEART: No significant abnormality. Cardiac silhouette not enlarged. MEDIASTINUM: Central airways and mediastinal contour are unremarkable. BONES/JOINTS: No significant abnormality. No acute fracture. SOFT TISSUES: No significant abnormality. RAD/Chest 1 View (Portable) IMPRESSION: No radiographic evidence of acute cardiopulmonary disease. Electronically Signed: Jackson Chanel DO at 16:01 EDT ,
[2023-09-18 15:48] LABS: Color, Urine Straw (Yellow); Glucose, Dipstick Normal (Normal); Ketone-Dipstick Negative (Negative); Leukocyte Esterase-Dipstick Negative /ul (Negative); Nitrite-Dipstick Negative (Negative); Occult Blood-Urine Negative /ul (Negative); Protein-Dipstick Negative (Negative); Specific Gravity, Urine 1.005 (1.002-1.030); Urine Bilirubin Dipstick Negative (Negative); Urine Clarity Clear (Clear); Urine Urobilinogen Normal (Normal)
[2023-09-18 16:04] VITALS: BP 139/77; PULSE 69; RESP 16; TEMP 36.7; O2SAT 98
[2023-09-18 16:08] LABS: Anion Gap 6 (5-15); BUN 21 mg/dL (7-18); BUN/Creat Ratio 23.3 RATIO (10-20); Calcium,Total 10.5 mg/dL (8.5-10.1); Chloride 112 mmol/L (98-107); EST Glomerular Filtration Rate 63 mL/min (>60); Est Glom Filt Rate - Afr Amer 76 mL/min (>60); Estimated Creatinine Clearance 39.06 ml/min; Glucose 124 mg/dL (74-106); Potassium 4.3 mmol/L (3.5-5.1); Sodium Level 142 mmol/L (136-145); Troponin-I HS 4 pg/mL (3.0-54.0)
[2023-09-18 17:00] VITALS: BP 144/77; PULSE 74; RESP 16; TEMP 36.8; O2SAT 93
--- NOTE | 2023-09-18 17:09 | ED.RN ---
1710: CALLED LAB ABOUT PENDING LAB WORK, THERE WAS A MISUNDERSTANDING WITH WHO WAS RUNNING IT. SPOKE WITH RONAL, HE WILL RUN IT WITHIN THE NEXT 5 MINUTES.
[2023-09-18 17:17] LABS: Absolute Lymphocyte Count 2.13 X10^3/uL (0.83-4.51); Absolute Neutrophil Count 3.5 X10^3/uL (2.0-7.7); Basophil# 0.05 X10^3/uL; Basophil% 0.8 % (0-1); Eosinophils% 1.6 % (0-5); Hematocrit 43.2 % (37-47); Hemoglobin 14.5 g/dL (12.0-15.0); Lymphocyte # 2.13 X10^3/ul (0.83-4.51); Lymphocyte % 33.6 % (19-41); Mean Corp Hgb Conc 33.6 g/dL (32-36); Mean Corpuscular Hgb 29.1 pg (27.0-32.0); Mean Corpuscular Volume 86.6 fL (81-99); Mean Platelet Vol. 11.1 fl (6.2-12.0); Monocyte# 0.52 X10^3/uL; Monocyte% 8.2 % (0-10); NRBC Flagged by Analyzer 0 % (0-5); Neutrophil # 3.52 X10^3/uL (2.7-7.7); Neutrophil % 55.6 % (47-70); Platelet Count 214 K/mm3 (150-450); RBC Distribution Width CV 13.8 % (11.6-14.6); Red Blood Count 4.99 M/mm3 (4.2-5.4); White Blood Count 6.3 K/mm3 (4.4-11.0)
[2023-09-18 17:53] VITALS: BP 139/79; PULSE 66; RESP 16; TEMP 36.8; O2SAT 99
== END 2023-09-18 17:54 | disposition home or self-care (01) ==
PROVIDERS: Nurse Practitioner; Emergency Provider Emergency Medicine; PCP Internal Medicine; Visit Provider Emergency Medicine
DX: R41.82 Altered mental status, unspecified (principal); R44.1 Visual hallucinations; G47.30 Sleep apnea, unspecified; Z86.73 Personal history of transient ischemic attack (TIA), and cerebral infarction without residual deficits
CPT/HCPCS: 71045; 80048; 81001; 84484; 85025; 87631; 93005; 96360; 99284; J7030; A4216

== ENCOUNTER 2024-05-10 05:21 | Observation (INO) | payer MEDICARE, BC, SELFPAY ==
[2024-05-10] VITALS (11 sets, daily range): BP systolic 115–152; BP diastolic 52–87; PULSE 68–91; RESP 16–18; TEMP 36.5–37; O2SAT 94–98; BMI 24.2; BMI 23.0
--- NOTE | 2024-05-10 05:33 | CT_ITS ---
EXAM: CT HEAD WITHOUT INTRAVENOUS CONTRAST CLINICAL INDICATION: hallucinations TECHNIQUE: Multiple axial images were obtained of the head without intravenous contrast. This CT exam was performed using one or more of the following dose reduction techniques: automated exposure control, adjustment of the mA and/or kV according to patient size, and/or use of iterative reconstruction technique. RADIATION DOSE: Total DLP: 745.49 mGy-cm. COMPARISON: Cranial MR of 12/13/2017. FINDINGS: BRAIN AND EXTRA-AXIAL SPACES: Findings of mild age-related atrophy present with prominence of the cortical sulci, basal cisterns, sylvian fissures and ventricles. Extensive chronic small vessel ischemic changes are noted within the deep white matter tracts. No intra- or extra-axial hemorrhage. No intracranial mass or mass effect. Posterior fossa structures are unremarkable. Oconnor-white matter differentiation is preserved. There is no sulcal effacement. BONES/JOINTS: Unremarkable. No discrete lytic or blastic abnormalities. VASCULATURE: Atherosclerotic vascular calcification is present. The middle cerebral arteries are not hyperdense. SINUSES: Unremarkable as visualized. Clear. MASTOID AIR CELLS: Chronic fluid noted within the inferior right mastoid air cells, as noted on prior MRI. Left mastoid air cells are clear. ORBITS: Punctate calcification noted along the posterior aspect of the right globe at the insertion of the optic nerve, indicating a benign drusen. CT/Brain/Head without Contrast IMPRESSION: Atrophy with chronic small vessel ischemic changes. No acute intracranial abnormality. Electronically Signed: Eliezer Abad MD at 7:44 EST ,
--- NOTE | 2024-05-10 05:34 | RAD_ITS ---
STUDY: X-RAY CHEST REASON FOR EXAM: Female, 89 years old. Confusion TECHNIQUE: Single AP portable view of the chest. COMPARISON: Comparison is made with prior study dated 06/19/2023. FINDINGS: EKG electrodes are seen. There is hyperinflation of the lungs consistent with chronic obstructive lung disease (COPD). There is no demonstrated pleural abnormality. Normal size heart. Normal mediastinum and loulou. Normal visualized pulmonary arteries. There is atherosclerotic tortuosity of the aortic arch and descending thoracic aorta. There is demineralization of the osseous structures. Normal visualized ribs, clavicles, and shoulders. There is no demonstrated abnormality of the visualized soft tissue structures of the upper abdomen. RAD/Chest PA and Lateral IMPRESSION: Hyperinflation. The lungs are clear. Electronically Signed: Jared Mercedes MD at 8:27 EST ,
--- NOTE | 2024-05-10 05:34 | EKG12_ITS ---
Test Reason : Blood Pressure : */* mmHG Vent. Rate : 78 BPM Atrial Rate : 78 BPM P-R Int : 210 ms QRS Dur : 72 ms QT Int : 368 ms P-R-T Axes : 37 -18 30 degrees QTcB Int : 419 ms Sinus rhythm with 1st degree A-V block Otherwise normal ECG Confirmed by ZACK CHRISTENSEN, SRAVANTHI ([id number]), assignment editor JOHNNY MOHR ([id number]) on 05/11/2024 10:57:42 AM Referred By: Confirmed By: SRAVANTHI DIXON MD
--- NOTE | 2024-05-10 05:35 | EX.ED.DYSGE1 ---
HPI <Dr. Junaid Kent, DO - Last Filed: 05/13/24 03:18> History of Present Illness Chief Complaint: Confusion Informant: patient and EMS Narrative Narrative: Brought in for evaluation concerns of confusion. Yesterday at express care diagnosed with UTI status post 3 doses of Keflex. Per patient denies headache or cough no chest or abdominal pain. She reports that her daughter took her to express care due to reading up on things and evaluating her felt she could have infection. Denies dysuria. No patient reported called police multiple times this evening. Patient reports first time she called fear for safety from her's significant other. She states he was yelling at her. She states initially she was going to bed looking for her grandfather however it ended up being her spouse for which she did not expect. [facility] <Dr. Junaid Kent, DO - Last Filed: 05/13/24 03:18> [facility] Medical History (Updated 05/10/24 @ 12:47 by Patricia Allen) Diverticulitis Restless legs Depression Irregular heart beat Dementia Deafness in left ear Hemorrhoids Nausea Constipation Abdominal pain Sleep apnea Anxiety Arthritis Fatigue Acute ischemic stroke Fibromyalgia Hypothyroidism Hypertension Mitral valve prolapse Home Medications ?Medication ?Instructions ?Recorded ?Last Taken ?Type cyclobenzaprine 10 mg tablet 10 mg PO QHS PRN PRN Spasms 05/27/15 Unknown History diazepam 5 mg tablet 10 mg PO QHS PRN Anxiety 05/27/15 Unknown History levothyroxine 25 mcg tablet 25 mcg PO DAILY thyroid 05/27/15 12/30/17 History 0530 methylphenidate HCl 10 mg tablet 10 mg PO BID Anxiety 05/27/15 Unknown History metoprolol succinate 50 mg 100 mg PO DAILY BP 05/27/15 12/30/17 History tablet,extended release 24 hr 0530 oxycodone-acetaminophen 5 mg-325 1 tab PO 5X/DAY pain 05/27/15 06/03/15 06:00 History mg tablet fluticasone propionate 50 1 spray NASAL DAILY PRN Nasal 12/12/17 Unknown History mcg/actuation nasal Congestion spray,suspension amlodipine 2.5 mg tablet 2.5 mg PO DAILY 05/10/24 Unknown History cholecalciferol (vitamin D3) 50 50 mcg PO DAILY 05/10/24 Unknown History mcg (2,000 unit) tablet (Thera-D) sulfamethoxazole 800 1 tab PO DAILY 3 days #3 tabs 05/11/24 Unknown Rx mg-trimethoprim 160 mg tablet (Bactrim DS) Allergy/AdvReac Type Severity Reaction Status Date / Time pregabalin (From Lyrica) Allergy Unknown Unknown Verified 05/10/24 05:22 neomycin Allergy HEARING Verified 05/10/24 05:22 LOSS bupropion (From Wellbutrin) AdvReac PT UNSURE Verified 05/10/24 05:22 OF REACTION ezetimibe (From Zetia) AdvReac Other Verified 05/10/24 05:22 nitrofurantoin (From AdvReac Diarrhea Verified 05/10/24 05:22 Macrobid) pentazocine lactate (From AdvReac FELT VERY Verified 05/10/24 05:22 Talwin) DISCONNECTED Family History Mother No problems noted. Surgical History Cataract extraction status of right eye S/P tympanoplasty left toe surgery History of lumpectomy of both breasts H/O colonoscopy Hx of vein stripping History of partial colectomy Hx of cholecystectomy Social History Smoking Status: Never smoker second hand exposure: No alcohol intake: never substance use type: does not use caffeine: No what type of physical activity do you participate in: none frequency: does not exercise seatbelt use: always do you feel safe at home: Yes additional social history: - Moi [facility]YL[facility] <Dr. Junaid Kent DO - Last Filed: 05/13/24 03:18> [facility] ED Constitutional Constitutional ED: Denies chills, fever(s) or sweats ENT ENT ED: Denies sore throat Cardiovascular Cardiovascular: Denies chest pain, leg edema, palpitations or racing heartbeat Respiratory/Chest Respiratory/Chest: Denies cough, dyspnea or dyspnea on exertion Gastrointestinal Gastrointestinal: Denies abdominal pain, diarrhea, nausea or vomiting Genitourinary Genitourinary ED: Denies dysuria, hematuria or urinary frequency Musculoskeletal Musculoskeletal: Denies back pain, extremity pain or neck pain Integumentary Denies rash or wounds Neurologic Neurologic: Denies headache(s), paresthesias or weakness EXAM <Dr. Junaid Kent, DO - Last Filed: 05/13/24 03:18> Physical Exam Const Vital Signs: 05/10/24 05:22 05/10/24 05:26 05/10/24 06:30 Temperature 98.4 F 98.4 F 98.4 F Temperature Source Oral Oral Oral Pulse Rate 82 81 77 Respiratory Rate 16 16 18 Blood Pressure 152/74 H 152/74 H 123/52 H Blood Pressure Mean 100 100 75 Pulse Ox 94 96 95 Oxygen Delivery Method Room Air Room Air Room Air 05/10/24 07:00 05/10/24 07:21 05/10/24 08:00 Temperature 98.2 F 98.6 F Temperature Source Oral Oral Pulse Rate 78 75 68 Respiratory Rate 16 18 16 Blood Pressure 117/72 117/72 127/61 H Blood Pressure Mean 87 87 83 Pulse Ox 98 98 95 Oxygen Delivery Method Room Air Room Air 05/10/24 09:00 Temperature Temperature Source Pulse Rate 74 Respiratory Rate 16 Blood Pressure 128/78 H Blood Pressure Mean 94 Pulse Ox 95 Oxygen Delivery Method Positive well nourished and well developed Constitutional Narrative: Cooperative, nontoxic General Appearance ED: well developed and NAD HEENT Reports moist mucous membranes normocephalic and atraumatic Eyes General Eye ED: Yes normal appearance of both eyes Neck full ROM Chest Wall Chest: Negative for tenderness Resp normal respiratory effort and normal air movement Effort and Inspection: symmetric chest movement; Negative for respiratory distress Cardio regular rate, regular rhythm and no murmurs Peripheral Pulses: pulses 2+ throughout GI normal to inspection, nondistended, normoactive bowel sounds and non-tender GI Narrative: Negative Donahue's or McBurney's tenderness Palpation: Negative for guarding or rebound tenderness present Extremity normal to inspection General Extremety ED: Negative for edema or tenderness General Extremity: Negative for edema Neuro oriented x3, CN's II-XII intact bilaterally and no sensory deficits noted Sensorium / Orientation: awake and alert Psych Psych Narrative: Hallucinations, talking about her grandfather who she is supposed to see next to her bed when she is 89 years old. Skin no rashes or lesions noted and no wounds <Dr. Trent Avalos, DO - Last Filed: 05/10/24 11:24> Physical Exam Const Vital Signs: 05/10/24 05:22 05/10/24 05:26 05/10/24 06:30 Temperature 98.4 F 98.4 F 98.4 F Temperature Source Oral Oral Oral Pulse Rate 82 81 77 Respiratory Rate 16 16 18 Blood Pressure 152/74 H 152/74 H 123/52 H Blood Pressure Mean 100 100 75 Pulse Ox 94 96 95 Oxygen Delivery Method Room Air Room Air Room Air 05/10/24 07:00 05/10/24 07:21 05/10/24 08:00 Temperature 98.2 F 98.6 F Temperature Source Oral Oral Pulse Rate 78 75 68 Respiratory Rate 16 18 16 Blood Pressure 117/72 117/72 127/61 H Blood Pressure Mean 87 87 83 Pulse Ox 98 98 95 Oxygen Delivery Method Room Air Room Air 05/10/24 09:00 Temperature Temperature Source Pulse Rate 74 Respiratory Rate 16 Blood Pressure 128/78 H Blood Pressure Mean 94 Pulse Ox 95 Oxygen Delivery Method MDM <Dr. Junaid Kent, DO - Last Filed: 05/13/24 03:18> MDM MDM Narrative Medical decision making narrative: Interventions / MDM: Differential diagnosis: Urinary tract infection, hallucination Diagnosis considered but do not suspect: Intracranial hemorrhage, intracranial mass, CT negative. My EKG interpretation: Sinus rate of 78, no ST changes isolated T wave flattening leads III nonspecific. QTc 419. Imaging independently reviewed and interpreted by myself: 2 view chest x-ray: No acute process. CT brain: No acute process however pending final read at this time. External documents reviewed: N/A Test considered but not ordered:N/A ED course: Patient alert orient x 3 vital stable however appears to be hallucinating thinking grandfathers around she is 89 years old. Reportedly diagnosed with UTI yesterday on antibiotics. Denies dysuria. Denies vomiting diarrhea. Will check labs recheck urine chest x-ray CT brain with her hallucinations. Will reevaluate. 0715: Workup slight urine infection however also has squamous cells and sent her for culture. White count 8.9 creatinine 0.90. Chest x-ray reviewed by myself shows no acute process. CT brain also no acute process pending final read. Attempted to call her Rick left a message. I spoke with her daughter Lady over the phone and she is the one who took her to express care 2 days ago she is on the antibiotics. She she states she has been reporting that her dad or patient spouse has been the grandfather. They are seeing the PCP on the to discuss her issues. There has been no diagnosed dementia however she has reported issues of sundowning in the past. She states she looked on her phone with [facility] that there was a positive urine culture she has not called on this. She is coming to the ED and pick it up her father. We will plan to review the culture and discuss disposition plans. Re-evaluation: stable Disposition discussed with patient/family/significant other: Patient and daughter Case discussed with consulting clinician: N/A This note was generated with [employer] dictation software. It may contain incorrect words, spelling, and punctuation that were not noted in checking the note before signing. Lab Data Attestation: I reviewed the patient's lab results. Labs: Laboratory Results - last 24 hr 05/10/24 05/10/24 05:39 05:50 WBC 8.9 RBC 4.56 Hgb 12.8 Hct 39.1 MCV 85.7 MCH 28.1 MCHC 32.7 RDW Std Deviation 42.7 RDW Coeff of Milagros 13.7 Plt Count 234 MPV 11.0 Immature Gran % (Auto) 0.400 Neut % (Auto) 62.8 Lymph % (Auto) 27.0 [place] % (Auto) 8.0 Eos % (Auto) 1.0 Baso % (Auto) 0.8 Absolute Neuts (auto) 5.6 Absolute Lymphs (auto) 2.40 Nucleated RBC % 0 Sodium 140 Potassium 3.4 L Chloride 108 H Carbon Dioxide 27.0 Anion Gap 5 BUN 20 H Creatinine 0.90 Estim Creat Clear Calc 35.05 Est GFR (MDRD) Af Amer 76 Est GFR (MDRD) Non-Af 63 BUN/Creatinine Ratio 22.2 H Glucose 141 H Calcium 10.0 Total Bilirubin 0.80 AST 11 L ALT 17 Alkaline Phosphatase 82 Total Protein 7.3 Albumin 3.9 Globulin 3.4 Albumin/Globulin Ratio 1.1 Urine Color Straw Urine Clarity Clear Urine pH 6.0 Ur Specific [place] 1.010 Urine Protein Negative Urine Glucose (UA) Normal Urine Ketones Negative Urine Occult Blood 25 H Urine Nitrite Negative Urine Bilirubin Negative Urine Urobilinogen Normal Ur Leukocyte Esterase 25 H Urine RBC 0 SEEN Urine WBC 10-25 SEEN Ur Squamous Epith Cells 25-50 SEEN Ur Transition Epith Cell 0-5 SEEN Urine Bacteria 2+ Urine Mucus 1+ Radiography Diagnostic Testing: Clinical Impression(s) from Imaging Studies Brain CT 12/18/24 05:33 IMPRESSION: Atrophy with chronic small vessel ischemic changes. No acute intracranial abnormality. Electronically Signed: Eliezer Abad MD at 7:44 EST , Chest X-Ray 05/10/24 05:34 IMPRESSION: Hyperinflation. The lungs are clear. Electronically Signed: Jared Mercedes MD at 8:27 EST , <Dr. Trent Avalos, DO - Last Filed: 05/10/24 11:24> [facility] Lab Data Labs: Laboratory Results - last 24 hr 05/10/24 05/10/24 05:39 05:50 WBC 8.9 RBC 4.56 Hgb 12.8 Hct 39.1 MCV 85.7 MCH 28.1 MCHC 32.7 RDW Std Deviation 42.7 RDW Coeff of Milagros 13.7 Plt Count 234 MPV 11.0 Immature Gran % (Auto) 0.400 Neut % (Auto) 62.8 Lymph % (Auto) 27.0 [place] % (Auto) 8.0 Eos % (Auto) 1.0 Baso % (Auto) 0.8 Absolute Neuts (auto) 5.6 Absolute Lymphs (auto) 2.40 Nucleated RBC % 0 Sodium 140 Potassium 3.4 L Chloride 108 H Carbon Dioxide 27.0 Anion Gap 5 BUN 20 H Creatinine 0.90 Estim Creat Clear Calc 35.05 Est GFR (MDRD) Af Amer 76 Est GFR (MDRD) Non-Af 63 BUN/Creatinine Ratio 22.2 H Glucose 141 H Calcium 10.0 Total Bilirubin 0.80 AST 11 L ALT 17 Alkaline Phosphatase 82 Total Protein 7.3 Albumin 3.9 Globulin 3.4 Albumin/Globulin Ratio 1.1 Urine Color Straw Urine Clarity Clear Urine pH 6.0 Ur Specific [place] 1.010 Urine Protein Negative Urine Glucose (UA) Normal Urine Ketones Negative Urine Occult Blood 25 H Urine Nitrite Negative Urine Bilirubin Negative Urine Urobilinogen Normal Ur Leukocyte Esterase 25 H Urine RBC 0 SEEN Urine WBC 10-25 SEEN Ur Squamous Epith Cells 25-50 SEEN Ur Transition Epith Cell 0-5 SEEN Urine Bacteria 2+ Urine Mucus 1+ Radiography Diagnostic Testing: Clinical Impression(s) from Imaging Studies Brain CT 05/10/24 05:33 IMPRESSION: Atrophy with chronic small vessel ischemic changes. No acute intracranial abnormality. Electronically Signed: Eliezer Abad MD at 7:44 EST , Chest X-Ray 05/10/24 05:34 IMPRESSION: Hyperinflation. The lungs are clear. Electronically Signed: Jared Mercedes MD at 8:27 EST , Treatment and Re-Evaluation :: Patient was turned over to ri by Dr. Kent @0 250 Brief history: 89-year-old female here with altered mental status in setting of UTI Physical exam: Alert and orient x 3, no focal neurologic deficits, no lateralizing signs. Abdomen soft nontender. Labs and images reviewed (if obtained): EKG with normal sinus rhythm, prolonged QT interval at 210, left ax deviation, no STEMI I have personally reviewed the patient's chest x-ray. Chest x-ray is unremarkable for pulmonary edema, pneumothorax, pneumonia or focal cardiopulmonary abnormality. CT scan of the head was negative for ICH CBC without leukocytosis, severe anemia, no thrombocytopenia. LFTs show no evidence of hepatobiliary pathology. BMP with mild hypokalemia, otherwise no YOGI or other significant electrolyte abnormalities noted. No sign of metabolic acidosis or end-organ hypoperfusion Urine with inflammation with leukocyte esterase, no nitrites, noted 2+ bacteria this consistent with likely UTI. Reviewed the patient's MyChart and assessed urinalysis from 05/08/2024 which showed positive nitrite and leuk esterase, reviewed culture from his urine sample which was positive for E. coli greater than 100,000 CFU consistent with UTI. The synthesis of the patient's history, physical exam, labs and images consult discussions are consistent with ultimately status like secondary to UTI and underlying dementia. Given the patient is not performing executive functioning well as she lives with her elderly she is not safe for home-going. I discussed case with dialysis social worker. Discussed case with family. After discussion with daughter, and social work family thought the patient would be better served being admitted given did not feel safe going home. Discussed case with hospitalist Dr. Hernandez who agreed to admit the patient to MedSurg drops. MDM/plan: Admit, MedSurg observation for UTI and altered mental status. Disposition: Admit to MedSurg ops Discharge Plan Dx/Rx/DC Orders Clinical Impression: Acute UTI, Confusion, Hallucinations Disposition Disposition: Acute Care Hospital [facility] Discharge Date/Time: 05/10/24 11:58
[2024-05-10 05:45] LABS: Absolute Neutrophil Count 5.6 X10^3/uL (2.0-7.7); Basophil# 0.07 X10^3/uL; Basophil% 0.8 % (0-1); Eosinophil# 0.09 X10^3/uL; Hematocrit 39.1 % (37-47); Hemoglobin 12.8 g/dL (12.0-15.0); Mean Corp Hgb Conc 32.7 g/dL (32-36); Mean Corpuscular Hgb 28.1 pg (27.0-32.0); Mean Corpuscular Volume 85.7 fL (81-99); Monocyte# 0.71 X10^3/uL; NRBC Flagged by Analyzer 0 % (0-5); Neutrophil # 5.58 X10^3/uL (2.7-7.7); Neutrophil % 62.8 % (47-70); Platelet Count 234 K/mm3 (150-450); RBC Distribution Width CV 13.7 % (11.6-14.6); RBC Distribution Width SD 42.7 fl (35.1-43.9); Red Blood Count 4.56 M/mm3 (4.2-5.4); White Blood Count 8.9 K/mm3 (4.4-11.0)
[2024-05-10 06:03] LABS: ALB/GLOB Ratio 1.1 RATIO (0.9-2.4); AST(SGOT) 11 U/L (15-37); Alanine Aminotransfer ALT/SGPT 17 U/L (13-56); Albumin, Serum 3.9 g/dL (3.2-5.0); Alkaline Phosphatase 82 U/L (45-117); Anion Gap 5 (5-15); BUN 20 mg/dL (7-18); BUN/Creat Ratio 22.2 RATIO (10-20); Chloride 108 mmol/L (98-107); EST Glomerular Filtration Rate 63 mL/min (>60); Est Glom Filt Rate - Afr Amer 76 mL/min (>60); Estimated Creatinine Clearance 35.05 ml/min; Globulin 3.4 g/dL (2.2-4.2); Glucose 141 mg/dL (74-106); Potassium 3.4 mmol/L (3.5-5.1); Protein, Total 7.3 g/dL (6.4-8.2); Sodium Level 140 mmol/L (136-145)
[2024-05-10 06:04] LABS: Red Blood Cells-Urine 0 SEEN /hpf (0-5)
[2024-05-10 06:15] LABS: Color, Urine Straw (Yellow); Glucose, Dipstick Normal (Normal); Ketone-Dipstick Negative (Negative); Leukocyte Esterase-Dipstick 25 /ul (Negative); Nitrite-Dipstick Negative (Negative); Occult Blood-Urine 25 /ul (Negative); Protein-Dipstick Negative (Negative); Urine Bilirubin Dipstick Negative (Negative); Urine Clarity Clear (Clear); Urine Urobilinogen Normal (Normal)
[2024-05-10 06:24] LABS: Bacteria 2+ /hpf (None Seen); Squamous Epithelial Cells - UA 25-50 SEEN /hpf (5-10); Transitional Epithelial - Ur 0-5 SEEN /hpf (0-5); White Blood Cells 10-25 SEEN /hpf (0-5)
[2024-05-10 06:25] LABS: Mucous, Urine 1+ /hpf (<or=2+)
[2024-05-10] MEDS: Ceftriaxone 1 GM/50 ML BAG IV (07:17)
--- NOTE | 2024-05-10 11:05 | PCM.HP.STD ---
HPI - General General Date of Admission: 05/10/24 Date of Service: 05/10/24 Chief Complaint: Worsening confusion HPI Narrative MOSES CRAIN, is a 89 F who presented to [facility] ED on 05/10/2024 with worsening confusion. Saw patient at bedside in the ED, and 2 daughters present. Patient was sitting up comfortably in bed, in no acute distress. She did know that she was at [facility] knew that it was April 2024. She also was able to name her 2 daughters but did state that her was her father. On discussion with family, patient has done this many times in the past few months. Daughter noted that patient appeared more confused yesterday and she was concerned for possible UTI. They took her to express care and she had a UA done that was concerning for UTI. Patient was started on Keflex and has gotten 3 doses of that thus far. Patient notably denied any dysuria. Patient lives at home with her and she apparently was more confused last night and called the police multiple times. Per reports she called for fear of safety from her significant other and stated he was yelling at her when this was not the case per other family members. On my discussion patient does not remember doing this. In the ED vital signs are stable and patient was afebrile. Labs were unremarkable. UA showed 25 leukocyte esterase, negative nitrites, 10-25 WBCs, 2+ bacteria. CT brain was unremarkable and chest x-ray was also unremarkable. Family was concerned about taking the patient home and requested that she be admitted so hospitalist was contacted for admission. Will admit the patient under observation status with plan to give patient IV antibiotics for possible UTI and have her see both therapy and case management for discussion on best plan for the patient on discharge. [facility] Medical History (Updated 05/10/24 @ 12:47 by Patricia Allen) Diverticulitis Restless legs Depression Irregular heart beat Dementia Deafness in left ear Hemorrhoids Nausea Constipation Abdominal pain Sleep apnea Anxiety Arthritis Fatigue Acute ischemic stroke Fibromyalgia Hypothyroidism Hypertension Mitral valve prolapse Home Medications ?Medication ?Instructions ?Recorded ?Last Taken ?Type cyclobenzaprine 10 mg tablet 10 mg PO QHS PRN PRN Spasms 05/27/15 Unknown History diazepam 5 mg tablet 10 mg PO QHS PRN Anxiety 05/27/15 Unknown History levothyroxine 25 mcg tablet 25 mcg PO DAILY thyroid 05/27/15 12/30/17 History 0530 methylphenidate HCl 10 mg tablet 10 mg PO BID Anxiety 05/27/15 Unknown History metoprolol succinate 50 mg 100 mg PO DAILY BP 05/27/15 12/30/17 History tablet,extended release 24 hr 0530 oxycodone-acetaminophen 5 mg-325 1 tab PO 5X/DAY pain 05/27/15 06/03/15 06:00 History mg tablet fluticasone propionate 50 1 spray NASAL DAILY PRN Nasal 12/12/17 Unknown History mcg/actuation nasal Congestion spray,suspension cephalexin 500 mg capsule 500 mg PO Q12 #14 caps 04/09/22 Unknown Rx haloperidol 0.5 mg tablet 0.5 mg PO QHS #10 tabs 09/18/23 Unknown Rx amlodipine 2.5 mg tablet 2.5 mg PO DAILY 05/10/24 Unknown History cholecalciferol (vitamin D3) 50 50 mcg PO DAILY 05/10/24 Unknown History mcg (2,000 unit) tablet (Thera-D) Allergy/AdvReac Type Severity Reaction Status Date / Time pregabalin (From Lyrica) Allergy Unknown Unknown Verified 05/10/24 05:22 neomycin Allergy HEARING Verified 05/10/24 05:22 LOSS bupropion (From Wellbutrin) AdvReac PT UNSURE Verified 05/10/24 05:22 OF REACTION ezetimibe (From Zetia) AdvReac Other Verified 05/10/24 05:22 nitrofurantoin (From AdvReac Diarrhea Verified 05/10/24 05:22 Macrobid) pentazocine lactate (From AdvReac FELT VERY Verified 05/10/24 05:22 Diane) DISCONNECTED Family History Mother No problems noted. Surgical History Cataract extraction status of right eye S/P tympanoplasty left toe surgery History of lumpectomy of both breasts H/O colonoscopy Hx of vein stripping History of partial colectomy Hx of cholecystectomy Social History Smoking Status: Never smoker second hand exposure: No alcohol intake: never substance use type: does not use caffeine: No what type of physical activity do you participate in: none frequency: does not exercise seatbelt use: always do you feel safe at home: Yes additional social history: - Moi ROS Constitutional Constitutional: Denies chills, fatigue, fever(s) or weakness Cardiovascular Cardiovascular: Denies chest pain Respiratory/Chest Respiratory/Chest: Denies shortness of breath at rest Gastrointestinal Gastrointestinal: Denies abdominal pain Genitourinary Genitourinary: Denies dysuria Vital Signs Vital Signs Vital Signs: 05/10/24 05:22 05/10/24 05:26 05/10/24 06:30 Temperature 98.4 F 98.4 F 98.4 F Temperature Source Oral Oral Oral Pulse Rate 82 81 77 Respiratory Rate 16 16 18 Blood Pressure 152/74 H 152/74 H 123/52 H Blood Pressure Mean 100 100 75 Pulse Ox 94 96 95 Oxygen Delivery Method Room Air Room Air Room Air 05/10/24 07:00 05/10/24 07:21 05/10/24 08:00 Temperature 98.2 F 98.6 F Temperature Source Oral Oral Pulse Rate 78 75 68 Respiratory Rate 16 18 16 Blood Pressure 117/72 117/72 127/61 H Blood Pressure Mean 87 87 83 Pulse Ox 98 98 95 Oxygen Delivery Method Room Air Room Air 05/10/24 09:00 Temperature Temperature Source Pulse Rate 74 Respiratory Rate 16 Blood Pressure 128/78 H Blood Pressure Mean 94 Pulse Ox 95 Oxygen Delivery Method Weight Weight: 62 kg Body Mass Index (BMI) 24.2 Physical Exam Const alert and no apparent distress Constitutional Narrative: Elderly female, thin appearing, mildly fatigued appearing, alert and oriented x 3 but with some difficulty answering more complicated questions, otherwise sitting up comfortably in bed, in no acute distress. General Appearance: cooperative and comfortable HEENT normocephalic, head/scalp atraumatic, hearing grossly normal bilaterally, nasal mucous membranes and turbinates normal and moist oral mucous membranes Eyes PERRL, EOMs intact bilaterally and conjunctivae normal Neck full ROM Chest inspection of chest normal Resp normal respiratory effort, normal air movement, no use of accessory muscles and clear to auscultation bilaterally Cardio regular rate, regular rhythm, no murmurs and peripheral pulses 2+ throughout GI normal to inspection, nondistended, normoactive bowel sounds, soft to palpation, non-tender and non-distended Back/Spine normal ROM Extremity normal to inspection, full ROM and no pedal edema Skin no rashes or lesions noted Neuro moves all extremities Speech: speech normal Motor Exam: strength 5/5 throughout Results Lab / Micro Data 05/10/24 05:39 05/10/24 05:39 Labs: Laboratory Results - last 24 hr 05/10/24 05:39: WBC 8.9, RBC 4.56, Hgb 12.8, Hct 39.1, MCV 85.7, MCH 28.1, MCHC 32.7, RDW Std Deviation 42.7, RDW Coeff of Milagros 13.7, Plt Count 234, MPV 11.0, Immature Gran % (Auto) 0.400, Neut % (Auto) 62.8, Lymph % (Auto) 27.0, [place] % (Auto) 8.0, Eos % (Auto) 1.0, Baso % (Auto) 0.8, Absolute Neuts (auto) 5.6, Absolute Lymphs (auto) 2.40, Nucleated RBC % 0, Sodium 140, Potassium 3.4 L, Chloride 108 H, Carbon Dioxide 27.0, Anion Gap 5, BUN 20 H, Creatinine 0.90, Estim Creat Clear Calc 35.05, Est GFR (MDRD) Af Amer 76, Est GFR (MDRD) Non-Af 63, BUN/Creatinine Ratio 22.2 H, Glucose 141 H, Calcium 10.0, Total Bilirubin 0.80, AST 11 L, ALT 17, Alkaline Phosphatase 82, Total Protein 7.3, Albumin 3.9, Globulin 3.4, Albumin/Globulin Ratio 1.1 05/10/24 05:50: Urine Color Straw, Urine Clarity Clear, Urine pH 6.0, Ur Specific [place] 1.010, Urine Protein Negative, Urine Glucose (UA) Normal, Urine Ketones Negative, Urine Occult Blood 25 H, Urine Nitrite Negative, Urine Bilirubin Negative, Urine Urobilinogen Normal, Ur Leukocyte Esterase 25 H, Urine RBC 0 SEEN, Urine WBC 10-25 SEEN, Ur Squamous Epith Cells 25-50 SEEN, Ur Transition Epith Cell 0-5 SEEN, Urine Bacteria 2+, Urine Mucus 1+ Micro: Microbiology 05/10/24 05:39 Mucosa - Nose SARS-CoV-2, Influenza & RSV (PCR) - Final Imaging Radiology Impression Brain CT 05/10/24 05:33 IMPRESSION: Atrophy with chronic small vessel ischemic changes. No acute intracranial abnormality. Electronically Signed: Eliezer Abad MD at 7:44 EST , Chest X-Ray 05/10/24 05:34 IMPRESSION: Hyperinflation. The lungs are clear. Electronically Signed: Jared Mercedes MD at 8:27 EST , Assessment & Plan Assessment/Plan (1) Confusion: (2) Acute UTI: PLAN: Plan Patient is an 89-year-old female who presented [facility] ED on 05/10/2024 with worsening confusion and concern for UTI. 1. Acute metabolic versus toxic encephalopathy ? Admit under observation status to [facility]. Have concern that patient's home medications of oxycodone?acetaminophen 5 times daily and diazepam 10 mg at night may be contributing to her altered mentation. Possible UTI could be contributing. Patient may also have some degree of underlying cognitive impairment. Will treat UTI as below and continue home medications for now. Will monitor patient closely overnight. 2. Concern for UTI ? UA showed 25 leukocyte esterase, negative nitrates, 10-25 WBCs, 2+ bacteria. Urine culture pending. No signs of systemic infection. Will treat with IV ceftriaxone for now. 3. Chronic pain syndrome ? Reviewed OARRS and patient has been filling oxycodone?acetaminophen regularly. Will continue home oxycodone?acetaminophen 5 times daily though I will discuss with the patient's family prior to discharge about potentially decreasing this dose as able. 4. Anxiety ? Will continue home diazepam 10 mg at night as needed. However, will discuss with patient's family about trying to wean off this medication going forward as well. 5. Hypertension ? Continue home Toprol and amlodipine. 6. Hypothyroidism ? Continue home Synthroid. DVT prophylaxis: Lovenox CODE STATUS: Full code, verified Expected disposition: Home, 1 to 2 days Total clinical time spent by myself addressing the patient's medical issues, reviewing all the data, and collaborating with patient's care team: 55 minutes. Charges/Coding Visit Charges Inpatient E&M: 92170 Init Hosp L2
--- NOTE | 2024-05-10 13:24 | NURSING ---
pt arrived from er with and daughter. nursing entered room and stated room is cold. nursing stated i will turn up the heat and get a warm blanket for pt. it will take a bit for room to warm up. pt stated she is cold and that this was unacceptable that room was not warmed before pt came to room. nursing gave a warm blanket to pt. daughter then stated that pt is hungry, needs to eat. nursing explained that as soon as admit questions are completed nursing can look at the orders for diet. nursing asked pt for Allergy list, pt unable to answer, daughter asked for allergy list, daughter stated that all was in computer and would be correct. nursing explained that going over allergies to make sure that are correct for the safety of the patient. patient then stated that if the room does not get warmer her daughter would take her home. nursing then called maintenance to check temp of room. admit questions completed and orders checked. orders were for the pt to be npo. explained to pt and family that dr wanted her to be npo. daughter stated that she maight as well take her home because she was not going to leave her mom in a cold room, nothing to eat or drink, and not safe. explained that nursing would call dr to check the diet order. nursing also explained that it was her right to leave and take pt home if she wanted, she just had to let me know what her plans were. dr notified and diet order changed. maintenance also notified that tv sound did not turn up louder.
--- NOTE | 2024-05-10 15:06 | CASEMGMT ---
Entered Pt room, pt sitting up in bed, sitting at bedside. Pt had a hard time hearing, stated her battery to her hearing aides. Stated ok for RN DICK to call and speak with her daughter about discharge plan.
--- NOTE | 2024-05-10 15:11 | CASEMGMT ---
JENNA JENNINGS received report Pt and family requesting to speak with lead case manager. JENNA JENNINGS into pt room, Pt lying in bed in no distress. sitting at bedside. Pt states cannot hear JENNA JENNINGS, battery in her hearing aide . Pt states ok to call daughter to discuss DC planning with her. JENNA JENNINGS called and spoke with daughter, she asked if JENNA JENNINGS can set up HHC to receive services every night to help with cleaning and assisting with daily living activities. JENNA JENNINGS explained this does not qualify for HH, the family would be responsible for setting up private duty aides and insurance does not cover this. Daughter stated she had the list, denies any additional questions or concerns at this time.
--- NOTE | 2024-05-10 19:27 | CASEMGMT ---
Care Management Face to Face with patient for initial transition planning/care coordination assessment.? This blurb writer introduced self and role at [facility]. Patient lying in bed, alert and oriented. Patient willing to participate in assessment and is able to answer all questions appropriately.? Patients daughter at bedside and permission given for her to participate in assessment.? Care providers, pharmacy, and demographics verified. Admitting Diagnosis: Acute UTI Other diagnosis history: dementia, anxiety, diverticulitis, arthritis PCP: ?Dr. Palmer Specialists: None Preferred Pharmacy: [facility] Insurance: medicare Prescription Benefit:? yes Living Will/HPOA: patient has HPOA and Living Will, daughter to look for copies and bring to hospital LNOK: Living Arrangements:? lives with in a one-story home.? Daughter reports patient able to take care of own ADLS, daughter brings frozen meals? Transportation: drives, daughters drives patient as needed HHC: none SNF/Rehab: none Community Resources: none Behavioral Health History:? none Patient goals: Patient wishes to discharge home.? Family interested in home health versus private duty aides. telegraph office route aide list provided. Disposition Plan: CM to follow for discharge planning needs that may arise Ambika Choi MSW, HSPT TUTOR
[2024-05-10] MEDS: MELATONIN 3 MG TABLET PO (22:30)
[2024-05-10] MEDS: oxyCODONE 5 MG Tablet PO (22:30)
[2024-05-10] MEDS: diazePAM 5 MG Tablet 10 MG PO (22:30)
[2024-05-11 04:12] VITALS: BP 126/80; PULSE 78; RESP 14; TEMP 36.5; O2SAT 96
[2024-05-11] MEDS: oxyCODONE 5 MG Tablet PO ×2 (06:47→10:11)
[2024-05-11] MEDS: Levothyroxine 25 MCG TABLET PO (06:48)
[2024-05-11 07:02] LABS: Hematocrit 39.9 % (37-47); Mean Corp Hgb Conc 32.6 g/dL (32-36); Mean Corpuscular Hgb 28.5 pg (27.0-32.0); Mean Corpuscular Volume 87.5 fL (81-99); Platelet Count 207 K/mm3 (150-450); RBC Distribution Width CV 13.8 % (11.6-14.6); RBC Distribution Width SD 44.2 fl (35.1-43.9); Red Blood Count 4.56 M/mm3 (4.2-5.4); White Blood Count 6.3 K/mm3 (4.4-11.0)
[2024-05-11 07:38] LABS: Anion Gap 3 (5-15); BUN 15 mg/dL (7-18); BUN/Creat Ratio 19.9 RATIO (10-20); Calcium,Total 10.1 mg/dL (8.5-10.1); Chloride 110 mmol/L (98-107); Creatinine, Serum 0.75 mg/dL (0.55-1.02); EST Glomerular Filtration Rate 77 mL/min (>60); Est Glom Filt Rate - Afr Amer 93 mL/min (>60); Estimated Creatinine Clearance 37.71 ml/min; Glucose 104 mg/dL (74-106); Potassium 3.7 mmol/L (3.5-5.1); Sodium Level 140 mmol/L (136-145)
[2024-05-11 08:17] VITALS: BP 115/75; PULSE 78; RESP 16; TEMP 36.6; O2SAT 97
[2024-05-11 09:10] VITALS: BP 115/75; PULSE 78
[2024-05-11] MEDS: Metoprolol(XL)Succ 100 MG Tablet PO (09:10)
[2024-05-11] MEDS: amLODIPine 2.5 MG Tablet PO (09:10)
[2024-05-11] MEDS: Ceftriaxone 1 GM/50 ML BAG IV (09:10)
[2024-05-11] MEDS: Cholecalciferol (VIT D3) 25 MCG TABLET (1,000 UNITS) 50 MCG PO (09:10)
[2024-05-11] MEDS: Enoxaparin 40 MG/0.4 ML Syringe SC (09:11)
[2024-05-11] MEDS: Ensure Plus High Protein 120 ML LIQUID PO (09:11)
--- NOTE | 2024-05-11 12:00 | DCINST_ITS ---
Discharge Instructions Diet Discharge Diet: No restrictions DC O2, CPAP, BIPAP needs Home O2 Discharge instructions: No Dressing / Incision Discharge Activity: No Restrictions Follow Up Care Test Results: Test results from this visit will be discussed in further detail at your follow- up appointment, if applicable. Discharge Plan Admission Admit Date/Time: 05/10/24 11:05 Primary Reason for Your Visit: worsening confusion Attending Provider: Archie Stoll Primary Care Provider: Ana Palmer Instructions Patient Instructions: Urinary Tract Infections in Women, ED Confusion Additional Instructions / Restrictions: ? Take Bactrim 1 tablet for 3 more days to complete course of antibiotics for your UTI. ? Strongly recommend discussing with your primary care doctor about the following medications: Diazepam, oxycodone?acetaminophen and methylphenidate. All of these medications can contribute to confusion and delirium. Discharge Orders/Prescriptions Prescriptions: New sulfamethoxazole-trimethoprim [Bactrim DS] 800-160 mg tablet 1 tab PO DAILY 3 Days Qty: 3 0RF Continued cyclobenzaprine 10 MG tablet 10 mg PO QHS PRN PRN (Reason: Spasms) methylphenidate HCl 10 MG tablet 10 mg PO BID levothyroxine 25 MCG tablet 25 mcg PO DAILY oxycodone-acetaminophen 1 TABLET tablet 1 tab PO 5X/DAY diazepam 5 MG tablet 10 mg PO QHS PRN (Reason: Anxiety) metoprolol succinate 50 MG tablet 100 mg PO DAILY fluticasone propionate 1 SPRAY spray,suspension 1 spray NASAL DAILY PRN (Reason: Nasal Congestion) amlodipine 2.5 mg tablet 2.5 mg PO DAILY cholecalciferol (vitamin D3) [Thera-D] 50 mcg (2,000 unit) tablet 50 mcg PO DAILY Discontinued cephalexin 500 mg capsule 500 mg PO Q12 Qty: 14 0RF haloperidol 0.5 mg tablet 0.5 mg PO QHS Qty: 10 0RF Referrals / Follow Up: Ana Palmer MD [Primary Care Provider] - 1 Week Disposition Disposition (needs filled in before D/C Order can be placed): Home, Self Care
--- NOTE | 2024-05-11 12:06 | PCM.DC.SUM ---
Providers Date of Admission: 05/10/24 Date of Discharge: 05/11/24 Primary Care Physician: Dr. Ana Palmer MD Reason For Visit: ALTERED MENTATION W/ UTI Diagnosis Discharge Diagnosis (1) Confusion: Status: Acute Code(s): R41.0 - Disorientation, unspecified (2) Acute UTI: Status: Acute Code(s): N39.0 - Urinary tract infection, site not specified Medications at Discharge Home Medications cyclobenzaprine 10 mg tablet 10 mg PO QHS PRN PRN Spasms 05/27/15 diazepam 5 mg tablet 10 mg PO QHS PRN Anxiety 05/27/15 levothyroxine 25 mcg tablet 25 mcg PO DAILY thyroid 05/27/15 methylphenidate HCl 10 mg tablet 10 mg PO BID Anxiety 05/27/15 metoprolol succinate 50 mg tablet,extended release 24 hr 100 mg PO DAILY BP 05/27/15 oxycodone-acetaminophen 5 mg-325 mg tablet 1 tab PO 5X/DAY pain 05/27/15 fluticasone propionate 50 mcg/actuation nasal spray,suspension 1 spray NASAL DAILY PRN Nasal Congestion 12/12/17 amlodipine 2.5 mg tablet 2.5 mg PO DAILY 05/10/24 cholecalciferol (vitamin D3) 50 mcg (2,000 unit) tablet (Thera-D) 50 mcg PO DAILY 05/10/24 sulfamethoxazole 800 mg-trimethoprim 160 mg tablet (Bactrim DS) 1 tab PO DAILY 3 days #3 tabs 05/11/24 Hospital Course Operations None Procedures - (CT brain, chest x-ray) Summary of Care Provided Minutes Spent on Discharge: 35 Hospital Course: Patient is an 89-year-old female who presented [facility] ED on 05/10/2024 with worsening confusion and concern for UTI. Short hospital course as noted below. Patient discharged home in stable condition on 05/11. 1. Acute metabolic versus toxic encephalopathy, improved ? Have concern that patient's home medications of oxycodone?acetaminophen 5 times daily, diazepam 10 mg at night and methylphenidate 10 mg twice daily are contributing to her altered mentation. Possible UTI could be contributing. Patient may also have some degree of underlying cognitive impairment. Patient alert and oriented x 3 on day of discharge with no significant confusion noted. Discussed with patient and family and recommended that she follow-up closely with her primary care doctor to discuss either decreasing the dosing of the medications listed above versus weaning off of them and switching to alternative medications with fewer side effects. Treating UTI on discharge as noted below. 2. Concern for UTI ? UA showed 25 leukocyte esterase, negative nitrates, 10-25 WBCs, 2+ bacteria. Urine culture pending on discharge. No signs of systemic infection. Treated with IV ceftriaxone while inpatient and will discharge on Bactrim DS once daily for 3 days. Noted that I will call the patient if urine culture grows bacteria that Bactrim does not cover. 3. Chronic pain syndrome/fibromyalgia ? Reviewed OARRS and patient has been filling oxycodone?acetaminophen regularly. Patient notes that this medication is for her fibromyalgia, denies any specific consistent areas of pain. Concerns with this medication discussed as above. 4. Anxiety ? Will continue home diazepam 10 mg at night as needed. Concerns with this medication discussed as above. 5. Hypertension ? Continue home Toprol and amlodipine. 6. Hypothyroidism ? Continue home Synthroid. Total clinical time spent by myself addressing the patient's medical issues, reviewing all the data, and collaborating with patient's care team: 35 minutes. Physical Exam Const alert and no apparent distress Constitutional Narrative: Elderly female, thin appearing, mildly fatigued appearing, alert and oriented x 3 but with some difficulty answering more complicated questions, otherwise sitting up comfortably in bed, in no acute distress. Stable. General Appearance: cooperative and comfortable HEENT normocephalic, head/scalp atraumatic, hearing grossly normal bilaterally, nasal mucous membranes and turbinates normal and moist oral mucous membranes Eyes PERRL, EOMs intact bilaterally and conjunctivae normal Neck full ROM Chest inspection of chest normal Resp normal respiratory effort, normal air movement, no use of accessory muscles and clear to auscultation bilaterally Cardio regular rate, regular rhythm, no murmurs and peripheral pulses 2+ throughout GI normal to inspection, nondistended, normoactive bowel sounds, soft to palpation, non-tender and non-distended Back/Spine normal ROM Extremity normal to inspection, full ROM and no pedal edema Skin no rashes or lesions noted Neuro moves all extremities Speech: speech normal Motor Exam: strength 5/5 throughout Weight / BMI Weight Weight: 58.06 kg Body Mass Index (BMI) 23.0 ABG / Lab / Microbiology Data 05/11/24 06:33 05/11/24 06:33 Laboratory: Laboratory Results - last 24 hr 05/11/24 06:33: WBC 6.3, RBC 4.56, Hgb 13.0, Hct 39.9, MCV 87.5, MCH 28.5, MCHC 32.6, RDW Std Deviation 44.2 H, RDW Coeff of Milagros 13.8, Plt Count 207, MPV 11.0, Sodium 140, Potassium 3.7, Chloride 110 H, Carbon Dioxide 28.0, Anion Gap 3 L, BUN 15, Creatinine 0.75, Estim Creat Clear Calc 37.71, Est GFR (MDRD) Af Amer 93, Est GFR (MDRD) Non-Af 77, BUN/Creatinine Ratio 19.9, Glucose 104, Calcium 10.1 Microbiology: Microbiology 05/10/24 05:50 Urine, Catheterized Urine Culture - Preliminary Gram negative jitendra 05/10/24 05:39 Mucosa - Nose SARS-CoV-2, Influenza & RSV (PCR) - Final D/C Instructions Discharge Diet: No restrictions DC O2, CPAP, BIPAP Needs Home O2 Discharge instructions: No Meaningful Use Info Meaningful Use Meaningful Use Diagnoses (Choose all that apply): None applicable Ischemic Stroke Statin Dosing Therapy Reference: STATIN DOSE THERAPY REFERENCE: * Patients > 75 years receive moderate or high dose statin therapy. * Patients 75 years or YOUNGER should receive HIGH intensity statin dose unless contraindicated. You will be required to document reason for non-treatment if statin daily dose does not meet guidelines. HIGH DOSE STATIN THERAPY DAILY Atorvastatin > than or = to 40 mg Rosuvastatin > than or = to 20 mg Amlodipine + Atorvastatin > than or = to 2.5/40 mg Ezetimibe + Simvastatin 10/80 mg Simvastatin 80mg Discharge Plan Admission Admit Date/Time: 05/10/24 11:05 Primary Reason for Your Visit: worsening confusion Attending Provider: Archie Stoll Primary Care Provider: Ana Palmer Instructions Patient Instructions: Urinary Tract Infections in Women, ED Confusion Additional Instructions / Restrictions: ? Take Bactrim 1 tablet for 3 more days to complete course of antibiotics for your UTI. ? Strongly recommend discussing with your primary care doctor about the following medications: Diazepam, oxycodone?acetaminophen and methylphenidate. All of these medications can contribute to confusion and delirium. Discharge Orders/Prescriptions Prescriptions: New sulfamethoxazole-trimethoprim [Bactrim DS] 800-160 mg tablet 1 tab PO DAILY 3 Days Qty: 3 0RF Continued cyclobenzaprine 10 MG tablet 10 mg PO QHS PRN PRN (Reason: Spasms) methylphenidate HCl 10 MG tablet 10 mg PO BID levothyroxine 25 MCG tablet 25 mcg PO DAILY oxycodone-acetaminophen 1 TABLET tablet 1 tab PO 5X/DAY diazepam 5 MG tablet 10 mg PO QHS PRN (Reason: Anxiety) metoprolol succinate 50 MG tablet 100 mg PO DAILY fluticasone propionate 1 SPRAY spray,suspension 1 spray NASAL DAILY PRN (Reason: Nasal Congestion) amlodipine 2.5 mg tablet 2.5 mg PO DAILY cholecalciferol (vitamin D3) [Thera-D] 50 mcg (2,000 unit) tablet 50 mcg PO DAILY Discontinued cephalexin 500 mg capsule 500 mg PO Q12 Qty: 14 0RF haloperidol 0.5 mg tablet 0.5 mg PO QHS Qty: 10 0RF Referrals / Follow Up: Ana Palmer MD [Primary Care Provider] - 1 Week Disposition Disposition (needs filled in before D/C Order can be placed): Home, Self Care Charges/Coding Visit Charges Inpatient E&M: 15725 Disch Hosp >30min
--- NOTE | 2024-05-11 12:09 | CASEMGMT ---
Met with patient, her , and her son to complete NEAL form. NEAL form explained to all who voiced understanding and signed form. Original form placed in pt?s chart and copy provided to patient. Arianne Bunch, Discharge Planning Asst
== END 2024-05-11 13:27 | disposition home or self-care (01) ==
LOC: ED 07:45 → MS3 11:48
PROVIDERS: Admitting Provider Hospitalist; Emergency Provider Emergency Medicine; PCP Internal Medicine; Visit Provider Hospitalist
DX: N39.0 Urinary tract infection, site not specified (principal); G89.4 Chronic pain syndrome; R41.0 Disorientation, unspecified; F41.9 Anxiety disorder, unspecified; M79.7 Fibromyalgia; Z79.891 Long term (current) use of opiate analgesic; E03.9 Hypothyroidism, unspecified; Z79.890 Hormone replacement therapy; I10 Essential (primary) hypertension; R44.3 Hallucinations, unspecified; Z79.899 Other long term (current) drug therapy; F32.A Depression, unspecified
CPT/HCPCS: 36415; 70450; 71046; 80048; 80053; 81001; 85025; 85027; 87077; 87086; 87088; 87186; 87631; 93005; 96365; 96366; 97802; 99221; 99285; A4216; G0378

== ENCOUNTER 2024-05-22 23:27 | Emergency (ER) | payer MEDICARE, BC, SELFPAY ==
[2024-05-22 23:27] VITALS: BP 150/89; PULSE 79; RESP 16; TEMP 36.6; O2SAT 96; BMI 24.2
[2024-05-23 00:05] VITALS: BP 150/89; PULSE 79; RESP 16; TEMP 36.6; O2SAT 96
[2024-05-23 00:09] LABS: Mucous, Urine 0 SEEN /hpf (<or=2+); Red Blood Cells-Urine 0 SEEN /hpf (0-5); Squamous Epithelial Cells - UA 0 SEEN /hpf (5-10)
[2024-05-23 00:12] LABS: Color, Urine Yellow (Yellow); Glucose, Dipstick Normal (Normal); Ketone-Dipstick Negative (Negative); Leukocyte Esterase-Dipstick 500 /ul (Negative); Nitrite-Dipstick Positive (Negative); Occult Blood-Urine 25 /ul (Negative); Protein-Dipstick 15 mg/dl (Negative); Specific Gravity, Urine 1.015 (1.002-1.030); Urine Bilirubin Dipstick Negative (Negative); Urine Clarity Clear (Clear); Urine Urobilinogen Normal (Normal)
[2024-05-23 00:20] LABS: Bacteria 3+ /hpf (None Seen); White Blood Cells 50-100 SEEN /hpf (0-5)
[2024-05-23 01:00] VITALS: BP 154/92; PULSE 77; RESP 16; TEMP 36.9; O2SAT 97
[2024-05-23 01:13] VITALS: BP 154/92; PULSE 77; RESP 16; TEMP 36.9; O2SAT 97
--- NOTE | 2024-05-23 01:18 | EDS_ITS ---
HPI History of Present Illness Chief Complaint: Complaint Informant: patient and family Narrative Narrative: Patient is an 89-year-old female with past medical history of hypertension hypothyroidism fibromyalgia and recent admission to the hospital secondary to UTI. Family states that the only symptoms of the most recent UTI were confusion. The patient states she took Bactrim and finish the medication as directed. She states that she felt completely better after taking the medication. However today she began with painful urination. With concern for return of infection she was brought in for evaluation. [facility] Medical History Hx: UTI (urinary tract infection) Diverticulitis Restless legs Depression Irregular heart beat Dementia Deafness in left ear Hemorrhoids Nausea Constipation Abdominal pain Sleep apnea Anxiety Arthritis Fatigue Acute ischemic stroke Fibromyalgia Hypothyroidism Hypertension Mitral valve prolapse Home Medications ?Medication ?Instructions ?Recorded ?Last Taken ?Type cyclobenzaprine 10 mg tablet 10 mg PO QHS PRN PRN Spasms 05/27/15 Unknown History diazepam 5 mg tablet 10 mg PO QHS PRN Anxiety 05/27/15 Unknown History levothyroxine 25 mcg tablet 25 mcg PO DAILY thyroid 05/27/15 12/30/17 History 0530 methylphenidate HCl 10 mg tablet 10 mg PO BID Anxiety 05/27/15 Unknown History metoprolol succinate 50 mg 100 mg PO DAILY BP 05/27/15 12/30/17 History tablet,extended release 24 hr 0530 oxycodone-acetaminophen 5 mg-325 1 tab PO 5X/DAY pain 05/27/15 05/23/24 History mg tablet fluticasone propionate 50 1 spray NASAL DAILY PRN Nasal 12/12/17 Unknown History mcg/actuation nasal Congestion spray,suspension amlodipine 2.5 mg tablet 2.5 mg PO DAILY 05/10/24 Unknown History cholecalciferol (vitamin D3) 50 50 mcg PO DAILY 05/10/24 Unknown History mcg (2,000 unit) tablet (Thera-D) ciprofloxacin HCl 250 mg tablet 250 mg PO BID 7 days #14 tabs 05/23/24 Unknown Rx (Cipro) phenazopyridine 200 mg tablet 200 mg PO TID 2 days #6 tabs 05/23/24 Unknown Rx (Pyridium) Allergy/AdvReac Type Severity Reaction Status Date / Time pregabalin (From Lyrica) Allergy Unknown Unknown Verified 05/22/24 23:29 neomycin Allergy HEARING Verified 05/22/24 23:29 LOSS bupropion (From Wellbutrin) AdvReac PT UNSURE Verified 05/22/24 23:29 OF REACTION ezetimibe (From Zetia) AdvReac Other Verified 05/22/24 23:29 nitrofurantoin (From AdvReac Diarrhea Verified 05/22/24 23:29 Macrobid) pentazocine lactate (From AdvReac FELT VERY Verified 05/22/24 23:29 Talwin) DISCONNECTED Family History Mother No problems noted. Surgical History Cataract extraction status of right eye S/P tympanoplasty left toe surgery History of lumpectomy of both breasts H/O colonoscopy Hx of vein stripping History of partial colectomy Hx of cholecystectomy Social History Smoking Status: Never smoker second hand exposure: No alcohol intake: never substance use type: does not use caffeine: No what type of physical activity do you participate in: none frequency: does not exercise seatbelt use: always do you feel safe at home: Yes additional social history: - Mio ROS ROS ED Constitutional Constitutional ED: Denies chills or fever(s) ENT ENT ED: Denies sore throat Cardiovascular Cardiovascular: Denies chest pain Respiratory/Chest Respiratory/Chest: Denies cough or dyspnea Gastrointestinal Gastrointestinal: Reports abdominal pain; Denies diarrhea, nausea or vomiting Genitourinary Genitourinary ED: Reports dysuria and urinary frequency Musculoskeletal Musculoskeletal: Denies back pain Integumentary Denies rash Neurologic Neurologic: Denies headache(s) Hematologic/Lymphatic Hematologic/Lymphatic: Denies easy bleeding or easy bruising EXAM Physical Exam Const Vital Signs: 05/22/24 23:27 05/23/24 00:05 05/23/24 01:00 Temperature 97.8 F 97.8 F 98.5 F Temperature Source Oral Oral Oral Pulse Rate 79 79 77 Respiratory Rate 16 16 16 Blood Pressure 150/89 H 150/89 H 154/92 H Blood Pressure Mean 109 109 112 Pulse Ox 96 96 97 Oxygen Delivery Method Room Air Room Air Room Air Positive well nourished and well developed General Appearance ED: well developed; Negative for pallor HEENT HEENT Narrative: Normocephalic atraumatic Eyes PERRL and EOMs intact bilaterally General Eye ED: Negative for scleral icterus Neck supple Neck Narrative: No nuchal rigidity or meningeal signs Resp normal respiratory effort and clear to auscultation bilaterally Cardio regular rate and regular rhythm GI non-distended and no masses GI Narrative: Soft and nondistended with normal active bowel sounds. There is mild pain with palpation in the suprapubic region. No voluntary guarding or rigidity or pulsatile mass Auscultation: normoactive bowel sounds Palpation: soft Extremity normal to inspection Neuro oriented x3, CN's II-XII intact bilaterally and no sensory deficits noted Sensorium / Orientation: alert Motor Exam: strength 5/5 throughout Psych mental status grossly normal Skin no rashes or lesions noted General Skin Exam: Negative for jaundice or pallor MDM MDM MDM Narrative Medical decision making narrative: Patient presented to the ER mildly hypertensive but has a past medical history of this and otherwise with stable vitals. She has had 1 day of abdominal pain dysuria and frequency most consistent with UTI. Based on her overall stable vitals and normal mental status I have low concern for systemic infection. Therefore I felt no need for laboratory studies other than a UA. UA showed +3 bacteria with 50-100 white cells and positive nitrates with no skin contamination most consistent with UTI. I discussed the case with the patient and family about further blood work or potential readmission based on her recent need for placement in the hospital from previous UTI. The patient is not confused and daughter is present and they feel that with stable vitals and normal mental status she can be treated at home. Her previous culture was reviewed and it is pansensitive. However as the infection has returned relat ively quickly after the last round of antibiotics I will change antibiotic to Cipro which has a low MOY and patient can await culture results at home while she is being treated with antibiotic. History & Record Review Discussion w/independent historian: Patient and Family Lab Data Attestation: I reviewed the patient's lab results. Labs: Laboratory Results - last 24 hr 05/23/24 00:05 Urine Color Yellow Urine Clarity Clear Urine pH 6.0 Ur Specific [place] 1.015 Urine Protein 15 H Urine Glucose (UA) Normal Urine Ketones Negative Urine Occult Blood 25 H Urine Nitrite Positive H Urine Bilirubin Negative Urine Urobilinogen Normal Ur Leukocyte Esterase 500 H Urine RBC 0 SEEN Urine WBC 50-100 SEEN Ur Squamous Epith Cells 0 SEEN Urine Bacteria 3+ Urine Mucus 0 SEEN Discharge Plan Triage Chief Complaint: Complaint ED Provider: Boris Stewart Dx/Rx/DC Orders Clinical Impression: UTI (urinary tract infection), Hypertension, Hypothyroidism, Fibromyalgia Instructions: Urinary Tract Infections in Women Prescriptions: New ciprofloxacin HCl [Cipro] 250 mg tablet 250 mg PO BID 7 Days Qty: 14 0RF phenazopyridine [Pyridium] 200 mg tablet 200 mg PO TID 2 Days Qty: 6 0RF No Action cyclobenzaprine 10 MG tablet 10 mg PO QHS PRN PRN (Reason: Spasms) methylphenidate HCl 10 MG tablet 10 mg PO BID levothyroxine 25 MCG tablet 25 mcg PO DAILY oxycodone-acetaminophen 1 TABLET tablet 1 tab PO 5X/DAY diazepam 5 MG tablet 10 mg PO QHS PRN (Reason: Anxiety) metoprolol succinate 50 MG tablet 100 mg PO DAILY fluticasone propionate 1 SPRAY spray,suspension 1 spray NASAL DAILY PRN (Reason: Nasal Congestion) amlodipine 2.5 mg tablet 2.5 mg PO DAILY cholecalciferol (vitamin D3) [Thera-D] 50 mcg (2,000 unit) tablet 50 mcg PO DAILY Primary Care Provider: Ana Palmer Referrals: Ana Palmer MD [Primary Care Provider] - Print Language: Upper Sorbian Disposition Disposition: Home, Self Care
[2024-05-23] MEDS: Phenazopyridine 95 MG Tablet 190 MG PO (01:40)
[2024-05-23] MEDS: Ciprofloxacin 250 MG Tablet PO (01:40)
== END 2024-05-23 01:41 | disposition home or self-care (01) ==
PROVIDERS: Emergency Provider Emergency Medicine; PCP Internal Medicine; Visit Provider Emergency Medicine
DX: N39.0 Urinary tract infection, site not specified (principal); M79.7 Fibromyalgia; I10 Essential (primary) hypertension; E03.9 Hypothyroidism, unspecified; G47.30 Sleep apnea, unspecified; Z79.899 Other long term (current) drug therapy
CPT/HCPCS: 81001; 87077; 87086; 87088; 87186; 99283

== ENCOUNTER 2024-09-10 13:52 | Emergency (ER) | payer MEDICARE, BC, SELFPAY ==
[2024-09-10] VITALS (9 sets, daily range): BP systolic 117–137; BP diastolic 67–82; PULSE 70–81; RESP 13–19; TEMP 36.6; O2SAT 94–96
--- NOTE | 2024-09-10 14:22 | EX.ED.DYSGE1 ---
HPI History of Present Illness Chief Complaint: Complaint Informant: patient and family Onset/Context/Timing Onset: Days Context: Gradual Onset Timing: Continuous Quality: Discomfort Location: Urination Worsened by: Nothing Relieved by: Nothing Narrative Narrative: Patient presents with urinary tract infection. Family reports the patient has been getting more confused. Family states patient has acted confused with prior urinary tract infections. Patient states she does have some discomfort with urination. Patient admits to some hematuria that she noticed today. Patient denies any fevers or chills. Patient denies any pain in her back. Patient denies any nausea or vomiting. Patient does admit to a headache. Patient also admits to some rhinorrhea. [facility] Medical History Hx: UTI (urinary tract infection) Diverticulitis Restless legs Depression Irregular heart beat Dementia Deafness in left ear Hemorrhoids Nausea Constipation Abdominal pain Sleep apnea Anxiety Arthritis Fatigue Acute ischemic stroke Fibromyalgia Hypothyroidism Hypertension Mitral valve prolapse Home Medications ?Medication ?Instructions ?Recorded ?Last Taken ?Type cyclobenzaprine 10 mg tablet 10 mg PO QHS PRN PRN Spasms 05/27/15 Unknown History diazepam 5 mg tablet 10 mg PO QHS PRN Anxiety 05/27/15 Unknown History levothyroxine 25 mcg tablet 25 mcg PO DAILY thyroid 05/27/15 12/30/17 History 0530 methylphenidate HCl 10 mg tablet 10 mg PO BID Anxiety 05/27/15 Unknown History metoprolol succinate 50 mg 100 mg PO DAILY BP 05/27/15 12/30/17 History tablet,extended release 24 hr 0530 oxycodone-acetaminophen 5 mg-325 1 tab PO 5X/DAY pain 05/27/15 05/23/24 History mg tablet fluticasone propionate 50 1 spray NASAL DAILY PRN Nasal 12/12/17 Unknown History mcg/actuation nasal Congestion spray,suspension amlodipine 2.5 mg tablet 2.5 mg PO DAILY 05/10/24 Unknown History cholecalciferol (vitamin D3) 50 50 mcg PO DAILY 05/10/24 Unknown History mcg (2,000 unit) tablet (Thera-D) ciprofloxacin HCl 250 mg tablet 250 mg PO BID 7 days #14 tabs 05/23/24 Unknown Rx (Cipro) phenazopyridine 200 mg tablet 200 mg PO TID 2 days #6 tabs 05/23/24 Unknown Rx (Pyridium) Allergy/AdvReac Type Severity Reaction Status Date / Time pregabalin (From Lyrica) Allergy Unknown Unknown Verified 09/10/24 13:56 neomycin Allergy HEARING Verified 09/10/24 13:56 LOSS bupropion (From Wellbutrin) AdvReac PT UNSURE Verified 09/10/24 13:56 OF REACTION ezetimibe (From Zetia) AdvReac Other Verified 09/10/24 13:56 nitrofurantoin (From AdvReac Diarrhea Verified 09/10/24 13:56 Macrobid) pentazocine lactate (From AdvReac FELT VERY Verified 09/10/24 13:56 Talwin) DISCONNECTED Family History Mother No problems noted. Surgical History Cataract extraction status of right eye S/P tympanoplasty left toe surgery History of lumpectomy of both breasts H/O colonoscopy Hx of vein stripping History of partial colectomy Hx of cholecystectomy Social History Smoking Status: Never smoker second hand exposure: No alcohol intake: never substance use type: does not use caffeine: No what type of physical activity do you participate in: none frequency: does not exercise seatbelt use: always do you feel safe at home: Yes additional social history: - Moi ROS ROS ED Constitutional Constitutional ED: Denies chills or fever(s) Eyes Eyes: Denies blurry vision or change in vision ENT ENT ED: Reports rhinorrhea; Denies sore throat Cardiovascular Cardiovascular: Denies chest pain or palpitations Respiratory/Chest Respiratory/Chest: Reports cough; Denies dyspnea Gastrointestinal Gastrointestinal: Denies nausea or vomiting Genitourinary Genitourinary ED: Reports dysuria and hematuria Musculoskeletal Musculoskeletal: Denies back pain or neck pain Integumentary Denies abscess or rash Neurologic Neurologic: Reports headache(s); Denies weakness Allergic/Immunologic Allergic/Immunologic ED: Denies mouth swelling or urticaria EXAM Physical Exam Const Vital Signs: 09/10/24 13:53 09/10/24 13:55 09/10/24 14:39 Temperature 97.9 F 97.9 F Temperature Source Oral Oral Pulse Rate 81 81 Respiratory Rate 18 16 Blood Pressure 137/71 H 131/71 H Blood Pressure Mean 93 91 Pulse Ox 96 96 Oxygen Delivery Method Room Air Room Air Room Air 09/10/24 14:55 09/10/24 15:00 09/10/24 15:52 Temperature 97.9 F 97.9 F Temperature Source Oral Oral Pulse Rate 81 70 Respiratory Rate 16 16 Blood Pressure 131/71 H 123/75 H 123/75 H Blood Pressure Mean 91 91 91 Pulse Ox 94 96 Oxygen Delivery Method Room Air Room Air 09/10/24 16:00 09/10/24 17:00 09/10/24 17:00 Temperature 97.9 F 97.9 F Temperature Source Oral Oral Pulse Rate 76 78 Respiratory Rate 13 16 Blood Pressure 123/75 H 117/67 117/67 Blood Pressure Mean 91 83 83 Pulse Ox 96 96 Oxygen Delivery Method 09/10/24 17:59 09/10/24 18:39 Temperature 97.9 F 97.9 F Temperature Source Oral Pulse Rate 75 74 Respiratory Rate 19 H 16 Blood Pressure 127/82 H 119/72 Blood Pressure Mean 97 87 Pulse Ox 96 95 Oxygen Delivery Method Positive well nourished and well developed General Appearance ED: well developed and NAD HEENT Reports moist mucous membranes Neck supple and no JVD Resp normal respiratory effort and clear to auscultation bilaterally Cardio regular rate and regular rhythm GI non-distended Palpation: soft and tender epigastric; Negative for guarding or rebound tenderness present Extremity normal to inspection General Extremety ED: Negative for edema or tenderness General Extremity: Negative for edema Neuro CN's II-XII intact bilaterally and no sensory deficits noted Sensorium / Orientation: alert Motor Exam: strength 5/5 throughout Psych mental status grossly normal MDM MDM MDM Narrative Medical decision making narrative: Differential diagnose includes urinary tract infection, sepsis, dehydration, electrolyte abnormality, pneumonia, bronchitis, cardiac dysrhythmia, cardiac ischemia, and coagulopathy. EKG will be obtained to assess for cardiac dysrhythmia and cardiac ischemia. Chest x-ray will be obtained to assess for pneumonia and bronchitis CBC will be obtained to assess for leukocytosis and anemia. Comprehensive metabolic profile will be obtained to assess for thyroid function, renal function, and electrolyte abnormality. Urinalysis will be obtained to assess for urinary tract infection and hematuria. Serum lactate will be obtained to assess for sepsis. PT with INR and PTT will be obtained to assess for coagulopathy. Blood cultures will be obtained to assess for sepsis. Urine culture will be obtained to assess for urinary tract infection. History & Record Review Additional record(s) reviewed:: Prior ED visit and Prior labs Lab Data Attestation: I reviewed the patient's lab results. Lab results narrative: CBC was reviewed and was within normal limits. PT with INR and PTT were reviewed and were within normal limits. Comprehensive metabolic profile was reviewed. Glucose was slightly elevated at 132. Total bilirubin was slightly elevated at 1.31. The remainder was essentially within normal limits. Serum lactate was reviewed and was normal at 1.2. Urinalysis was reviewed. There is no evidence of urinary tract infection or hematuria. Labs: Laboratory Results - last 24 hr 09/10/24 09/10/24 14:25 14:45 WBC 6.7 RBC 4.79 Hgb 13.6 Hct 41.5 MCV 86.6 MCH 28.4 MCHC 32.8 RDW Std Deviation 43.8 RDW Coeff of Milagros 13.7 Plt Count 235 MPV 11.5 Immature Gran % (Auto) 0.400 Neut % (Auto) 67.8 Lymph % (Auto) 24.0 [place] % (Auto) 6.3 Eos % (Auto) 0.9 Baso % (Auto) 0.6 Absolute Neuts (auto) 4.5 Absolute Lymphs (auto) 1.61 Nucleated RBC % 0 PT 13.4 INR 1.0 APTT 28.5 Sodium 141 Potassium 3.9 Chloride 105 Carbon Dioxide 22.4 Anion Gap 13 BUN 17 Creatinine 0.95 Est GFR (MDRD) Non-Af 57 L BUN/Creatinine Ratio 18.1 Glucose 132 H Lactic Acid 1.2 Calcium 10.5 Total Bilirubin 1.31 H AST 23 ALT 13 Alkaline Phosphatase 87 Total Protein 7.5 Albumin 4.4 Globulin 3.1 Albumin/Globulin Ratio 1.5 Urine Color Yellow Urine Clarity Clear Urine pH 6.0 Ur Specific [place] 1.020 Urine Protein 15 H Urine Glucose (UA) Normal Urine Ketones 5 H Urine Occult Blood 10 H Urine Nitrite Negative Urine Bilirubin Negative Urine Urobilinogen Normal Ur Leukocyte Esterase Negative Urine RBC 0 SEEN Urine WBC 0 SEEN Ur Squamous Epith Cells 0 SEEN Urine Bacteria RARE Urine Mucus 0 SEEN Radiography Chest X-Ray - ED: 1 View, Read by ED Physician, Read by Radiologist and No Acute Disease Diagnostic Testing: Clinical Impression(s) from Imaging Studies Chest X-Ray 09/10/24 14:40 IMPRESSION: Negative Chest. Reading Location: [facility] Brain CT 09/10/24 15:49 IMPRESSION: CHRONIC CHANGES. NO ACUTE FINDINGS. Reading Location: [facility] Portable 1 view chest x-ray was obtained. On my independent interpretation, lung thompson are clear. There is normal cardiac silhouette. Bony thorax is normal. There is no acute process noted. Radiologist also interpreted the x-ray and agrees. CT scan of the brain was obtained. There is no acute intracranial abnormality. There are chronic changes noted. This was interpreted by the radiologist and was also independently reviewed by myself. EKG Initial EKG: Attestation: I personally reviewed and interpreted this EKG as follows: Interpretation: Sinus Rhythm (With occasional PVCs with a rate of 83) and No Acute Injury Pattern Comments: EKG was obtained. On my independent interpretation, it showed a normal sinus rhythm with occasional PVCs with a rate of 83. DC interval, QRS interval, and QTc intervals were all normal. [place] was normal. There are no acute ST or T wave changes. Prior EKG tracings: available for review Prior: Unchanged (05/10/2024) Treatment and Re-Evaluation :: Patient and spouse were advised of the findings. The patient is still somewhat confused on reevaluation. Case was discussed with social work supervisor. She was in to evaluate the patient. She states that there is some confusion as to what medications the patient has been taking and when she has been taking them. She states that patient may be taking too much of some of her medications and not enough of her other medications. She feels the patient is safe to go home. She states that the will administer the patient's medications as prescribed. hospitality workers stated that the patient and used to live in an assisted living and when someone was administering her medications to her, she was never confused. hospitality workers states that the patient has 2 daughters that live close by and check on her frequently. Patient and were instructed to follow-up with the patient's primary care physician in 5 to 7 days. Patient and understand and are agreeable with the plan. All questions were answered. Discharge Plan Triage Chief Complaint: Complaint Other Complaint: Confusion ED Provider: Gordo Torrez Dx/Rx/DC Orders Clinical Impression: Confusion, Anxiety Instructions: ED Confusion Prescriptions: No Action cyclobenzaprine 10 MG tablet 10 mg PO QHS PRN PRN (Reason: Spasms) methylphenidate HCl 10 MG tablet 10 mg PO BID levothyroxine 25 MCG tablet 25 mcg PO DAILY oxycodone-acetaminophen 1 TABLET tablet 1 tab PO 5X/DAY diazepam 5 MG tablet 10 mg PO QHS PRN (Reason: Anxiety) metoprolol succinate 50 MG tablet 100 mg PO DAILY fluticasone propionate 1 SPRAY spray,suspension 1 spray NASAL DAILY PRN (Reason: Nasal Congestion) amlodipine 2.5 mg tablet 2.5 mg PO DAILY cholecalciferol (vitamin D3) [Thera-D] 50 mcg (2,000 unit) tablet 50 mcg PO DAILY ciprofloxacin HCl [Cipro] 250 mg tablet 250 mg PO BID 7 Days Qty: 14 0RF phenazopyridine [Pyridium] 200 mg tablet 200 mg PO TID 2 Days Qty: 6 0RF Primary Care Provider: Ana Palmer Referrals: Ana Palmer MD [Primary Care Provider] - 5-7 Days Print Language: Rwandan Disposition Disposition: Home, Self Care Discharge Date/Time: 09/10/24 18:52
--- NOTE | 2024-09-10 14:29 | EKG12_ITS ---
Test Reason : CONFUSION Blood Pressure : */* mmHG Vent. Rate : 83 BPM Atrial Rate : 83 BPM P-R Int : 202 ms QRS Dur : 66 ms QT Int : 370 ms P-R-T Axes : 64 -5 50 degrees QTcB Int : 434 ms Sinus rhythm with occasional Premature ventricular complexes Otherwise normal ECG When compared with ECG of 10-May-2024 05:41, Premature ventricular complexes are now Present Confirmed by ZACK CHRISTENSEN, SRAVANTHI ([id number]), editor managing newspaper JOHNNY MOHR ([id number]) on 09/13/2024 9:51:22 AM Referred By: Confirmed By: SRAVANTHI DIXON MD
--- NOTE | 2024-09-10 14:40 | RAD_ITS ---
PROCEDURE: CHEST 1 VIEW (PORTABLE) 09/10/2024 REASON FOR EXAM: COUGH TECHNIQUE: Frontal view of the chest. COMPARISON: None. FINDINGS: Hardware: None. Heart: The heart size is normal. Lungs: No focal consolidation, pleural effusion or pneumothorax. Bones: Degenerative changes are identified within the thoracic spine. RAD/Chest 1 View (Portable) IMPRESSION: Negative Chest. Reading Location: [id number]
[2024-09-10 15:03] LABS: Absolute Lymphocyte Count 1.61 X10^3/uL (0.83-4.51); Absolute Neutrophil Count 4.5 X10^3/uL (2.0-7.7); Basophil# 0.04 X10^3/uL; Basophil% 0.6 % (0-1); Eosinophil# 0.06 X10^3/uL; Eosinophils% 0.9 % (0-5); Hematocrit 41.5 % (37-47); Hemoglobin 13.6 g/dL (12.0-15.0); Lymphocyte # 1.61 X10^3/ul (0.83-4.51); Mean Corp Hgb Conc 32.8 g/dL (32-36); Mean Corpuscular Hgb 28.4 pg (27.0-32.0); Mean Corpuscular Volume 86.6 fL (81-99); Mean Platelet Vol. 11.5 fl (6.2-12.0); Monocyte# 0.42 X10^3/uL; Monocyte% 6.3 % (0-10); NRBC Flagged by Analyzer 0 % (0-5); Neutrophil # 4.54 X10^3/uL (2.7-7.7); Neutrophil % 67.8 % (47-70); Platelet Count 235 K/mm3 (150-450); RBC Distribution Width CV 13.7 % (11.6-14.6); RBC Distribution Width SD 43.8 fl (35.1-43.9); Red Blood Count 4.79 M/mm3 (4.2-5.4); White Blood Count 6.7 K/mm3 (4.4-11.0)
[2024-09-10 15:15] LABS: Prothrombin Time (Protime)PT. 13.4 SECONDS (11.7-14.9)
[2024-09-10 15:16] LABS: Partial Thromboplast Time 28.5 Seconds (24.1-36.2)
[2024-09-10 15:20] LABS: Mucous, Urine 0 SEEN /hpf (<or=2+); Red Blood Cells-Urine 0 SEEN /hpf (0-5); Squamous Epithelial Cells - UA 0 SEEN /hpf (5-10); White Blood Cells 0 SEEN /hpf (0-5)
[2024-09-10 15:21] LABS: Color, Urine Yellow (Yellow); Glucose, Dipstick Normal (Normal); Ketone-Dipstick 5 mg/dl (Negative); Leukocyte Esterase-Dipstick Negative /ul (Negative); Nitrite-Dipstick Negative (Negative); Occult Blood-Urine 10 /ul (Negative); Protein-Dipstick 15 mg/dl (Negative); Urine Bilirubin Dipstick Negative (Negative); Urine Clarity Clear (Clear); Urine Urobilinogen Normal (Normal)
[2024-09-10 15:21] LABS: ALB/GLOB Ratio 1.5 RATIO (0.9-2.4); AST(SGOT) 23 U/L (<=31); Alanine Aminotransfer ALT/SGPT 13 U/L (<=34); Albumin, Serum 4.4 g/dL (3.4-4.8); Alkaline Phosphatase 87 U/L (35-104); Anion Gap 13 (5-15); BUN 17 mg/dL (4-19); BUN/Creat Ratio 18.1 RATIO (10-20); Calcium,Total 10.5 mg/dL (7.6-11.0); Carbon Dioxide 22.4 mmol/L (21.0-32.0); Chloride 105 mmol/L (98-108); Creatinine, Serum 0.95 mg/dL (0.70-1.20); EST Glomerular Filtration Rate 57 (>60); Globulin 3.1 g/dL (2.2-4.2); Glucose 132 mg/dL (70-99); Potassium 3.9 mmol/L (3.3-5.1); Protein, Total 7.5 g/dL (5.9-8.4); Sodium Level 141 mmol/L (133-145); Total Bilirubin 1.31 mg/dL (0.00-1.30)
[2024-09-10 15:28] LABS: Bacteria RARE /hpf (None Seen)
[2024-09-10 15:45] LABS: Lactic Acid 1.2 mmol/L (0.0-2.0)
--- NOTE | 2024-09-10 15:49 | CT_ITS ---
PROCEDURE: BRAIN/HEAD WITHOUT CONTRAST 09/10/2024 REASON FOR EXAM: CONFUSION TECHNIQUE: Head CT without intravenous contrast. Coronal and Sagittal reconstruction series were provided. One or more dose reduction techniques were used (e.g., Automated exposure control, adjustment of the mA and/or kV according to patient size, use of iterative reconstruction technique. RADIATION DOSE SUMMARY: CTDlvol: 45 mGy DLP: 745 mGycm COMPARISON: None FINDINGS: Brain: Low density in the periventricular white matter suggests mild chronic small vessel ischemic changes. CSF Spaces: Moderate generalized cerebral atrophy Sinuses/Mastoids: Clear at visualized levels Bones: Unremarkable CT/Brain/Head without Contrast IMPRESSION: CHRONIC CHANGES. NO ACUTE FINDINGS. Reading Location: [facility]
--- NOTE | 2024-09-10 18:25 | CM.ED ---
Social Work Date of referral: 09/10/2024 Reason for referral: discharge planning Referred by: ED Doctor Patient provided consent to social work visit. Patient was lying in bed, patient's , Rick and patient's daughter Marta were both at patient's bedside. Marta stated patient has a history of UTI's and on , patient made a comment that she thought she was coming down with a UTI and was experiencing some burning and bleeding with urination. Marta denied any concerns with confusion with patient on Wednesday. Marta stated on Wednesday, patient began to get really confused. Patient didn't know who her was and was calling him her dad. Patient thought there was a group that was going to destroy the world, and when talking to family on the phone, patient told her family they didn't sound like themselves. In talking with patient, patient was oriented to her first and last name, full address, month, not date but knew it was Easter, year and place. Patient was able to identify her daughter Marta however did not identify her as her , and throughout the assessment, referred to her as either her dad or her grandfather. Patient stated she still feels like there is a group that's going to destroy the world, but also stated she knows she things this because she is sick. Last evening, patient stated she was very afraid because there were a lot of strangers in her apartment that were throwing a alliance party and using very foul language so patient locked the bedroom door and slept by herself. Patient also stated she had been fearful that her dad was in the group and had a plan to indoctrinate her into a different yazdanism. Patient stated she was scared because she had never slept there before. Patient stated she woke up this morning and didn't feel like she woke up in her own bed and thought the people who threw the alliance party re-arranged all of her belongings and furniture and believes she even heard someone say they did a great job. Patient stated she was surprised when the people put everything back where it belonged and then realized she was in her apartment which was also frightening. Patient also stated there have been other times where she has seen people walk in the room that other people don't see. Marta stated that patient was diagnosed with Dementia roughly one year ago. Marta and patient's other daughter, Lady, both assist patient with medication management. Marta stated patient and patient's used to live at [facility] in the [facility] and hated it however were both eating 3 meals per day and getting their medications as ordered and were sharp as ever. Now that patient is living in the community with her , patient has been getting into her medication bottles and organizers and mixing everything up and around. Marta stated patient's pills have been off and she believes that this could have something to do with patient's symptoms/confusion. Marta stated she hasn't seen patient's medication organizer since Wednesday. Patient spoke up and admitted she takes 2 pain pills at a time when she's in a lot of pain. Marta confirmed that patient has already ran out of her pain pills however is due for a refill soon. aids social worker provided education and gave Marta 2 written resources for different providers who offer a medication dispenser with alarms that Marta stated she is going to look into for patient. In the meantime, Marta reported that patient is never left home alone. Patient has been eating and sleeping well and has never tried to leave her condo and has never wandered. aids social worker talked about the possibility of getting door alarms to activate at bedtime which would alert patient's should any of the doors leading outside of the condo would be opened. Patient, patient's and patient's daughter, all agreed that between now and then, patient's will collect all bottles of medication as well as the medication organizer (once found) and will administer patient all of her medication as ordered which everyone was agreeable patient's is able to do. Patient will not have access to her medication. Patient's family to get established with a geriatric specialist and will call and make an appointment with patient's PCP, both of whom can further assess patient and patient's needs. Family will closely monitor patient, will make the agreed upon adjustments and will bring patient back to the ED or another medical facility should patient's symptoms persist or worsen. aids social worker conferred with ED doctor who was in agreement with plan. No other needs/concerns identified at this time. Ofelia Colin, MARGIN ANALYST, [employer] ERECTOR HELPER
== END 2024-09-10 18:52 | disposition home or self-care (01) ==
PROVIDERS: Emergency Provider Emergency Medicine; PCP Internal Medicine; Visit Provider Emergency Medicine
DX: R41.0 Disorientation, unspecified (principal); F41.9 Anxiety disorder, unspecified; I10 Essential (primary) hypertension; E03.9 Hypothyroidism, unspecified; Z79.890 Hormone replacement therapy; Z79.899 Other long term (current) drug therapy; Z90.49 Acquired absence of other specified parts of digestive tract
CPT/HCPCS: 36415; 70450; 71045; 80053; 81001; 83605; 85025; 85610; 85730; 87040; 87086; 93005; 99284; A4216